=== PATIENT | female | born 1940 | race Caucasian/White ===

== ENCOUNTER → 2017-10-23 07:28 | Outpatient (CLI) | payer MEDICARE, MEDICAID, SELFPAY | PROVIDERS: PCP Nurse Practitioner Family; Visit Provider Surgery | DX: L97.921 Non-pressure chronic ulcer of unspecified part of left lower leg limited to breakdown of skin (principal) | CPT/HCPCS: 29580; 99213 ==

== ENCOUNTER → 2017-10-28 07:29 | Outpatient (CLI) | payer MEDICARE, MEDICAID, SELFPAY | PROVIDERS: PCP Nurse Practitioner Family; Visit Provider Surgery | DX: Z48.00 Encounter for change or removal of nonsurgical wound dressing (principal); L97.921 Non-pressure chronic ulcer of unspecified part of left lower leg limited to breakdown of skin | CPT/HCPCS: 29580 ==

== ENCOUNTER → 2017-11-04 08:55 | Outpatient (CLI) | payer MEDICARE, MEDICAID, SELFPAY | PROVIDERS: PCP Nurse Practitioner Family; Visit Provider Surgery | DX: L97.921 Non-pressure chronic ulcer of unspecified part of left lower leg limited to breakdown of skin (principal); Z48.00 Encounter for change or removal of nonsurgical wound dressing | CPT/HCPCS: 29580 ==

== ENCOUNTER → 2017-11-11 15:33 | Outpatient (CLI) | payer MEDICARE, MEDICAID, SELFPAY | PROVIDERS: PCP Nurse Practitioner Family; Visit Provider Surgery | DX: L97.921 Non-pressure chronic ulcer of unspecified part of left lower leg limited to breakdown of skin (principal); Z48.00 Encounter for change or removal of nonsurgical wound dressing | CPT/HCPCS: 99212 ==

== ENCOUNTER → 2017-11-12 11:57 | Outpatient (CLI) | payer MEDICARE, MEDICAID, SELFPAY ==
[2017-11-12 13:50] LABS: Ferritin 132 ng/mL (8-388)
== END ==
PROVIDERS: PCP Nurse Practitioner Family; Visit Provider Nurse Practitioner
DX: M25.50 Pain in unspecified joint (principal)
CPT/HCPCS: 36415; 82728

== ENCOUNTER → 2017-11-20 11:04 | Outpatient (BNVA) | payer MEDICARE, MEDICAID, SELFPAY | PROVIDERS: PCP Nurse Practitioner Family; Visit Provider Surgery | DX: L97.309 Non-pressure chronic ulcer of unspecified ankle with unspecified severity (principal) | CPT/HCPCS: 99211 ==

== ENCOUNTER → 2017-12-02 11:22 | Outpatient (BNVA) | payer MEDICARE, MEDICAID, SELFPAY | PROVIDERS: PCP Nurse Practitioner Family; Visit Provider Surgery | DX: L97.321 Non-pressure chronic ulcer of left ankle limited to breakdown of skin (principal); Z48.00 Encounter for change or removal of nonsurgical wound dressing | CPT/HCPCS: 99211 ==

== ENCOUNTER → 2017-12-06 09:12 | Outpatient (BNVA) | payer MEDICARE, MEDICAID, SELFPAY | PROVIDERS: PCP Nurse Practitioner Family; Referring Provider Nurse Practitioner Family; Visit Provider Surgery | DX: R69 Illness, unspecified (principal) ==

== ENCOUNTER → 2017-12-09 10:27 | Outpatient (BNVA) | payer MEDICARE, MEDICAID, SELFPAY | PROVIDERS: PCP Nurse Practitioner Family; Referring Provider Nurse Practitioner Family; Visit Provider Surgery | DX: L97.309 Non-pressure chronic ulcer of unspecified ankle with unspecified severity (principal); Z48.00 Encounter for change or removal of nonsurgical wound dressing | CPT/HCPCS: 99211; 99212 ==

== ENCOUNTER → 2017-12-11 09:55 | Outpatient (BNVA) | payer MEDICARE, MEDICAID, SELFPAY | PROVIDERS: PCP Nurse Practitioner Family; Referring Provider Nurse Practitioner Family; Visit Provider Surgery | DX: L97.321 Non-pressure chronic ulcer of left ankle limited to breakdown of skin (principal); Z48.00 Encounter for change or removal of nonsurgical wound dressing | CPT/HCPCS: 99211 ==

== ENCOUNTER → 2017-12-13 10:00 | Outpatient (BNVA) | payer MEDICARE, MEDICAID, SELFPAY | PROVIDERS: PCP Nurse Practitioner Family; Referring Provider Nurse Practitioner Family; Visit Provider Surgery | DX: R69 Illness, unspecified (principal) ==

== ENCOUNTER → 2017-12-16 10:22 | Outpatient (BNVA) | payer MEDICARE, MEDICAID, SELFPAY | PROVIDERS: PCP Nurse Practitioner Family; Referring Provider Nurse Practitioner Family; Visit Provider Surgery | DX: L97.329 Non-pressure chronic ulcer of left ankle with unspecified severity (principal); Z48.00 Encounter for change or removal of nonsurgical wound dressing; I10 Essential (primary) hypertension | CPT/HCPCS: 99211; 99212 ==

== ENCOUNTER → 2017-12-23 12:53 | Outpatient (BNVA) | payer MEDICARE, MEDICAID, SELFPAY | PROVIDERS: PCP Nurse Practitioner Family; Referring Provider Nurse Practitioner Family; Visit Provider Surgery | DX: L97.321 Non-pressure chronic ulcer of left ankle limited to breakdown of skin (principal); Z48.00 Encounter for change or removal of nonsurgical wound dressing | CPT/HCPCS: 99212 ==

== ENCOUNTER → 2017-12-30 10:33 | Outpatient (BNVA) | payer MEDICARE, MEDICAID, SELFPAY | PROVIDERS: PCP Nurse Practitioner Family; Referring Provider Nurse Practitioner Family; Visit Provider Surgery | DX: L97.321 Non-pressure chronic ulcer of left ankle limited to breakdown of skin (principal); I10 Essential (primary) hypertension | CPT/HCPCS: 99212; 99213 ==

== ENCOUNTER 2018-07-22 00:34 | Outpatient (CLI) | payer MEDICARE, MEDICAID, SELFPAY ==
--- NOTE | 2018-07-22 14:00 | DI.MAMMO_ITS ---
SYMPTOM/DIAGNOSIS: SCREENING, Z12.31, PERSONAL H/O BREAST CA, Z85.3, IN 2009 S/P RADIATION AND LUMPECTOMY MAMMOGRAMS: Mammograms were interpreted according to the usual protocol including computer analysis with CAD system, tomosynthesis and C view imaging. Comparison is with the prior examinations. There are postsurgical changes of a right breast lumpectomy. No suspicious masses or microcalcifications are seen. There has been no significant change compared to the prior examinations. IMPRESSION: No evidence for malignancy. Yearly mammography is recommended. Category 2, breast density C. MQSA ASSESSMENT OF FINDINGS: Negative with benign findings. Category 2. Patient will receive a letter notifying them of these results. Bi-RADS category C. The breasts are heterogeneously dense, which may obscure small masses.
[2018-07-22 14:42] LABS: Hemoglobin A1C 5.9 % (4.5-6.2)
[2018-07-22 15:23] LABS: Anion Gap 8.9 mmol/L (3-11); BUN 21 mg/dL (7-18); CO2 28.1 mmol/L (21.0-32.0); CREATININE 0.92 mg/dL (0.55-1.02); Calcium 9.1 mg/dL (8.5-10.1); Chloride 102 mmol/L (98-107); Cholesterol 191 mg/dL (50-200); Estimated GFR 59.51 (mL/min/1.73m2); Glucose 103 mg/dL (70-100); HDL Cholesterol 81 mg/dL (40-60); LDL CHOLESTEROL 100 mg/dL (<100); Potassium 4.2 mmol/L (3.5-5.1); Sodium 139 mmol/L (136-145); Triglyceride 49 mg/dL (30-150)
== END 2018-07-22 00:54 ==
PROVIDERS: PCP Nurse Practitioner Family; Visit Provider Nurse Practitioner Family
DX: Z12.31 Encounter for screening mammogram for malignant neoplasm of breast (principal); Z85.3 Personal history of malignant neoplasm of breast; E78.5 Hyperlipidemia, unspecified; R73.09 Other abnormal glucose; Z92.3 Personal history of irradiation
CPT/HCPCS: 77063; 77067; 80048; 80061; 83721; 83036

== ENCOUNTER 2019-07-18 13:05 | Emergency (ER) | payer MEDICARE, MEDICAID, SELFPAY ==
[2019-07-18 13:11] VITALS: BP 173/88; PULSE 87; RESP 20; TEMP 36.4; O2SAT 98
--- NOTE | 2019-07-18 13:30 | DI.CT_ITS ---
EXAM: CT CHEST WO CLINICAL HISTORY: s/p fall L side, bruising L neck/clavicle/chest TECHNIQUE: Imaging Protocol: Axial computed tomography images with coronal and sagittal reformatted images were created and reviewed CONTRAST MATERIAL: Intravenous: Omnipaque 350 Contrast volume:None COMPARISON: No exams were available for comparison FINDINGS: Tracheobronchial tree: Patent where visualized. Mediastinum and Patricia: No dominant adenopathy or fluid collection. Pulmonary parenchyma: No consolidation or dominant measurable mass. No architectural distortion. Pleura: No effusion or pneumothorax. Heart: The heart is not dilated. No coronary artery calcifications are seen. Aorta: Thoracic aorta non-dilated. Upper abdomen: There is a large hiatal hernia. Lymph nodes: Within normal limits. Bones: There is a fracture of the mid left clavicle with overriding of fracture fragments. The AC vivian int is not widened. There is no evidence of shoulder dislocation. The spine and sternum appear inta ct. IMPRESSION: Left clavicle fracture. Large hiatal hernia. RADIATION DOSE DELIVERED: Total DLP DATA REPOSITORY: All CT scans at this facility are submitted to the National Radiology Data Registry (NRDR) Dose Index Registry (DIR) with the [employer] ([employer]). RADIATION OPTIMIZATION: All CT scans at this facility use at least one of these dose optimization te chniques: automated exposure control; mA and/or kV adjustment per patient size (includes targeted exa ms where dose is matched to clinical indication); or iterative reconstruction.
--- NOTE | 2019-07-18 13:30 | DI.CT_ITS ---
EXAM: CT CERVICAL SPINE WO CLINICAL HISTORY: s/p fall onto L side, r/o acute inj L neck. TECHNIQUE: Imaging Protocol: Axial computed tomography images with coronal and sagittal reformatted images were created and reviewed CONTRAST MATERIAL: None COMPARISON: HEAD AND CSPINE W/O CONTRAST from 10/03/2017 FINDINGS: Bones: No fracture or dislocations are seen. There are degenerative disc changes greatest at C5-6. Facet degenerative changes are greatest in the upper cervical region causing mild spondylolisthesis. Soft Tissues: The soft tissues of the neck are unremarkable. IMPRESSION: Degenerative changes. No acute abnormality. RADIATION DOSE DELIVERED: Total DLP DATA REPOSITORY: All CT scans at this facility are submitted to the National Radiology Data Registry (NRDR) Dose Index Registry (DIR) with the [employer] (ACR). RADIATION OPTIMIZATION: All CT scans at this facility use at least one of these dose optimization te chniques: automated exposure control; mA and/or kV adjustment per patient size (includes targeted exa ms where dose is matched to clinical indication); or iterative reconstruction.
--- NOTE | 2019-07-18 13:38 | W.ED.GENAD ---
Discharge Plan Disposition Patient Disposition: HOME Condition: Stable Discharge Details Chief Complaint: Chest/Rib Clinical Impression: Closed fracture of left clavicle, Contusion of rib on left side Primary Care Provider: Liz Friend ED Provider: Tamie Valadez Home Meds and New Rx's Prescriptions: Continued lisinopril [Zestril] 20 mg tablet 20 mg PO DAILY Qty: 90 RF: 4 ropinirole 0.5 mg tablet 0.5 mg PO QHS Qty: 90 RF: 4 calcium carb,lactat-vitamin D3 200 mg calcium -250 unit tablet 1 tab PO BID RF: 0 multivitamin [Daily Vitamin] 1 EACH tablet 1 ea PO DAILY RF: 0 citalopram [Celexa] 10 mg tablet 10 mg PO DAILY Qty: 90 RF: 4 omeprazole 20 mg capsule,delayed release(DR/EC) 20 mg PO DAILY Qty: 90 RF: 4 Discharge Instructions Instructions: Clavicle Fracture (ED), Rib Contusion (ED) Additional Instructions: Apply ice to the affected area several times daily for 20 minutes at a time. Alternate tylenol and motrin as needed and directed for pain. You can apply Lidoderm patch to the affected area as needed and directed. Call orthopedics on Saturday to to discuss plan for follow-up. Return to the emergency department with any worsening or new concerning symptoms. Referrals: Tamie Valadez DO [Emergency Provider] - Riley Aguilar MD [ [facility] STAFF PHYSICIAN] - Mazin La MD [ [facility] STAFF PHYSICIAN] - Discharge Data Discharge Date/Time-TO BE ENTERED AT DEPARTURE: 07/18/19 15:14 Discharge Physician: Tamie Valadez Medical Decision Making 1315 -- 78-year-old female presents with left upper neck, clavicle, shoulder, rib status post fall 10 days ago at home. She has healing ecchymosis noted to left lateral neck, clavicle, inferior ribs. There is no crepitus. She has some pain with range of motion in her left shoulder. She is neurovascularly intact. No midline C-spine tenderness. No focal deficits. We will obtain a CT cervical spine and chest to rule out fracture. Will give a dose of ibuprofen and Lidoderm patch. 1445 --imaging reviewed. CT cervical spine negative. CT chest notes left clavicle fracture with suggestion of mild left AC separation. No rib fractures or pneumothorax. Sling placed. Patient placed on orthopedic follow-up list. Patient was offered stronger pain medication for here at home but declines. She was advised to alternate Tylenol and Motrin. She was advised to call orthopedics on Saturday morning for follow-up. Medical Records Medical records reviewed: Yes I reviewed the patient's medical records. Imaging Data Radiologic Study: Radiologist's impression: CT Chest Without Contrast Exam date and time: 07/18/2019 2:02 PM Age: 78 years old Clinical indication: Other: S/P fall L side, bruising L neck/clavicle/chest; Additional info: Shoulder included per doctor TECHNIQUE: Imaging protocol: Computed tomography of the chest without contrast. COMPARISON: No relevant prior studies available. FINDINGS: Lungs: Lung humphrey without features of consolidation. No infiltrates. No edema. Pleural space: No pleural effusions or pneumothorax. Heart: No pericardial effusion. Coronary artery atherosclerotic calcium. Mediastinum: Large hiatal hernia. Aorta: Unremarkable. No aortic aneurysm. Lymph nodes: Unremarkable. No enlarged lymph nodes. Bones/joints: No rib fractures are evident. A displaced left clavicle fracture is present. This shows complete displacement in the region of the mid shaft. There is no scapular fracture evident. The left humeral head and neck are unremarkable. There is slight widening of the left AC joint relative to the right side. This may represent a mild AC separation. Soft tissues: Unremarkable. IMPRESSION: 1. Displaced left clavicle fracture. There is suggestion of a mild left AC joint separation. 2. No rib fractures, scapular fracture or humeral fracture/dislocation. 3. No lung infiltrates or contusion. 4. No pleural effusions or pneumothorax. 5. Large hiatal hernia. CT Cervical Spine Without Contrast Exam date and time: 07/18/2019 1:37 PM Age: 78 years old Clinical indication: Other: S/P fall L side, bruising L neck/clavicle/chest; Additional info: Shoulder included per doctor TECHNIQUE: Imaging protocol: Computed tomography images of the cervical spine without contrast. Radiation optimization: All CT scans at this facility use at least one of these dose optimization techniques: automated exposure control; mA and/or kV adjustment per patient size (includes targeted exams where dose is matched to clinical indication); or iterative reconstruction. COMPARISON: CT HEAD NECK FACIAL WO 09/01/2017 11:15 AM FINDINGS: Vertebrae: Diffuse osteopenia. Degenerative anterolisthesis C3 on 4 measuring approximately 3 mm. There is also degenerative anterolisthesis of C4 on 5 measuring approximately 3 mm. No cervical spine fracture. No traumatic dislocation. Multilevel severe facet and uncovertebral joint degeneration. Discs/Spinal canal/Neural foramina: Degenerative disc disease with severe narrowing at C5-C6. Moderate degenerative disc space narrowing at C4-C5. No significant posterior disc bulge or herniation. Mild bilateral degenerative foraminal stenosis at C5-C6. Soft tissues: Moderate atherosclerotic carotid artery calcifications bilaterally.. Lungs: Bilateral mild scarring. IMPRESSION: 1. Degenerative cervical spine changes bilaterally. 2. No fracture or dislocation. HPI General Mode of arrival: ambulatory. Date/Time Provider Initiated Documentation: 07/18/19 13:09. Limitations to Documentation: no limitations. Information obtained by: patient. HPI Narrative: Patient is a 78-year-old female who presents with left lateral neck, left clavicle, left shoulder and left upper rib pain status post fall 10 days ago. Patient states she fell asleep in a chair in her kitchen when she fell and hit her left upper side on the hard tile floor. She denies any head injury or LOC. She states she called her PCP office that day and was advised to rest and take pain medication as needed. Patient states the pain has been persistent since then. She denies any difficulty breathing abdominal pain, change in appetite or vomiting. She has been taking Tylenol and applying topical Biofreeze to area without relief. Related Data Home Medications Medication Instructions Recorded Confirmed multivitamin [Daily Vitamin] 1 ea PO DAILY 10/01/12 07/18/19 citalopram 10 mg tablet 10 mg PO DAILY #90 tab-cap 10/17/18 07/18/19 omeprazole 20 mg capsule,delayed 20 mg PO DAILY #90 cap 11/28/18 07/18/19 release calcium carbonat and lactate 200 1 tab PO BID tab 07/03/19 07/18/19 mg calcium-vitamin D3 250 unit tablet lisinopril 20 mg tablet 20 mg PO DAILY #90 tab-cap 07/03/19 07/18/19 ropinirole 0.5 mg tablet 0.5 mg PO QHS #90 tab 07/09/19 07/18/19 Previous Rx's Medication Instructions Recorded citalopram 10 mg tablet 10 mg PO DAILY #90 tab-cap 10/17/18 omeprazole 20 mg capsule,delayed 20 mg PO DAILY #90 cap 11/28/18 release lisinopril 20 mg tablet 20 mg PO DAILY #90 tab-cap 07/03/19 ropinirole 0.5 mg tablet 0.5 mg PO QHS #90 tab 07/09/19 Allergies Allergy/AdvReac Type Severity Reaction Status Date / Time codeine AdvReac Mild GI Upset Verified 07/18/19 13:17 polymycin Allergy Mild Uncoded 07/18/19 13:17 polysorbates Allergy Mild eyes swell Uncoded 07/18/19 13:17 General Stated Complaint: Chest/Rib EMELIA: 3 Review of Systems All systems reviewed & are unremarkable except as noted in HPI and below Constitutional Constitutional: Reports as per HPI, Denies chills and Denies fever(s) Eyes Eyes: Denies blurry vision ENT Ears, Nose, Mouth, and Throat: Denies dizziness, Denies sore throat and Denies throat swelling Cardiovascular Cardiovascular: Reports chest pain and Denies dyspnea Respiratory Respiratory: Denies cough and Denies dyspnea Gastrointestinal Gastrointestinal: Denies abdominal pain, Denies diarrhea and Denies vomiting Genitourinary Genitourinary: Denies hematuria and Denies dysuria Musculoskeletal Musculoskeletal: Denies back pain, Denies numbness and Reports other (L clavicle/shoulder/rib pain) Integumentary/Breasts Skin/Breast: Denies lesions and Denies rash Neurologic Neurologic: Denies dizziness, Denies localized weakness and Denies numbness Allergic/Immunologic Allergic/Immunologic: Denies throat swelling [facility] Social History Smoking/Tobacco Use Status: Never Second Hand Exposure: Yes Alcohol Intake: former Drug use: Never Substance use type: does not use Caregiver/Support person: No Household members: none Housing: apartment Communication Needs: Corrective Lenses Do you need help understanding health information?: Rarely 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 Pets and animals: Yes Pets and animals: cat(s) Sexually active: Yes Do you think of yourself as: straight/heterosexual Current gender identity: female What is your relationship status?: How often do you talk on the phone with friends or family?: once per week How often do you get together with friends or relatives?: three or more times per week How often do you attend lutheran or catholic services?: 4 or more times per year Do you belong to any clubs or organized social groups?: yes Panel score (0-1 are the most socially isolated patients): 3 What type of physical activity do you participate in: walking and other Details: Wii bowling, tennis, etc. Duration: 30-45 minutes/day Frequency: 3-4 times per week Sylvia/Muslim: Anglican Special sylvia needs: No Agree to transfusion: Yes Seatbelt use: always Helmet use: No Drive intox or ride w/intox haul driver: No Do you feel safe at home: Yes Do you feel safe in your relationship?: Yes History History 5 Para 4 Hx # Term Pregnancies Multiple births Hx # Pregnancies Ectopic pregnancies AB induced 1 Hx Number of Living Children 3 AB spontaneous Exam Const General: cooperative, healthy appearing and no acute distress HENMT Head: normal to inspection Face and sinus: normal facial exam Eyes General: appearance normal, both eyes and all related structures EOM: EOM intact bilaterally Neck Neck: normal visual inspection and No submandibular swelling Lymphatic: no lymphadenopathy noted Chest Chest: normal inspection of the chest and no tenderness Resp Effort & Inspection: normal respiratory effort and able to speak in complete sentences Auscultation: clear to auscultation bilaterally Cardio Rate: regular rate Rhythm: regular rhythm GI Inspection: normal to inspection Palpation: soft, not firm, not rigid and nontender Auscultation: normal bowel sounds Skin General skin exam: no rashes or lesions noted Neuro General: patient alert, patient awake and patient oriented x3 Cognition: normal cognition Speech: speech normal Motor: muscle tone normal throughout Sensory Exam: no sensory deficits noted Extrem General: normal to inspection, full ROM, capillary refill normal, no calf tenderness bilaterally and no edema Psych Appearance: grossly normal Mental Status: mental status grossly normal Speech and Movement: speech and movement normal Affect: normal affect Course Vital Signs Vital signs: Vital Signs Temperature 97.5 F L 07/18/19 13:11 Pulse 87 07/18/19 13:11 Respiratory Rate 20 07/18/19 13:11 Blood Pressure 173/88 H 07/18/19 13:11 Pulse Oximetry 98 07/18/19 13:11 Temperature 97.5 F L 07/18/19 13:11 Temperature Source Temporal Artery Scan 07/18/19 13:11 Pulse 87 07/18/19 13:11 Respiratory Rate 20 07/18/19 13:11 Respiratory Effort Non-Labored 07/18/19 13:15 Blood Pressure 173/88 H 07/18/19 13:11 Blood Pressure Position Sitting 07/18/19 13:11 Pulse Oximetry 98 07/18/19 13:11 Oxygen Delivery Method Room Air 07/18/19 13:11 Oxygen Flow Rate 0 07/18/19 13:11 Pain Level 7 07/18/19 13:11
[2019-07-18] MEDS: Lidocaine 5% Patch 1 PATCH TP (13:46)
[2019-07-18] MEDS: Ibuprofen 600 MG TAB PO (13:47)
--- NOTE | 2019-07-18 14:24 | DI.VRAD_ITS ---
PROCEDURE INFORMATION: Exam: CT Cervical Spine Without Contrast Exam date and time: 07/18/2019 1:37 PM Age: 78 years old Clinical indication: Other: S/P fall L side, bruising L neck/clavicle/chest; Additional info: Shoulder included per doctor TECHNIQUE: Imaging protocol: Computed tomography images of the cervical spine without contrast. Radiation optimization: All CT scans at this facility use at least one of these dose optimization techniques: automated exposure control; mA and/or kV adjustment per patient size (includes targeted exams where dose is matched to clinical indication); or iterative reconstruction. COMPARISON: CT HEAD NECK FACIAL WO 09/01/2017 11:15 AM FINDINGS: Vertebrae: Diffuse osteopenia. Degenerative anterolisthesis C3 on 4 measuring approximately 3 mm. There is also degenerative anterolisthesis of C4 on 5 measuring approximately 3 mm. No cervical spine fracture. No traumatic dislocation. Multilevel severe facet and uncovertebral joint degeneration. Discs/Spinal canal/Neural foramina: Degenerative disc disease with severe narrowing at C5-C6. Moderate degenerative disc space narrowing at C4-C5. No significant posterior disc bulge or herniation. Mild bilateral degenerative foraminal stenosis at C5-C6. Soft tissues: Moderate atherosclerotic carotid artery calcifications bilaterally.. Lungs: Bilateral mild scarring. IMPRESSION: 1. Degenerative cervical spine changes bilaterally. 2. No fracture or dislocation. Dictated and Authenticated by: Flaco Hinkle MD. Ordering:MARITA Willett MD
--- NOTE | 2019-07-18 14:35 | DI.VRAD_ITS ---
PROCEDURE INFORMATION: Exam: CT Chest Without Contrast Exam date and time: 07/18/2019 2:02 PM Age: 78 years old Clinical indication: Other: S/P fall L side, bruising L neck/clavicle/chest; Additional info: Shoulder included per doctor TECHNIQUE: Imaging protocol: Computed tomography of the chest without contrast. COMPARISON: No relevant prior studies available. FINDINGS: Lungs: Lung humphrey without features of consolidation. No infiltrates. No edema. Pleural space: No pleural effusions or pneumothorax. Heart: No pericardial effusion. Coronary artery atherosclerotic calcium. Mediastinum: Large hiatal hernia. Aorta: Unremarkable. No aortic aneurysm. Lymph nodes: Unremarkable. No enlarged lymph nodes. Bones/joints: No rib fractures are evident. A displaced left clavicle fracture is present. This shows complete displacement in the region of the mid shaft. There is no scapular fracture evident. The left humeral head and neck are unremarkable. There is slight widening of the left AC joint relative to the right side. This may represent a mild AC separation. Soft tissues: Unremarkable. IMPRESSION: 1. Displaced left clavicle fracture. There is suggestion of a mild left AC joint separation. 2. No rib fractures, scapular fracture or humeral fracture/dislocation. 3. No lung infiltrates or contusion. 4. No pleural effusions or pneumothorax. 5. Large hiatal hernia. Dictated and Authenticated by: Flaco Hinkle MD. Ordering:MARITA Willett MD
[2019-07-18 15:08] VITALS: BP 173/72; PULSE 72; RESP 20; TEMP 36.8; O2SAT 99
== END 2019-07-18 15:14 | disposition home or self-care (01) ==
LOC: ER 15:05
PROVIDERS: Emergency Provider Physician Assistant; PCP Nurse Practitioner Family
DX: S42.022A Displaced fracture of shaft of left clavicle, initial encounter for closed fracture (principal); S20.212A Contusion of left front wall of thorax, initial encounter; S10.83XA Contusion of other specified part of neck, initial encounter; W07.XXXA Fall from chair, initial encounter; I10 Essential (primary) hypertension
CPT/HCPCS: 71250; 99284; 72125; 99285; L3650

== ENCOUNTER 2019-07-23 10:53 | Outpatient (REF) | payer MEDICARE, MEDICAID, SELFPAY ==
[2019-07-24 13:09] LABS: Anion Gap 5.5 mmol/L (3-11); BUN 27 mg/dL (7-18); CO2 28.5 mmol/L (21.0-32.0); Calcium 8.9 mg/dL (8.5-10.1); Calculated LDL 104 mg/dL (<100); Chloride 101 mmol/L (98-107); Cholesterol 183 mg/dL (<200); Estimated GFR 53.91 (mL/min/1.73m2); Glucose 102 mg/dL (74-106); HDL Cholesterol 63 mg/dL (40-60); Potassium 4.7 mmol/L (3.5-5.1); Sodium 135 mmol/L (136-145); Triglyceride 81 mg/dL (<150)
== END 2019-07-23 11:13 ==
LOC: LBN 10:53
PROVIDERS: PCP Nurse Practitioner Family; Visit Provider Nurse Practitioner Family
DX: R73.03 Prediabetes (principal)
CPT/HCPCS: 80048; 80061

== ENCOUNTER 2019-08-05 14:17 | Outpatient (CLI) | payer MEDICARE, MEDICAID, SELFPAY ==
--- NOTE | 2019-08-05 14:00 | DI.RAD_ITS ---
EXAM: XR CLAVICLE LT CLINICAL HISTORY: f/u fracture TECHNIQUE: 2D digital imaging was performed. COMPARISON: CR LEFT SHOULDER COMPLETE from 10/03/[address] CHEST WO from 07/18/2019 FINDINGS: BONES: There is a fracture of the midshaft of the left clavicle. There is overriding of the fracture . No bony destructive lesion is seen. JOINTS: The acromioclavicular joint appears well maintained. SOFT TISSUE: Normal. IMPRESSION: Fracture of the midshaft of the left clavicle. DATA REPOSITORY: RADIATION DOSE DELIVERED:
== END 2019-08-05 14:37 ==
PROVIDERS: PCP Nurse Practitioner Family; Referring Provider Nurse Practitioner Family; Visit Provider Student in an Organized Health Care Education/Training Program
DX: S42.022A Displaced fracture of shaft of left clavicle, initial encounter for closed fracture (principal); W19.XXXA Unspecified fall, initial encounter
CPT/HCPCS: 99204; 99215; 73000

== ENCOUNTER 2019-09-16 08:26 | Outpatient (CLI) | payer MEDICARE, MEDICAID, SELFPAY ==
--- NOTE | 2019-09-16 13:15 | DI.RAD_ITS ---
EXAM: XR CLAVICLE LT CLINICAL HISTORY: L clavicle fx TECHNIQUE: 2D digital imaging was performed. COMPARISON: CR XR CLAVICLE LT from 08/05/2019 FINDINGS: There is again seen a fracture of the midshaft of the left clavicle. There is overriding of the frac ture fragments. The acromioclavicular joint appears stable. The bones are osteopenic. No new fract ure or dislocation is seen. The soft tissues are unremarkable. IMPRESSION: Left clavicular fracture. DATA REPOSITORY: RADIATION DOSE DELIVERED:
== END 2019-09-16 08:46 ==
PROVIDERS: PCP Nurse Practitioner Family; Visit Provider Physician Assistant
DX: S42.022D Displaced fracture of shaft of left clavicle, subsequent encounter for fracture with routine healing (principal); X58.XXXD Exposure to other specified factors, subsequent encounter
CPT/HCPCS: 99213; 73000

== ENCOUNTER 2019-11-04 15:49 | Outpatient (CLI) | payer MEDICARE, MEDICAID, SELFPAY ==
--- NOTE | 2019-11-04 13:45 | DI.RAD_ITS ---
EXAM: XR CLAVICLE LT INDICATION: fu fracture left clavicle. COMPARISON: CR XR CLAVICLE LT from 09/16/2019 TECHNIQUE: 2D digital imaging was performed. FINDINGS: There has been continued healing of the distal clavicular fracture. No new abnormalities are seen. DATA REPOSITORY: RADIATION DOSE DELIVERED:
== END 2019-11-04 16:09 ==
PROVIDERS: PCP Nurse Practitioner Family; Referring Provider Nurse Practitioner Family; Visit Provider Student in an Organized Health Care Education/Training Program
DX: S42.032D Displaced fracture of lateral end of left clavicle, subsequent encounter for fracture with routine healing (principal); X58.XXXD Exposure to other specified factors, subsequent encounter; I10 Essential (primary) hypertension
CPT/HCPCS: 99213; 73000

== ENCOUNTER 2019-11-16 03:28 | Emergency (ER) | payer MEDICARE, MEDICAID, SELFPAY ==
[2019-11-16] VITALS (109 sets, daily range): BP systolic 120–199; BP diastolic 47–156; PULSE 73–119; RESP 7–26; TEMP 36.4–37; O2SAT 89–100
--- NOTE | 2019-11-16 03:15 | RT.EKG_ITS ---
APPROVED REPORT Exam: Resting ECG Patient Location: E HR:95 bpm ECG Measurements Heart Rate 95 AXIS MT 189 P 70 QRSd 92 QRS 62 QT 351 T 91 QTc 442 Conclusion Sinus rhythm...normal P axis, V-rate 60- 99 Nonspecific T abnormalities, lateral leads...T <-0.10mV, I aVL V5 V6
--- NOTE | 2019-11-16 03:40 | ED.GENADUL_ITS ---
Discharge Plan Disposition Patient Disposition: [facility] Condition: Stable Discharge Details Chief Complaint: Palpitatns Clinical Impression: Palpitations, Acute UTI, NSTEMI (non-ST elevated myocardial infarction) Primary Care Provider: Liz Friend ED Provider: Tamie Valadez Home Meds and New Rx's Prescriptions: New levofloxacin 750 mg tablet 750 mg PO DAILY Qty: 5 RF: 0 No Action lisinopril [Zestril] 20 mg tablet 20 mg PO DAILY Qty: 90 RF: 4 ropinirole 0.5 mg tablet 0.5 mg PO QHS Qty: 90 RF: 4 calcium carb,lactat-vitamin D3 200 mg calcium -250 unit tablet 1 tab PO BID RF: 0 multivitamin [Daily Vitamin] 1 EACH tablet 1 ea PO DAILY RF: 0 omeprazole 20 mg capsule,delayed release(DR/EC) 20 mg PO DAILY Qty: 90 RF: 4 citalopram [Celexa] 10 mg tablet 10 mg PO DAILY Qty: 90 RF: 4 Discharge Instructions Additional Instructions: if you feel more ill, have difficulty breathing or chest pain/pressure return to the emergency department Medical Decision Making <Gregorio Gamboa MD - Last Filed: 11/16/19 07:06> 79 yo female with hx of htn and gerd comes in after she fell asleep in her recliner then woke up with feeling her heart racing and nausea. Denies fevers, dyspnea, chest pressure, diaphoresis. She arrives HD stable and denies any symptoms currently on exam with clear lungs no jvd,speaking in full sentences and no leg swelling or calf pain. Could have been in svt or afib, in sinus rhythm now. No symptoms such as feeling like she was going to pass out or loc so doubt vtach. No chest pain /pressure so doubt acs but given age could present atypically, will obtain troponin. No evidence of dvt and no hypoxia or tachyc ardia, wells score is low will obtain d dimer to evaluate for PE. No tearing back pain and normal vascular exam so doubt dissection pt's blood work shows no clinically significant abnormalities and d dimer below age adjusted threshold. UA consistent with uti and she states she now has had dysuria on reassesment. Was asleep and awoken to voice without complaints on repeat exam. Will continue to monitor and obtain delta troponin and ecg second troponin mildly elevated at 0.08 and she remains pain free, still states her symptoms were feeling heart racing and did now remember becoming sweaty when this happened. No symptoms now. Will start heparin and asa and discuss with cardiology at [facility] [place] pt signed out to oncoming provider pending cardiology consult Differential Diagnosis Differential Diagnosis: svt, afib, acs Medical Records Medical records reviewed: Yes I reviewed the patient's medical records. Lab Data Lab results reviewed: Yes I reviewed the patient's lab results. ECG Data Attestation: I personally reviewed and interpreted this ECG (s) as follows: Prior ECG tracings: not available for review Interpretation: sinus rhythm, rate of 95, pr 189, no acute st twave ischemic findings 2nd ekg sinus rhythm, HR of 81, pr 181, no acute st t wave ischemic changes <Tamie Valadez DO - Last Filed: 11/16/19 15:15> 0800 --please see Dr. Gamboa's note for initial presentation, exam and plan. Case endorsed to follow-up with [facility] regarding disposition. A portable chest x-ray was obtained which was negative for acute disease. Patient is currently asymptomatic. 0845 --discussed with [facility] cardiology who reviewed EKGs. Accepts patient for transfer for NSTEMI. Accepting physician Dr. Fields. Would like Plavix 300 mg p.o. x1. Agree with plan for heparin drip. Patient remains hemodynamically stable. Patient is agreeable with plan for transfer. Requested posterior EKG and repeat troponin. Posterior EKG noted less than [address] depression in V4R ad V7, no worsening ST elevation. Repeat troponin 0.09. Spoke with both of patient's daughters who were notified of plan and agreeable. Patient states she is a full code at this time with plan for transfer and possible cardiac cath. 1440 -- Trop uptrending to 0.28. EKG appears slightly improved in inferior leads. Pt remains asymptomatic. D/w [facility] transfer center and bed placement and will likely be a couple more hours until bed availability. Medical Records Medical records reviewed: Yes I reviewed the patient's medical records. Imaging Data Radiologic Study: Radiologist's impression: XR PORTABLE CHEST AP CLINICAL HISTORY: palpitations, r/o acute disease TECHNIQUE: 2D digital imaging was performed. COMPARISON: CR CHEST 2 VIEWS PA,LAT from 08/28/2016 CR LEFT SHOULDER COMPLETE from 10/03/2017 FINDINGS: MEDIASTINUM: Large hiatal hernia. HEART: Normal. PULMONARY VASCULATURE: Normal. Atherosclerosis of the thoracic aorta. LUNGS: Clear. Hyperinflation of the lungs suggesting underlying COPD. PLEURAL SPACE: No pleural effusion or pneumothorax. BONE:Healing left clavicular fracture is again seen. OTHER FINDINGS:Normal. IMPRESSION: No acute pulmonary findings. Lab Data Lab results reviewed: Yes I reviewed the patient's lab results. Labs: 11/16/19 03:55 Urine - Reflex from Ua Urine Culture - Pending Laboratory Tests Range/Units 11/16/19 11/16/19 11/16/19 03:40 03:40 03:40 WBC (4.4-10.8) 10^3/uL 3.95 L RBC (3.93-5.22) 10^6/uL 3.99 Hgb (11.2-15.7) g/dL 12.1 Hct (36.0-46.0) % 37.4 MCV (80-95) fL 93.7 MCH (27.0-33.0) pg 30.3 MCHC (32.0-36.0) % 32.4 RDW (11.7-14.6) % 12.3 Plt Count (130-400) 10^3/uL 179 MPV (8.0-11.0) fL 11.6 H Immature Gran % 0.3 Neutrophils % 69.0 Lymphocytes % 17.0 Monocytes % 11.1 Eosinophils % 1.8 Basophils % 0.8 Nucleated RBC % % 0 Absolute Neutrophils (1.2-6.7) 10^3/uL 2.73 Absolute Lymphocytes (1.2-3.4) 10^3/uL 0.67 L Absolute Monocytes (0.1-0.8) 10^3/uL 0.44 Absolute Eosinophils (0.0-0.7) 10^3/uL 0.07 Absolute Basophils (0.0-0.2) 10^3/uL 0.03 PT (9.3-11.0) sec INR (0.9-1.1) APTT (21.0-31.4) sec D-Dimer (<500) ng/mlFEU Sodium (136-145) mmol/L 133 L Potassium (3.5-5.1) mmol/L 4.0 Chloride (98-107) mmol/L 99 Carbon Dioxide (21.0-32.0) mmol/L 25.0 Anion Gap (3-11) mmol/L 9.0 BUN (7-18) mg/dL 24 H Creatinine (0.55-1.02) mg/dL 1.26 H Estimated GFR/1.73 m2 (mL/min/1.73m2) 41.18 Glucose (74-106) mg/dL 127 H Calcium (8.5-10.1) mg/dL 8.5 Magnesium (1.8-2.4) mg/dL 1.7 L Total Bilirubin (0.2-1.0) mg/dL 0.2 AST (15-37) U/L 22 ALT (14-59) U/L 21 Alkaline Phosphatase (46-116) U/L 54 Troponin I (<0.06) ng/mL < 0.05 NT-Pro-B Natriuret Pep (<300) pg/mL 141 Total Protein (6.4-8.2) g/dL 6.7 Albumin (3.4-5.0) g/dL 3.5 Urine Color (Yellow) Urine Clarity (Clear) Urine pH (5-8) Ur Specific [place] (1.005-1.025) Urine Protein (Negative) mg/dL Urine Ketones (Negative) mg/dL Urine Blood (Negative) Urine Nitrite (Negative) Urine Bilirubin (Negative) Urine Urobilinogen (Up TO 0.2) EU/dL Ur Leukocyte Esterase (Negative) Urine RBC (0-2) HPF Urine WBC (0-5) HPF Ur Epithelial Cells (Negative) HPF Urine Crystals (Negative) HPF Urine Bacteria (Negative) HPF Urine Casts (Negative) LPF Urine Mucus (Negative) Ur Culture Indicated? Urine Glucose (Negative) mg/dL Range/Units 11/16/19 11/16/19 11/16/19 03:40 03:40 03:55 WBC (4.4-10.8) 10^3/uL RBC (3.93-5.22) 10^6/uL Hgb (11.2-15.7) g/dL Hct (36.0-46.0) % MCV (80-95) fL MCH (27.0-33.0) pg MCHC (32.0-36.0) % RDW (11.7-14.6) % Plt Count (130-400) 10^3/uL MPV (8.0-11.0) fL Immature Gran % Neutrophils % Lymphocytes % Monocytes % Eosinophils % Basophils % Nucleated RBC % % Absolute Neutrophils (1.2-6.7) 10^3/uL Absolute Lymphocytes (1.2-3.4) 10^3/uL Absolute Monocytes (0.1-0.8) 10^3/uL Absolute Eosinophils (0.0-0.7) 10^3/uL Absolute Basophils (0.0-0.2) 10^3/uL PT (9.3-11.0) sec 9.6 INR (0.9-1.1) 1.0 APTT (21.0-31.4) sec 24.3 D-Dimer (<500) ng/mlFEU 718 H Sodium (136-145) mmol/L Potassium (3.5-5.1) mmol/L Chloride (98-107) mmol/L Carbon Dioxide (21.0-32.0) mmol/L Anion Gap (3-11) mmol/L BUN (7-18) mg/dL Creatinine (0.55-1.02) mg/dL Estimated GFR/1.73 m2 (mL/min/1.73m2) Glucose (74-106) mg/dL Calcium (8.5-10.1) mg/dL Magnesium (1.8-2.4) mg/dL Total Bilirubin (0.2-1.0) mg/dL AST (15-37) U/L ALT (14-59) U/L Alkaline Phosphatase (46-116) U/L Troponin I (<0.06) ng/mL NT-Pro-B Natriuret Pep (<300) pg/mL Total Protein (6.4-8.2) g/dL Albumin (3.4-5.0) g/dL Urine Color (Yellow) Yellow Urine Clarity (Clear) Clear Urine pH (5-8) 6.0 Ur Specific [place] (1.005-1.025) >= 1.030 H Urine Protein (Negative) mg/dL 30 H Urine Ketones (Negative) mg/dL Negative Urine Blood (Negative) Negative Urine Nitrite (Negative) Negative Urine Bilirubin (Negative) Negative Urine Urobilinogen (Up TO 0.2) EU/dL 0.2 Ur Leukocyte Esterase (Negative) Small H Urine RBC (0-2) HPF Negative Urine WBC (0-5) HPF 20-50 H Ur Epithelial Cells (Negative) HPF Few Urine Crystals (Negative) HPF Negative Urine Bacteria (Negative) HPF Few Urine Casts (Negative) LPF Negative Urine Mucus (Negative) Negative Ur Culture Indicated? Yes Urine Glucose (Negative) mg/dL Negative Range/Units 11/16/19 11/16/19 06:10 09:23 WBC (4.4-10.8) 10^3/uL RBC (3.93-5.22) 10^6/uL Hgb (11.2-15.7) g/dL Hct (36.0-46.0) % MCV (80-95) fL MCH (27.0-33.0) pg MCHC (32.0-36.0) % RDW (11.7-14.6) % Plt Count (130-400) 10^3/uL MPV (8.0-11.0) fL Immature Gran % Neutrophils % Lymphocytes % Monocytes % Eosinophils % Basophils % Nucleated RBC % % Absolute Neutrophils (1.2-6.7) 10^3/uL Absolute Lymphocytes (1.2-3.4) 10^3/uL Absolute Monocytes (0.1-0.8) 10^3/uL Absolute Eosinophils (0.0-0.7) 10^3/uL Absolute Basophils (0.0-0.2) 10^3/uL PT (9.3-11.0) sec INR (0.9-1.1) APTT (21.0-31.4) sec D-Dimer (<500) ng/mlFEU Sodium (136-145) mmol/L Potassium (3.5-5.1) mmol/L Chloride (98-107) mmol/L Carbon Dioxide (21.0-32.0) mmol/L Anion Gap (3-11) mmol/L BUN (7-18) mg/dL Creatinine (0.55-1.02) mg/dL Estimated GFR/1.73 m2 (mL/min/1.73m2) Glucose (74-106) mg/dL Calcium (8.5-10.1) mg/dL Magnesium (1.8-2.4) mg/dL Total Bilirubin (0.2-1.0) mg/dL AST (15-37) U/L ALT (14-59) U/L Alkaline Phosphatase (46-116) U/L Troponin I (<0.06) ng/mL 0.08 H* 0.09 H* NT-Pro-B Natriuret Pep (<300) pg/mL Total Protein (6.4-8.2) g/dL Albumin (3.4-5.0) g/dL Urine Color (Yellow) Urine Clarity (Clear) Urine pH (5-8) Ur Specific [place] (1.005-1.025) Urine Protein (Negative) mg/dL Urine Ketones (Negative) mg/dL Urine Blood (Negative) Urine Nitrite (Negative) Urine Bilirubin (Negative) Urine Urobilinogen (Up TO 0.2) EU/dL Ur Leukocyte Esterase (Negative) Urine RBC (0-2) HPF Urine WBC (0-5) HPF Ur Epithelial Cells (Negative) HPF Urine Crystals (Negative) HPF Urine Bacteria (Negative) HPF Urine Casts (Negative) LPF Urine Mucus (Negative) Ur Culture Indicated? Urine Glucose (Negative) mg/dL ECG Data Attestation: I personally reviewed and interpreted this ECG (s) as follows: Interpretation: #1 -- rate of 95, sinus, less than [address] elevation in 2, 3, aVF with less than [address] depression in 1, aVL, V4 and V5 which appears new compared to previous 2017. T wave inversion in aVL. MS 189. QRS 92. QTc 442. #2 -- rate of 81, sinus, [address] elevation in 2, 3, aVF which appears more pronounced compared to previous. T wave inversion in aVL. No acute ST depression noted. MS 181. QRS 86. QTc 462. #3 -- rate of 81, sinus, 1mm ST elevation in 2, 3, aVF. T wave inversion in aVL. No acute ST depression noted. MS 179. QRS 84. QTc 458. #4 -- rate of 90, sinus, less than 1mm ST elevation in 2, 3, aVF. T wave inve rsion in aVL. No acute ST depression noted. MS 173. QRS 84. QTc 458. HPI <Gregorio Gamboa MD - Last Filed: 11/16/19 07:06> General Mode of arrival: EMS . Date/Time Provider Initiated Documentation: 11/16/19 03:36 . Limitations to Documentation: no limitations . Information obtained by: patient . History of Present Illness 79 year old F presents to the emergency department with the chief complaint of felt heart racing, described as moderate, Patient started experiencing this hour(s) (1) and it has been now resolved. No relieving factors improve symptom(s), No exacerbating factors reported . Patient did receive the following treatments prior to arrival, none Related Data Home Medications Medication Instructions Recorded Confirmed multivitamin [Daily Vitamin] 1 ea PO DAILY 10/01/12 11/16/19 omeprazole 20 mg capsule,delayed 20 mg PO DAILY #90 cap 11/28/18 11/16/19 release calcium carbonat and lactate 200 1 tab PO BID tab 07/03/19 11/16/19 mg calcium-vitamin D3 250 unit tablet lisinopril 20 mg tablet 20 mg PO DAILY #90 tab-cap 07/03/19 11/16/19 ropinirole 0.5 mg tablet 0.5 mg PO QHS #90 tab 07/09/19 11/16/19 citalopram 10 mg tablet 10 mg PO DAILY #90 tab-cap 10/21/19 11/16/19 levofloxacin 750 mg PO DAILY #5 tab 11/16/19 Previous Rx's Medication Instructions Recorded omeprazole 20 mg capsule,delayed 20 mg PO DAILY #90 cap 11/28/18 release lisinopril 20 mg tablet 20 mg PO DAILY #90 tab-cap 07/03/19 ropinirole 0.5 mg tablet 0.5 mg PO QHS #90 tab 07/09/19 citalopram 10 mg tablet 10 mg PO DAILY #90 tab-cap 10/21/19 levofloxacin 750 mg PO DAILY #5 tab 11/16/19 Allergies Allergy/AdvReac Type Severity Reaction Status Date / Time codeine AdvReac Mild GI Upset Verified 11/16/19 03:36 polymycin Allergy Mild Uncoded 11/16/19 03:36 polysorbates Allergy Mild eyes swell Uncoded 11/16/19 03:36 General Stated Complaint: Palpitatns EMELIA: 3 Review of Systems <Gregorio Gamboa MD - Last Filed: 11/16/19 07:06> All systems reviewed & are unremarkable except as noted in HPI and below Constitutional Constitutional: Denies chills, Denies fever(s) and Denies weakness Cardiovascular Cardiovascular: Denies chest pain and Denies dyspnea Respiratory Respiratory: Denies cough and Denies dyspnea Gastrointestinal Gastrointestinal: Denies abdominal pain, Denies nausea and Denies vomiting Musculoskeletal Musculoskeletal: Denies joint swelling Neurologic Neurologic: Denies weakness Psychiatric Psychiatric: Denies depression [facility] <Gregorio Gamboa MD - Last Filed: 11/16/19 07:06> Medical History (Updated 11/16/19 @ 08:42 by Tamie Valadez DO) Depressive disorder (Chronic) DNR (do not resuscitate) (Chronic) Essential hypertension (Chronic) GERD (gastroesophageal reflux disease) (Chronic) Iron deficiency anemia (Resolved) 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, ER+, MS+, s/p partial mastectomy and radiation Osteoporosis (Chronic) Periodic limb movement disorder (Chronic) Prediabetes (Chronic) Sensorineural hearing loss, bilateral (Chronic) Sigmoid diverticulosis (Inactive) Ulcer of ankle (Resolved) Surgical History History of bilateral tubal ligation (Acute ~07/1980) S/P cataract surgery (Acute ~2012) 03/2012 right eye; 05/2012 left eye Status post partial mastectomy of right breast (Inactive 05/30/09) Family History Mother , 84 Epilepsy Heart disease Type 2 diabetes mellitus Father , 71 Heart disease Sister , 74 Essential hypertension Osteoporosis Alzheimer disease Depression Stroke Schizophrenia Type 2 diabetes mellitus Brother , 65 Epilepsy Type 2 diabetes mellitus Daughter Stomach ulcer Daughter , at 31 of suicide Depression Daughter Essential hypertension Asthma Daughter Depression Paternal Grandfather , at 44 of [place] Paternal Grandmother , 72 +/- Stroke Maternal Grandfather , 100 Pneumonia No problems noted. 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 Pets and animals: Yes Pets and animals: cat(s) Sexually active: Yes Do you think of yourself as: straight/heterosexual Current gender identity: female What is your relationship status?: How often do you talk on the phone with friends or family?: once per week How often do you get together with friends or relatives?: three or more times per week How often do you attend sikh or worship services?: 4 or more times per year Do you belong to any clubs or organized social groups?: yes Panel score (0-1 are the most socially isolated patients): 3 What type of physical activity do you participate in: walking and other Details: Wii bowling, tennis, etc. Duration: 30-45 minutes/day Frequency: 3-4 times per week Sylvia/Shinto: Holiness Special sylvia needs: No Agree to transfusion: Yes Seatbelt use: always Helmet use: No Drive intox or ride w/intox trencher driver: No Do you feel safe at home: Yes Do you feel safe in your relationship?: Yes History History 5 Para 4 Hx # Term Pregnancies Multiple births Hx # Pregnancies Ectopic pregnancies AB induced 1 Hx Number of Living Children 3 AB spontaneous Exam <Gregorio Gamboa MD - Last Filed: 11/16/19 07:06> Const General: no acute distress Orientation: alert HENMT Head: normal to inspection Ears: external ears normal General nose exam: external nose normal Mouth: moist mucous membranes Eyes General: appearance normal, both eyes and all related structures Neck Neck: normal visual inspection Resp Effort & Inspection: normal respiratory effort and able to speak in complete sentences Cardio Rate: regular rate Skin General skin exam: no rashes or lesions noted Neuro General: patient alert and patient oriented x3 Extrem General: normal to inspection Psych Mental Status: mental status grossly normal Course <Gregorio Gamboa MD - Last Filed: 11/16/19 07:06> Vital Signs Vital signs: Vital Signs Temperature 36.5 C 11/16/19 03:32 Pulse 99 H 11/16/19 03:32 Respiratory Rate 16 11/16/19 03:32 Blood Pressure 141/60 H 11/16/19 03:32 Pulse Oximetry 98 11/16/19 03:32 Temperature 36.5 C 11/16/19 03:32 Temperature Source Skin 11/16/19 03:32 Pulse 99 H 11/16/19 03:32 Respiratory Rate 16 11/16/19 03:32 Respiratory Effort Non-Labored 11/16/19 03:37 Blood Pressure 141/60 H 11/16/19 03:32 Pulse Oximetry 98 11/16/19 03:32 Pain Level 0 11/16/19 03:32 Critical Care Time <Gregorio Gamboa MD - Last Filed: 11/16/19 07:06> Critical Care Time Critical Care Time: Yes Total Critical Care Time: 45 Attestation: time spent reviewing labs, frequent reassessments and hemodynamic monitoring in a patient with nstemi and potential to deteriorate at any time Sign Out <Gregorio Gamboa MD - Last Filed: 11/16/19 07:06> Sign Out Data: Sign Out Comment: repeat troponin 0.08, awaiting cardiology consult at [facility] [place] Last updated by Gregorio Gamboa MD at 11/16/19 07:13
[2019-11-16 03:49] LABS: Abs Immature Grans 0.01 10^3/uL (0.0-0.06); Absolute Basophil Count 0.03 10^3/uL (0.0-0.2); Absolute Eosinophil Count 0.07 10^3/uL (0.0-0.7); Absolute Lymphocyte Count 0.67 10^3/uL (1.2-3.4); Absolute Monocyte Count 0.44 10^3/uL (0.1-0.8); Absolute Neutrophil Count 2.73 10^3/uL (1.2-6.7); Basophils % 0.8; Eosinophils % 1.8; HCT 37.4 % (36.0-46.0); HGB 12.1 g/dL (11.2-15.7); Immature Grans % 0.3; MCH 30.3 pg (27.0-33.0); MCHC 32.4 % (32.0-36.0); MCV 93.7 fL (80-95); MPV 11.6 fL (8.0-11.0); Monocytes % 11.1; Nucleated RBC 0 %; Platelet Count 179 10^3/uL (130-400); RBC 3.99 10^6/uL (3.93-5.22); RDW 12.3 % (11.7-14.6); RDW-SD 42.9 fL; WBC 3.95 10^3/uL (4.4-10.8)
[2019-11-16 04:01] LABS: Bilirubin Negative (Negative); Blood Negative (Negative); Clarity Clear (Clear); Glucose Negative (Negative); Ketones Negative (Negative); Leukocyte Esterase Small (Negative); Nitrite Negative (Negative); Specific Gravity >= 1.030 (1.005-1.025); Urobilinogen 0.2 EU/dL (Up TO 0.2)
[2019-11-16 04:04] LABS: PTT Activated 24.3 sec (21.0-31.4); Prothrombin Time 9.6 sec (9.3-11.0)
[2019-11-16 04:05] LABS: WBC 20-50 HPF (0-5)
[2019-11-16 04:06] LABS: Bacteria Few HPF (Negative); C & S Indicated? Yes; Casts Negative LPF (Negative); Crystals Negative HPF (Negative); Epithelial Cells Few HPF (Negative); Mucus Negative (Negative); RBC Negative HPF (0-2)
[2019-11-16 04:06] LABS: ALT 21 U/L (14-59); AST 22 U/L (15-37); Albumin 3.5 g/dL (3.4-5.0); Alkaline Phosphatase 54 U/L (46-116); BUN 24 mg/dL (7-18); Bilirubin, Total 0.2 mg/dL (0.2-1.0); CREATININE 1.26 mg/dL (0.55-1.02); Calcium 8.5 mg/dL (8.5-10.1); Chloride 99 mmol/L (98-107); Estimated GFR 41.18 (mL/min/1.73m2); Glucose 127 mg/dL (74-106); Magnesium 1.7 mg/dL (1.8-2.4); Sodium 133 mmol/L (136-145); Total Protein 6.7 g/dL (6.4-8.2)
[2019-11-16 04:08] LABS: Troponin I < 0.05 ng/mL (<0.06)
[2019-11-16 04:12] LABS: NT-proBNP 141 pg/mL (<300)
[2019-11-16] MEDS: Normal Saline 1,000 ML 1000 ML IV (04:30)
[2019-11-16 04:36] LABS: D-Dimer 718 ng/mlFEU (<500)
--- NOTE | 2019-11-16 04:45 | RT.EKG_ITS ---
APPROVED REPORT Exam: Resting ECG Patient Location: E HR:81 bpm ECG Measurements Heart Rate 81 AXIS IL 181 P 72 QRSd 86 QRS 58 QT 396 T 78 QTc 462 Conclusion Sinus rhythm...normal P axis, V-rate 60- 99
[2019-11-16] MEDS: levoFLOXacin 500 MG, levoFLOXacin 250 MG 750 MG PO (05:45)
[2019-11-16 06:40] LABS: Troponin I 0.08 ng/mL (<0.06)
[2019-11-16] MEDS: Aspirin 81 MG CHEW 324 MG CH (06:52)
--- NOTE | 2019-11-16 07:45 | DI.RAD_ITS ---
EXAM: XR PORTABLE CHEST AP CLINICAL HISTORY: palpitations, r/o acute disease TECHNIQUE: 2D digital imaging was performed. COMPARISON: CR CHEST 2 VIEWS PA,LAT from 08/28/2016 CR LEFT SHOULDER COMPLETE from 10/03/2017 FINDINGS: MEDIASTINUM: Large hiatal hernia. HEART: Normal. PULMONARY VASCULATURE: Normal. Atherosclerosis of the thoracic aorta. LUNGS: Clear. Hyperinflation of the lungs suggesting underlying COPD. PLEURAL SPACE: No pleural effusion or pneumothorax. BONE:Healing left clavicular fracture is again seen. OTHER FINDINGS:Normal. IMPRESSION: No acute pulmonary findings. DATA REPOSITORY: RADIATION DOSE DELIVERED:
--- NOTE | 2019-11-16 09:00 | RT.EKG_ITS ---
APPROVED REPORT Exam: Resting ECG Patient Location: E HR:81 bpm ECG Measurements Heart Rate 81 AXIS DC 179 P 55 QRSd 84 QRS 56 QT 395 T 76 QTc 458 Conclusion Sinus rhythm...normal P axis, V-rate 60- 99. 1mm ST elevation in II, III, aVF, seen in previous. T wave inversion in aVL. No ST depression noted.
[2019-11-16] MEDS: Clopidogrel 300 MG TAB PO (09:05)
[2019-11-16 09:51] LABS: Troponin I 0.09 ng/mL (<0.06)
[2019-11-16] MEDS: Lisinopril 20 MG TAB PO (10:37)
[2019-11-16] MEDS: Patient's Own Medication 1 EACH MISC PO ×2 (10:45)
--- NOTE | 2019-11-16 13:45 | RT.EKG_ITS ---
APPROVED REPORT Exam: Resting ECG Patient Location: E HR:90 bpm ECG Measurements Heart Rate 90 AXIS FL 173 P 55 QRSd 84 QRS 61 QT 374 T 80 QTc 458 Conclusion Sinus rhythm...normal P axis, V-rate 60- 99 Normal Electrocardiogram
[2019-11-16 14:24] LABS: PTT Activated 67.6 sec (21.0-31.4); Prothrombin Time 10.5 sec (9.3-11.0)
[2019-11-16 14:28] LABS: Troponin I 0.28 ng/mL (<0.06)
--- NOTE | 2019-11-16 16:11 | NUR.NOTE ---
Nursing Note: Notified Theora, daughter that her mother has just left to go to [facility] [place] with JOSE. Melony Louis
== END 2019-11-16 16:10 | disposition short-term general hospital (02) ==
PROVIDERS: Emergency Medicine; Emergency Provider Physician Assistant; PCP Nurse Practitioner Family
DX: I21.4 Non-ST elevation (NSTEMI) myocardial infarction (principal); R00.2 Palpitations; N39.0 Urinary tract infection, site not specified; R11.0 Nausea; I10 Essential (primary) hypertension
CPT/HCPCS: 36415; 80053; 93005; 96365; 96366; 96376; 99291; 71045; 81003; 81015; 83735; 83880; 84484; 85025; 85379; 85610; 85730; 87086; 93010

== ENCOUNTER 2019-11-27 22:30 | Outpatient (REF) | payer MEDICARE, MEDICAID, SELFPAY ==
[2019-11-27 21:07] LABS: Anion Gap 6.2 mmol/L (3-11); BUN 18 mg/dL (7-18); CO2 26.8 mmol/L (21.0-32.0); CREATININE 1.02 mg/dL (0.55-1.02); Calcium 9.3 mg/dL (8.5-10.1); Chloride 95 mmol/L (98-107); Estimated GFR 52.55 (mL/min/1.73m2); Glucose 85 mg/dL (74-106); Potassium 4.6 mmol/L (3.5-5.1); Sodium 128 mmol/L (136-145)
== END 2019-11-27 22:50 ==
LOC: LBN 22:30
PROVIDERS: PCP Nurse Practitioner Family; Visit Provider Nurse Practitioner Family
DX: I10 Essential (primary) hypertension (principal)
CPT/HCPCS: 80048

== ENCOUNTER 2019-12-14 01:20 | Outpatient (CLI) | payer MEDICARE, MEDICAID, SELFPAY ==
--- NOTE | 2019-12-14 07:43 | DI.MAMMO_ITS ---
EXAM: MG MAMMO SCREENING 60 MIN DUR CLINICAL HISTORY: breast cancer screening, PERSONAL H/O BREAST CA,Z85.3 TECHNIQUE: Mammograms were interpreted according to the usual protocol including computer analysis w [employer] CAD system, tomosynthesis and C-view imaging. COMPARISON: 2011 through 2018 FINDINGS: The breasts are composed of heterogeneously dense fibroglandular densities, Breast Density category C . Postlumpectomy changes are again noted in the upper inner quadrant right breast. No suspicious taylor s or suspicious microcalcifications are seen. No skin thickening or abnormal axillary lymph nodes are seen. There has been no significant change from prior exams. IMPRESSION: BI-RADS Category 2 - Benign Findings Yearly screening mammography is recommended. Breast Density - Category C, heterogeneously dense tissue which decreases the sensitivity of the mamm ogram. The mammogram demonstrates the patient's breast tissue is dense. Dense breast tissue is very common a nd is not abnormal but dense breast tissue can make it harder to find cancer on a mammogram. Also, de nse breast tissue may increase breast cancer risk. This information about the result of the mammogram report was provided to the patient to raise their awareness. Use this report when you speak with the patient about their risks for breast cancer, which includes their family history. At that time, you may recommend additional screening tests (Ultrasound or MRI) as they might be useful based on their r isk. A negative radiographic report should not delay biopsy if a dominant or clinically suspicious mass is present. Up to ten percent of cancers are not identified on mammography. A negative report may reinforce clinical impression. Adenosis and dense breasts may obscure an underlying neoplasm. False positive reports average 6 to 10%.
== END 2019-12-14 01:40 ==
PROVIDERS: PCP Nurse Practitioner Family; Visit Provider Nurse Practitioner Family
DX: Z85.3 Personal history of malignant neoplasm of breast (principal); R92.2 Inconclusive mammogram
CPT/HCPCS: 77063; 77067

== ENCOUNTER 2019-12-14 03:16 | Outpatient (CLI) | payer MEDICARE, MEDICAID, SELFPAY ==
[2019-12-14 12:34] LABS: Anion Gap 4.5 mmol/L (3-11); BUN 20 mg/dL (7-18); CO2 30.5 mmol/L (21.0-32.0); CREATININE 0.77 mg/dL (0.55-1.02); Calcium 9.2 mg/dL (8.5-10.1); Chloride 99 mmol/L (98-107); Glucose 81 mg/dL (74-106); Potassium 5.1 mmol/L (3.5-5.1); Sodium 134 mmol/L (136-145)
== END 2019-12-14 03:36 ==
PROVIDERS: PCP Nurse Practitioner Family; Visit Provider Nurse Practitioner Family
DX: E87.1 Hypo-osmolality and hyponatremia (principal)
CPT/HCPCS: 36415; 80048

== ENCOUNTER 2019-12-23 14:49 | Outpatient (CLI) | payer MEDICARE, MEDICAID, SELFPAY ==
--- NOTE | 2019-12-23 13:30 | DI.RAD_ITS ---
EXAM: XR CLAVICLE LT CLINICAL HISTORY: fu fracture TECHNIQUE: COMPARISON: CR XR CLAVICLE LT from 11/04/2019 FINDINGS: Two views were obtained and show previously described moderately displaced mid clavicular fracture, n o gross interval change in alignment of the fracture fragments in comparison with previous films of A ust . IMPRESSION: RADIATION DOSE DELIVERED: Total DLP
== END 2019-12-23 15:09 ==
PROVIDERS: PCP Nurse Practitioner Family; Referring Provider Nurse Practitioner Family; Visit Provider Student in an Organized Health Care Education/Training Program
DX: S42.022D Displaced fracture of shaft of left clavicle, subsequent encounter for fracture with routine healing; X58.XXXD Exposure to other specified factors, subsequent encounter; I10 Essential (primary) hypertension
CPT/HCPCS: 99213; 73000

== ENCOUNTER 2020-02-22 14:03 | Outpatient (CLI) | payer MEDICARE, MEDICAID, SELFPAY ==
--- NOTE | 2020-02-22 12:45 | DI.US_ITS ---
EXAM: US LOWER EXTREMITY VENOUS LT CLINICAL HISTORY: LLE swelling, r/o DVT M79.89 SOFT TISSUE DISORDER TECHNIQUE: Left lower extremity venous ultrasound performed using grayscale, color-flow, and spectra l Doppler analysis. COMPARISON: No exams were available for comparison FINDINGS: The left common femoral, femoral and popliteal veins demonstrate normal compressibility, augmentation , and color Doppler. The posterior tibial veins are patent. Incidentally noted is a fluid collection in the popliteal fossa, probably a Luciano cyst. IMPRESSION: No DVT. Mild deep edema noted in the calf. Luciano cyst noted. DATA REPOSITORY:
== END 2020-02-22 14:23 ==
PROVIDERS: PCP Nurse Practitioner Family; Visit Provider Nurse Practitioner Family
DX: M79.89 Other specified soft tissue disorders (principal); R60.0 Localized edema
CPT/HCPCS: 93971

== ENCOUNTER 2020-07-19 01:22 | Outpatient (CLI) | payer MEDICARE, MEDICAID, SELFPAY ==
--- NOTE | 2020-07-19 15:24 | DI.DEXA_ITS ---
Exam(s) XR DEXA BONE DENSITY W/WO TOI EXAM: XR DEXA BONE DENSITY W/WO TOI CLINICAL HISTORY: hx of osteoporosis, reassess,M81.0 TECHNIQUE: COMPARISON: There are priors for comparison. The most recent is 07/03/2016. FINDINGS: Lateral Spine Image: Unremarkable. No compression deformities identified. Left hip: Total T-Score: -2.0. This compares with -2.0 on the prior examination. Total Z-Score: 0.0 T- and Z-scores: Findings are consistent with osteopenia. Lumbar Spine: Total T-Score: -1.7. This compares to -1.6 on the prior examination. Total Z-Score: 0.9 T- and Z-scores: Findings are consistent with osteopenia. IMPRESSION: Osteopenia in the left hip and lumbar spine.
== END 2020-07-19 01:42 ==
PROVIDERS: PCP Nurse Practitioner Family; Visit Provider Nurse Practitioner Family
DX: M85.88 Other specified disorders of bone density and structure, other site (principal)
CPT/HCPCS: 77080

== ENCOUNTER 2020-12-16 00:54 | Outpatient (CLI) | payer MEDICARE, MEDICAID, SELFPAY ==
[2020-12-16 12:21] LABS: HCT 41.7 % (36.0-46.0); HGB 13.4 g/dL (11.2-15.7); MCH 30.4 pg (27.0-33.0); MCHC 32.1 % (32.0-36.0); MCV 94.6 fL (80-95); MPV 12.7 fL (8.0-11.0); Platelet Count 212 10^3/uL (130-400); RBC 4.41 10^6/uL (3.93-5.22); RDW 13.2 % (11.7-14.6); WBC 5.63 10^3/uL (4.4-10.8)
[2020-12-16 13:00] LABS: Anion Gap 6.8 mmol/L (3-11); BUN 23 mg/dL (7-18); CO2 31.2 mmol/L (21.0-32.0); CREATININE 0.9 mg/dL (0.55-1.02); Calcium 9.1 mg/dL (8.5-10.1); Calculated LDL 59 mg/dL (<100); Chloride 97 mmol/L (98-107); Cholesterol 146 mg/dL (<200); Glucose 86 mg/dL (74-106); HDL Cholesterol 82 mg/dL (40-60); Sodium 135 mmol/L (136-145); Triglyceride 28 mg/dL (<150)
== END 2020-12-16 00:55 | disposition home or self-care (01) ==
LOC: LOS 00:54
PROVIDERS: Nurse Practitioner Family; PCP Nurse Practitioner Family; Visit Provider Nurse Practitioner Family
DX: I10 Essential (primary) hypertension (principal); I25.10 Atherosclerotic heart disease of native coronary artery without angina pectoris
CPT/HCPCS: 36415; 80048; 80061; 85027

== ENCOUNTER 2021-01-02 01:51 | Outpatient (CLI) | payer MEDICARE, MEDICAID, SELFPAY ==
--- NOTE | 2021-01-02 06:30 | DI.MAMMO_ITS ---
Exam(s) MG MAMMO SCREENING 60 MIN DUR EXAM: MG MAMMO SCREENING 60 MIN DUR CLINICAL HISTORY: breast cancer screening,PERSONAL H/O BREAST CA,Z85.3,Z12.39. TECHNIQUE: Bilateral full field digital CC and MLO mammographic images were obtained with 3D tomosyn thesis and utilizing computer aided detection (CAD). COMPARISON: Prior mammograms dating back to 2011, the most recent being November 2019 . FINDINGS: The fibroglandular tissue pattern is again noted to be moderately dense. Stable appearance of the right breast lumpectomy site including scarring and dystrophic calcification in this region. There are no new spiculated masses nor new malignant appearing microcalcification groups. No new architectural distortion IMPRESSION: No radiographic evidence of malignancy. Stable benign findings. BI-RADS Category 2 - Benign Findings Breast Density - Category C - Heterogeneously dense Breast density Category C or D implies that the patient has dense breast tissue. Dense breast tissue can make it harder to find cancer on a mammogram. Dense breast tissue is also associated with an incr eased risk of breast cancer. This information about the result of the mammogram report was provided to the patient to raise their awareness. Use this report when you speak with the patient about their risks for breast cancer, which includes their family history. At that time, you may recommend additional screening tests (Ultrasoun d or MRI) as these tests may add significant information. A negative radiographic report should not delay biopsy if a dominant or clinically suspicious mass is present. Up to ten percent of cancers are not identified on mammography. A negative report may reinforce clinical impression. Adenosis and dense breasts may obscure an underlying neoplasm. False positive reports average 6 to 10%. Patient will receive a letter notifying them of these results.
== END 2021-01-02 02:11 ==
PROVIDERS: PCP Nurse Practitioner Family; Visit Provider Nurse Practitioner Family
DX: Z12.31 Encounter for screening mammogram for malignant neoplasm of breast (principal); Z85.3 Personal history of malignant neoplasm of breast; R92.8 Other abnormal and inconclusive findings on diagnostic imaging of breast
CPT/HCPCS: 77063; 77067

== ENCOUNTER 2021-03-23 02:25 | Outpatient (CLI) | payer MEDICARE, MEDICAID, SELFPAY ==
--- NOTE | 2021-03-23 07:00 | DI.US_ITS ---
Exam(s) US LOWER EXTREMITY VENOUS LT EXAM: US LOWER EXTREMITY VENOUS LT CLINICAL HISTORY: Unilateral LLE swelling x 1wk, r/o DVT,M79.89 TECHNIQUE: Left lower extremity venous ultrasound performed using grayscale, color-flow, and spectra l Doppler analysis. COMPARISON: US US LOWER EXTREMITY VENOUS LT from 02/22/2020 FINDINGS: The left common femoral, femoral and popliteal veins demonstrate normal compressibility, augmentation , and color Doppler. The posterior tibial veins are patent. The saphenofemoral junction is unremarka ble. There is no evidence of a Luciano cyst. The soft tissues are unremarkable. IMPRESSION: No DVT. DATA REPOSITORY:
== END 2021-03-23 02:45 ==
PROVIDERS: PCP Nurse Practitioner Family; Visit Provider Nurse Practitioner Family
DX: M79.89 Other specified soft tissue disorders (principal)
CPT/HCPCS: 93971

== ENCOUNTER 2021-08-10 03:19 | Outpatient (CLI) | payer MEDICARE, MEDICAID, SELFPAY ==
[2021-08-10 13:46] LABS: Anion Gap 4.4 mmol/L (3-11); BUN 28 mg/dL (7-18); CO2 30.6 mmol/L (21.0-32.0); CREATININE 1.1 mg/dL (0.55-1.02); Calcium 9.1 mg/dL (8.5-10.1); Chloride 103 mmol/L (98-107); Estimated GFR 48.04 (mL/min/1.73m2); Glucose 83 mg/dL (74-106); Sodium 138 mmol/L (136-145); TSH (W/Ref FT4) 1.69 uIU/mL (0.36-3.74)
== END 2021-08-10 03:20 | disposition home or self-care (01) ==
LOC: LOS 03:19
PROVIDERS: PCP Nurse Practitioner Family; Visit Provider Family Medicine
DX: E03.9 Hypothyroidism, unspecified (principal); F32.9 Major depressive disorder, single episode, unspecified; I10 Essential (primary) hypertension
CPT/HCPCS: 36415; 80048; 84443

== ENCOUNTER → 2022-01-03 01:35 | Outpatient (CLI) | payer MEDICARE, MEDICAID, SELFPAY ==
--- NOTE | 2022-01-03 07:15 | DI.MAMMO_ITS ---
Exam(s) MG MAMMO SCREENING 60 MIN DUR EXAM: MG MAMMO SCREENING 60 MIN DUR CLINICAL HISTORY: breast cancer screening, personal h/o breast ca,z85.3. TECHNIQUE: Bilateral full field digital CC and MLO mammographic images were obtained with 3D tomosyn thesis and utilizing computer aided detection (CAD). COMPARISON: Prior mammograms were reviewed, the most recent being . FINDINGS: There has been no significant change in the appearance and distribution of the fibroglandular tissue. Right breast lumpectomy site remains stable in appearance. There are no new spiculated masses nor new malignant appearing microcalcification groups. No new skin thickening. IMPRESSION: No radiographic evidence of malignancy. Continued stable appearance of the right breast lumpectomy s ite. BI-RADS Category 2 - Benign Findings Breast Density - Category C - Heterogeneously dense Breast density Category C or D implies that the patient has dense breast tissue. Dense breast tissue can make it harder to find cancer on a mammogram. Dense breast tissue is also associated with an incr eased risk of breast cancer. This information about the result of the mammogram report was provided to the patient to raise their awareness. Use this report when you speak with the patient about their risks for breast cancer, which includes their family history. At that time, you may recommend additional screening tests (Ultrasoun d or MRI) as these tests may add significant information. A negative radiographic report should not delay biopsy if a dominant or clinically suspicious mass is present. Up to ten percent of cancers are not identified on mammography. A negative report may reinforce clinical impression. Adenosis and dense breasts may obscure an underlying neoplasm. False positive reports average 6 to 10%. Patient will receive a letter notifying them of these results.
== END ==
PROVIDERS: PCP Nurse Practitioner Family; Visit Provider Family Medicine
DX: Z85.3 Personal history of malignant neoplasm of breast (principal); Z12.31 Encounter for screening mammogram for malignant neoplasm of breast; R92.8 Other abnormal and inconclusive findings on diagnostic imaging of breast
CPT/HCPCS: 77063; 77067

== ENCOUNTER 2022-08-03 01:29 | Outpatient (CLI) | payer MEDICARE, MEDICAID, SELFPAY ==
--- NOTE | 2022-08-03 08:15 | DI.RAD_ITS ---
Exam(s) XR KNEE RT 3V AP,LAT,ANUJ EXAM: XR KNEE RT 3V AP,LAT,ANUJ CLINICAL HISTORY: Right knee pain and swelling for 3 w; no trauma,m25.561. TECHNIQUE: 2D digital imaging was performed of the right knee. Four views obtained. AP, lateral and PA tunnel views were obtained. COMPARISON: There are no priors for comparison. FINDINGS: BONES: No acute fracture is present. No bony destructive lesion is seen. There is an enthesophyte at the superior patella. JOINTS: The knee is normally aligned. No joint effusion is seen. There is moderate narrowing of the m edial femoral tibial joint. SOFT TISSUE: There is swelling of the soft tissues anterior to the patella. Atherosclerosis is prese nt. IMPRESSION: 1. Soft tissue swelling anterior to the patella. This may represent appear patellar bursitis. Soft tissue mass or hematoma cannot be excluded. Please correlate clinically. 2. Mild narrowing of the medial femoral tibial joint. 3. No joint effusion. DATA REPOSITORY: RADIATION DOSE DELIVERED:
== END 2022-08-03 01:49 ==
LOC: DI 01:29
PROVIDERS: PCP Nurse Practitioner Family; Visit Provider Nurse Practitioner Family
DX: M25.561 Pain in right knee (principal); R93.6 Abnormal findings on diagnostic imaging of limbs
CPT/HCPCS: 73562

== ENCOUNTER 2022-09-28 01:39 | Outpatient (CLI) | payer MEDICARE, MEDICAID, SELFPAY ==
[2022-09-28 12:44] LABS: Anion Gap 8.1 mmol/L (3-11); BUN 26 mg/dL (7-18); CO2 28.9 mmol/L (21.0-32.0); Calcium 9.1 mg/dL (8.5-10.1); Chloride 103 mmol/L (98-107); Estimated GFR 57.31 (mL/min/1.73m2); Glucose 85 mg/dL (74-106); Potassium 4.5 mmol/L (3.5-5.1); Sodium 140 mmol/L (136-145)
== END 2022-09-28 01:40 | disposition home or self-care (01) ==
LOC: LOS 01:39
PROVIDERS: PCP Nurse Practitioner Family; Visit Provider Nurse Practitioner Family
DX: I10 Essential (primary) hypertension (principal)
CPT/HCPCS: 36415; 80048

== ENCOUNTER → 2023-01-10 02:29 | Outpatient (CLI) | payer MEDICARE, MEDICAID, SELFPAY ==
--- NOTE | 2023-01-10 11:30 | DI.MAMMO_ITS ---
Exam(s) MG MAMMO SCREENING 60 MIN DUR EXAM: MG MAMMO SCREENING 60 MIN DUR CLINICAL HISTORY: breast cancer screening,H/O RT BREAST CA,Z85.3,Z12.39 TECHNIQUE: Mammograms were interpreted according to the usual protocol including computer analysis w [employer] CAD system, tomosynthesis and C-view imaging. COMPARISON: 2013 through 2021 FINDINGS: The breasts are composed of heterogeneously dense fibroglandular densities, Breast Density category C . No suspicious masses or suspicious microcalcifications are seen. Postlumpectomy changes are again no rhett the right breast. Stable benign calcifications in the right breast. No skin thickening or abnormal axillary lymph nodes are seen. There has been no significant change from prior exams. IMPRESSION: BI-RADS Category 2-Benign Findings Yearly screening mammography is recommended. Breast Density Category C, heterogeneously Dense. The mammogram demonstrates the patient's breast tissue is dense. Dense breast tissue is very common a nd is not abnormal but dense breast tissue can make it harder to find cancer on a mammogram. Also, de nse breast tissue may increase breast cancer risk. This information about the result of the mammogram report was provided to the patient to raise their awareness. Use this report when you speak with the patient about their risks for breast cancer, which includes their family history. At that time, you may recommend additional screening tests (Ultrasound or MRI) as they might be useful based on their r isk. A negative radiographic report should not delay biopsy if a dominant or clinically suspicious mass is present. Up to ten percent of cancers are not identified on mammography. A negative report may reinforce clinical impression. Adenosis and dense breasts may obscure an underlying neoplasm. False positive reports average 6 to 10%.
== END ==
PROVIDERS: PCP Nurse Practitioner Family; Visit Provider Nurse Practitioner Family
DX: Z12.31 Encounter for screening mammogram for malignant neoplasm of breast (principal); Z85.3 Personal history of malignant neoplasm of breast
CPT/HCPCS: 77063; 77067

== ENCOUNTER 2023-06-28 10:16 | Outpatient (CLI) | payer MEDICARE, MEDICAID, SELFPAY ==
[2023-06-28 12:13] LABS: Abs Immature Grans 0.02 10^3/uL (0.0-0.06); Absolute Basophil Count 0.04 10^3/uL (0.0-0.2); Absolute Eosinophil Count 0.13 10^3/uL (0.0-0.7); Absolute Monocyte Count 0.58 10^3/uL (0.1-0.8); Absolute Neutrophil Count 3.47 10^3/uL (1.2-6.7); Basophils % 0.7; Eosinophils % 2.4; HCT 42.3 % (36.0-46.0); HGB 13.9 g/dL (11.2-15.7); Immature Grans % 0.4; Lymphocytes % 20.6; MCHC 32.9 % (32.0-36.0); MCV 94 fL (80-95); MPV 12.7 fL (8.0-11.0); Monocytes % 10.9; Platelet Count 192 10^3/uL (130-400); RBC 4.48 10^6/uL (3.93-5.22); RDW-SD 45.1 fL; WBC 5.34 10^3/uL (4.4-10.8)
[2023-06-28 12:37] LABS: ALT 31 U/L (14-59); AST 29 U/L (15-37); Albumin 3.9 g/dL (3.4-5.0); Alkaline Phosphatase 69 U/L (46-116); Anion Gap 7.7 mmol/L (3-11); BUN 23 mg/dL (7-18); Bilirubin, Total 0.8 mg/dL (0.2-1.0); CO2 28.3 mmol/L (21.0-32.0); Calcium 9.5 mg/dL (8.5-10.1); Calculated LDL 61 mg/dL (<100); Chloride 104 mmol/L (98-107); Cholesterol 150 mg/dL (<200); Estimated GFR 56.95 (mL/min/1.73m2); Glucose 92 mg/dL (74-106); HDL Cholesterol 84 mg/dL (40-60); Potassium 5.1 mmol/L (3.5-5.1); Sodium 140 mmol/L (136-145); Total Protein 7.5 g/dL (6.4-8.2); Triglyceride 29 mg/dL (<150)
[2023-06-28 13:07] LABS: Hemoglobin A1C 6.1 % (<5.7)
[2023-06-28 19:49] LABS: Hepatitis C Ab w Rflx HCV PCR Negative (Negative)
== END 2023-06-28 10:17 | disposition home or self-care (01) ==
LOC: LOS 10:16
PROVIDERS: PCP Nurse Practitioner Family; Referring Provider Nurse Practitioner Family; Visit Provider Nurse Practitioner Family
DX: Z00.00 Encounter for general adult medical examination without abnormal findings (principal); I25.10 Atherosclerotic heart disease of native coronary artery without angina pectoris; R73.01 Impaired fasting glucose
CPT/HCPCS: 36415; 80053; 80061; 86803; 83036; 85025

== ENCOUNTER → 2023-07-25 00:29 | Outpatient (CLI) | payer MEDICARE, MEDICAID, SELFPAY ==
--- NOTE | 2023-07-25 12:49 | DI.DEXA_ITS ---
Exam(s) XR DEXA BONE DENSITY W/WO TOI EXAM: XR DEXA BONE DENSITY W/WO TOI CLINICAL HISTORY: osteopenia 2020,screening for osteoporosis in postmenopausal woman,z78.0 TECHNIQUE: COMPARISON: CR XR DEXA BONE DENSITY W/WO TOI from 07/19/2020 FINDINGS: Lateral Spine Image: Unremarkable. No compression deformities identified. Left hip: Total T-Score: -2.3. This compares to -2.0 on the prior examination. Total Z-Score: -0.2 T- and Z-scores: Findings are consistent with osteopenia. There is osteoporosis in the femoral neck with a T-score of -3.4. Lumbar Spine: Total T-Score: -2.0. This compares to -1.8 on the prior examination. Total Z-Score: 0.8 T- and Z-scores: Findings are consistent with osteopenia. There are findings of osteoporosis in the L1 and L2 vertebral bodies with T-scores of -2.5 and -2.6 respectively. Left forearm: Osteoporosis is seen with a total T-score of -2.7 and a Z-score of 0.4. IMPRESSION: There is evidence of osteoporosis in the femoral neck and the L1 and L2 vertebral bodies.
== END ==
PROVIDERS: PCP Nurse Practitioner Family; Visit Provider Nurse Practitioner Family
DX: Z13.820 Encounter for screening for osteoporosis (principal); Z78.0 Asymptomatic menopausal state; M81.0 Age-related osteoporosis without current pathological fracture
CPT/HCPCS: 77080

== ENCOUNTER 2023-07-25 10:37 | Outpatient (CLI) | payer MEDICARE, MEDICAID, SELFPAY ==
--- NOTE | 2023-07-25 10:30 | RT.EKG_ITS ---
APPROVED REPORT Exam: Resting ECG Reason for Exam: CAD Patient Location: O HR:64 bpm ECG Measurements Heart Rate 64 AXIS DE 198 P 53 QRSd 91 QRS 58 QT 411 T 59 QTc 424 Conclusion Sinus rhythm...normal P axis, V-rate 50- 99 Normal Electrocardiogram
== END 2023-07-25 10:38 | disposition home or self-care (01) ==
LOC: DI.CARD 10:37
PROVIDERS: PCP Nurse Practitioner Family; Visit Provider Internal Medicine Cardiovascular Disease
DX: I25.10 Atherosclerotic heart disease of native coronary artery without angina pectoris (principal)
CPT/HCPCS: 93010

== ENCOUNTER 2024-01-24 00:15 | Outpatient (CLI) | payer MEDICARE, MEDICAID, SELFPAY ==
--- OUTSIDE RECORDS SUMMARY | 2024-01-24 00:20 | XMS_ITS | Encounter Summary ---
Author Organization Count Includes [facility] [place] [address] Care Team Providers Care Direct Sales Consultant Name Role Phone Nelia Bone Jodie DENNEY Primary Care Provider [phone]- [phone] Encounter Details Date Type Department Care Team (Late st Contact Info) Description 10/25/2022 10:30 AM EDT Tech Visit [place] [address] Britt Girard Peripheral vascular disease, unspecified Social History Tobacco Use Types Packs/Day Years Used Date Smoking Tobacco: Never Alcohol Use Standard Drinks/Week Comments Not Currently 0 (1 standard drink = 0.6 oz pur e alcohol) Sex and Gender Information Value Date Recorded Sex Assigned at Not on file Gender Identity Not on file Sexual Orientation Not on file documented as of this encounter Plan of Treatment Not on file documented as of this encounter Procedures Procedure Name Priority Date/Time Associated Diagnosis Comments RAYMUNDO, LEGS, MULTIPLE LEVELS STAT 10/25/2022 10:35 AM EDT Peripheral vascular disease, unspecified documented in this encounter Results * RAYMUNDO, legs, multiple levels (10/25/2022 10:35 AM EDT) VB Text Report Department: Vascular Surgery Lab Patient: [id number] (BINA WHITE) CPT: 35135 Referring Physician: LIZ THOMAS ?? Phone: Indications: Suspect PVD ??? Perfusion Diabetes mellitus: No Findings: Right ?Pressure (mm Hg) ?? RAYMUNDO ??Waveform ?? Brachial Artery ?128 ? Common Femoral Artery ?Triphasic ?? Popliteal Artery ? Triphasic ?? Dorsalis Pedis (Ankle) Artery ?134 ? 1.05 ??Triphasic ?? Posterior Tibial (Ankle) Artery ??141 ? 1.10 ??Triphasic ?? Left ? Pressure (mm Hg) ?? RAYMUNDO ??Waveform ?? Brachial Artery ?127 ? Common Femoral Artery ?Triphasic ?? Popliteal Artery ? Triphasic ?? Dorsalis Pedis (Ankle) Artery ?131 ? 1.02 ??Triphasic ?? Posterior Tibial (Ankle) Artery ??129 ? 1.01 ??Triphasic ?? Interpretation: RIGHT: No significant lower extremity arterial occlusive disease identifiable at rest. Normal ankle/brachial pressure ratios and ankle Doppler waveforms. LEFT: No significant lower extremity arterial occlusive disease identifiable at rest. Normal ankle/brachial pressure ratios and ankle Doppler waveforms. Comparison: ??No previous study in our vascular lab database for comparison. Electronically Signed by: CAMRON MCDONALD on 2022-10-25 12:21:53 PM [facility] VB Text Report End of Report [facility] 10/25/2022 10:3 5 AM EDT Liz Adjfabu TONGUE PRESSER VASCULAR ORDERABLES [facility] documented in this encounter Visit Diagnoses Diagnosis Peripheral vascular disease, unspecified documented in this encounter Care Teams Direct Sales Consultant Relationship Specialty Start Date End Date Nelia Bone APRN [address] [place] [address] PCP - General Urology 10/25/22 documented as of this encounter
--- OUTSIDE RECORDS SUMMARY | 2024-01-24 00:20 | XMS_ITS | Encounter Summary ---
Author Organization [facility] Address [address] [place] [address] Care Team Providers Care Custodial Aide Name Role Phone Unavailable Primary Care Provider Unavailabl e Encounter Details Date Type Department Care Team (Late st Contact Info) Description 02/03/2009 Orders Only [facility] Laboratory Services - [facility] [address], [place] [address] Laura Castillo MD [address] [place] [address] Social History Tobacco Use Types Packs/Day Years Used Date Smoking Tobacco: Never Assessed Sex and Gender Information Value Date Recorded Sex Assigned at Not on file Gender Identity Not on file Sexual Orientation Not on file documented as of this encounter Plan of Treatment Not on file documented as of this encounter Procedures Procedure Name Priority Date/Time Associated Diagnosis Comments HPV DETECTION, HIGH RISK TYPES Routine 02/03/2009 13:59 EST CYTOPATHOLOGY Routine 02/03/2009 0:00 EST documented in this encounter Results * HUMAN PAPILLOMA VIRUS DNA TEST (02/03/2009 13:59 EST) Specimen Description Cervix, ThinPrep vial [facility] Result Negative for HPV types 16, 18, 31, 33, 35, 39, 45, 51, 52, 56, 58, 59, and 68. [facility] Report Status Final 02/16/2009 [facility] 02/03/2009 13:5 9 EST 02/11/2009 13:59 EST Laura Castillo MD MICROBIOLOGY - GENER AL ORDERABLES [facility] [address] [address] * CYTOPATHOLOGY (02/03/2009 0:00 EST) Pathology Report: CYTOPATHOLOGY REPORT ? Reports generated via electronic interface contain original data; ? however they are lacking the format of the original report. ? Caution should be taken when reading/interpreti ng unformatted reports. ? Name: ? KATLYN WHITE ? Accession #: ? [id number] ? : ? 1940 (Age: 68) ??F ?Collect Date: ? 02/03/2009 ? Location: ? [facility] ? Receive Date: ? 02/04/2009 ? Provider: ?LAURA S LABARTHE MD ? Copy to: ? Specimen/Source: ?Pap Test, Cervix/Endocervix, ThinPrep Imaging System ? with manual evaluation ? 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 Other: ? HPVDX - HPV testing requested regardless of diagnosis on current ThinPrep Pap ?? test. ? SPECIMEN ADEQUACY ? Satisfactory for Evaluation ? - assessment of transformation zone component not applicable ( e.g. atrophy, ? vaginal sample, hysterectomy) ? GENERAL CATEGORIZATION ? Negative for Intraepithelial Lesion or Malignancy ? Document reviewed and electronically signed by: ? Liv Nobles. Colasacco, SCT(ASCP) ? Report Date: ??02/11/2009 09:39 ? End of Report ? [facility] 02/03/2009 02/04/2009 Laura Castillo MD PATHOLOGY ORDERABLES [facility] [address] [place] [address] documented in this encounter Visit Diagnoses Not on filedocumented in this encounter
--- OUTSIDE RECORDS SUMMARY | 2024-01-24 00:20 | XMS_ITS | Encounter Summary ---
Author Organization [facility] Address [address] [place] [address] Care Team Providers Care [employer] Membership Advisors Name Role Phone Unknown, Provider Primary Care Provider Unava ilable Encounter Details Date Type Department Care Team (Late st Contact Info) Description 09/25/2004 Results Only [facility] [address] [place] [address] Brian Gross MD [address] [place] [id number] Social History Tobacco Use Types Packs/Day Years Used Date Smoking Tobacco: Never Assessed Sex and Gender Information Value Date Recorded Sex Assigned at Not on file Gender Identity Not on file Sexual Orientation Not on file documented as of this encounter Plan of Treatment Not on file documented as of this encounter Procedures Procedure Name Priority Date/Time Associated Diagnosis Comments SURGICAL PATHOLOGY Routine 09/25/2004 0:00 EDT documented in this encounter Results * SURGICAL PATHOLOGY (09/25/2004 0:00 EDT) Pathology Report: SURGICAL PATHOLOGY REPORT Reports generated via electronic interface contain original data; however they are lacking the format of the original report. Caution should be taken when reading/interpreti ng unformatted reports. Name: ? KATLYN WHITE ? Accession #: ? [id number] ? : ? 1940 (Age: 63) ??F ? Collect Date: ? 09/25/2004 ? Location: ? [facility] ? Receive Date: ? 09/25/2004 ? Provider: BRIAN GROSS MD Copy to: IZABELA MCNEIL MD ? Final Pathologic Diagnosis: A. ?Skin of eyebrow region, left, inferior margin, excision: 1. ?Melanocytic nevus, intradermal type. ? - Nevus extends to margin of excision specimen. B. ?Skin of eyebrow region, left, medial margin biopsy: 1. ?Melanocytic nevus, intradermal type. ? - Nevus extends to edges of biopsy specimen. Microscopic Description: ? Both specimens show similar features. Sections are of a papule with mild epidermal hyperplasia and hyperkeratosis. ??There is a proliferation of melanocytes within the dermis. ??The proliferation consists of nests, cords, and strands that diminish in size with descent into the dermis. ??The melanocytes are slightly enlarged but generally have round-oval nuclei and a moderate amount of cytoplasm. ??The melanocytes show exchange teller maturation. ??(Dr. Lima)/[facility] Document reviewed and electronically signed by: STACI LIMA MD Report ??Date: 09/27/2004 15:29 By the signature above, the attending physician certifies that he/she has personally conducted a gross and/or microscopic examination of the described specimens and rendered or confirmed the above diagnosis. Specimen(s) Received: A. ?Inferior margin L brow B. ?Medial margin L brow Clinical History: ? Skin lesions left brow, present many yrs Gross Description: ? Received in formalin labelled White and left brow skin lesion inferior margin is an unoriented ellipse of skin which measures 1.5 x 1.1 cm and is excised to a depth of 0.5 cm. ??There is a centrally located, white-barillas, hairbearing papule which measures 1.0 x 1.0 x 0.3 cm. ??The specimen is inked, serially sectioned, and is entirely submitted as follows: BLOCK DREW A1,A2 ?Central sections A3 ?Distal tips reverse en face Received in formalin labelled White and skin lesion left brow medial margin is a 0.7 x 0.5 x 0.5 cm shave biopsy of a white-barillas, hairbearing papule. ??The specimen is bisected and submitted as (B). ??(Lauren Patton)/[facility] End of Report [facility] 09/25/2004 09/25/2004 9:0 2 EDT Brian Gross MD PATHOLOGY ORDERABLE S [facility] [address] [place] [address] documented in this encounter Visit Diagnoses Not on filedocumented in this encounter Care Teams [employer] Membership Advisors Relationship Specialty Start Date End Date Unknown, Provider, PCP - General 05/20/09 documented as of this encounter
--- OUTSIDE RECORDS SUMMARY | 2024-01-24 00:20 | XMS_ITS | Clinical Summary ---
Author Organization [facility], [facility] [place] [address] Care Team Providers Care Manager Urology Name Role Phone Nelia Bone JUMANA Primary Care Provider +1- [phone] Allergies Active Allergy Reactions Criticality Noted Date Comments Codeine Phosphate Polymyxin B Sulfate Medications Medication Sig Dispensed Refills Start Date End Date Status CIS Free Text Med - Multiple Vitamin 04/28/2010 Active Calcium 500 mg Tab Take 600 mg by mouth 2 times daily. Active citalopram (CELEXA) 10 mg tablet Take 10 mg by mouth daily. Active omeprazole (PRILOSEC) 20 mg Capsule, Delayed Release(E.C.) Take 20 mg by mouth daily. Active rOPINIRole (REQUIP) 0.5 mg Tablet Take 0.5 mg by mouth nightly. Active atorvastatin (Lipitor) 40 mg Tablet Take 1 tablet by mouth every evening. 90 tablet 3 11/18/2019 Active lisinopriL (Prinivil;Zestril) 5 mg Tablet Take 1 tablet by mouth daily. 30 tablet 3 11/18/2019 Active metoprolol tartrate (Lopressor) 25 mg Tablet Take 1 tablet by mouth 2 times daily. 180 tablet 3 11/18/2019 Active aspirin EC 81 mg Tablet, Delayed Release (E.C.) Take 1 tablet by mouth daily. 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 hematoma surgical site Radiation therapy: 6100 cGy in 33 FRACTIONS completed 09/05/2009 Immunizations Name Administration Dates Next Due Influenza Vaccine, Whole 01/10/2006,01/23/2005 Family History Medical History Relation Comments Heart Disease Father Diabetes Mother Heart Disease Mother Hyperlipidemia Sister Relation Status Comments Father Mother Sister Social History Tobacco Use Types Packs/Day Years Used Date Smoking Tobacco: Never Alcohol Use Standard Drinks/Week Comments Not Currently 0 (1 standard drink = 0.6 oz pur e alcohol) Sex and Gender Information Value Date Recorded Sex Assigned at Not on file Gender Identity Not on file Sexual Orientation Not on file Last Filed Vital Signs Vital Sign Reading Time Taken Comments Blood Pressure 112/61 11/18/2019 6:28 PM EDT Pulse 70 11/18/2019 6:28 PM EDT Temperature 36.4 ??C (97.5 ??F) 11/18/2019 3:37 PM ED T Respiratory Rate 13 11/18/2019 3:37 PM EDT Oxygen Saturation 100% 11/18/2019 12: 45 PM EDT Inhaled Oxygen Concentration - - Weight 50.7 kg (111 lb 12.4 oz) 11/18/2019 5:00 AM EDT Height 147.3 cm (4' 10) 11/16/2019 5:37 PM EDT Body Mass Index 23.36 11/16/2019 5:37 PM EDT Plan of Treatment Health Maintenance Due Date Last Done Comments Tetanus/Diphtheria/Pertussis Vaccines (1 - Tdap) 1961 Zoster vaccine (1 of 2) 1992 Advance Directive 1997 Bone Density Scan 11/02/2007 Pneumoccocal Vaccine: 65+ (1 of 1 - PCV) 11/02/2007 Covid-19 Vaccine (1 - season) 2023 Influenza (Flu) vaccine (1 o f 1 - Influenza standard series) 11/17/2023 01/10/2006, 01/23/2005 Advance Directives * Attempt Cardiopulmonary Resuscitation - Inpatient (Latest Code Status on File) Date Activated Date Inactivated Comments 11/16/2019 7:07 PM 11/18/2019 9:07 PM Question Answer Comments Code Status decision made by: Patient Care Teams Manager Urology Relationship Specialty Start Date End Date Nelia Bone APRN [address] [place] [address] PCP - General Urology 10/25/22
--- OUTSIDE RECORDS SUMMARY | 2024-01-24 00:20 | XMS_ITS | Encounter Summary ---
Author Organization [place] [address] Care Team Providers Care Produce Department Manager Name Role Phone RussellmaryNelia APRN Primary Care Provider +1- [phone] Reason for Referral * Diagnostic Test (STAT) - Closed Specialty Diagnoses / Procedures Referred By Sima t Referred To Contact Diagnoses Peripheral vascular disease, unspecified Procedures RAYMUNDO, legs, multiple levels Maria R Thomas APRN [address] [place] [address] [facility] [address] [address] Referral ID Status Reason Start Date Expiration Date V isits Requested Visits Authorized [id number] Closed Specialty Service Requested 10/22/2022 10/22/2023 1 1 Encounter Details Date Type Department Care Team (Late st Contact Info) Description 10/22/2022 Transcribe Orders eDH Incoming Referrals [phone] Maria R Thomas APRN [address] [place], [place] [id number] Peripheral vascular disease, unspecified Social History Tobacco [...] on file documented as of this encounter Results * RAYMUNDO, legs, multiple levels (10/25/2022 10:35 AM EDT) VB Text Report Department: Vascular Surgery Lab Patient: [id number] (BINA WHITE) CPT: 43425 Referring Physician: MARI AR THOMAS ?? Phone: Indications: Suspect PVD ??? [...] Report [facility] 10/25/2022 10:3 5 AM EDT Maria R Adjovu TOOL MAKER VASCULAR ORDERABLES Performing Organization Address City/State/[facility] Co de Phone Number [facility] documented in this encounter Visit Diagnoses Diagnosis Peripheral vascular disease, unspecified documented in this encounter Care Teams Produce Department Manager Relationship Specialty Start Date End Date Nelia Bone APRN PCP - General 08/05/14 10/24/22 documented as of this encounter
--- OUTSIDE RECORDS SUMMARY | 2024-01-24 00:20 | XMS_ITS | Encounter Summary ---
Author Organization [facility] Address [address] [place] [address] Care Team Providers Care Gauger Delivery Name Role Phone Unknown, Provider Primary Care Provider Unava ilable Encounter Details Date Type Department Care Team (Late st Contact Info) Description 06/28/2023 Lab Requisition [facility] Pathology & Laboratory Medicine - [facility] [address], [place] [address] Outr Resulting Lab, Provider Social History Tobacco Use Types Packs/Day Years Used Date Smoking Tobacco: Never Assessed Sex and Gender Information Value Date Recorded Sex Assigned at Not on file Gender Identity Not on file Sexual Orientation Not on file documented as of this encounter Plan of Treatment Not on file documented as of this encounter Procedures Procedure Name Priority Date/Time Associated Diagnosis Comments HEPATITIS C AB W REFLEX TO HCV RNA BY PCR Routine 06/28/2023 10:23 EDT documented in this encounter Results * HEPATITIS C AB W REFLEX TO HCV RNA BY PCR (06/28/2023 10:23 EDT) Hep C Antibody Negative Negative 06/28/2023 19:45 EDT [facility] Blood VENOUS BLOOD / Unknown 06/28/2023 10:23 EDT 06/28/2023 17:11 EDT Provider Outr Resulting Lab CHEMISTRY & BLOOD GAS ORDERABLES [facility] [address] [place], [place] [address] documented in this encounter Visit Diagnoses Not on filedocumented in this encounter Care Teams Gauger Delivery Relationship Specialty Start Date End Date Unknown, Provider, PCP - General 05/20/09 documented as of this encounter
--- OUTSIDE RECORDS SUMMARY | 2024-01-24 00:20 | XMS_ITS | Clinical Summary ---
Author Organization [facility] Address [address] [place] [address] Care Team Providers Care Top Lift Compressor Name Role Phone Unknown, Provider Primary Care Provider Unava ilable Social History Tobacco Use Types Packs/Day Years Used Date Smoking Tobacco: Never Assessed Sex and Gender Information Value Date Recorded Sex Assigned at Not on file Gender Identity Not on file Sexual Orientation Not on file Plan of Treatment Health Maintenance Due Date Last Done Comments RSV Immunization ( o r 60+ Years) (1 - 1-dose 60+ series) 2002 Fall Risk Screening 11/02/2007 COVID-19 Vaccine (2022- season) 2022 Care Teams Top Lift Compressor Relationship Specialty Start Date End Date Unknown, Provider, PCP - General 05/20/09
--- OUTSIDE RECORDS SUMMARY | 2024-01-24 00:20 | XMS_ITS | Encounter Summary ---
Author Organization [facility] [place] [address] [place] [address] Care Team Providers Care Domestic Travel Consultant Name Role Phone Nelia Bone APPLICATION SUPPORT INTERN Primary Care Provider [phone]- [phone] Encounter Details Date Type Department Care Team (Latest Contact Info) Description 10/25/2022 Travel Social History Tobacco Use Types Packs/Day Years [...] on file documented as of this encounter Visit Diagnoses Not on filedocumented in this encounter Care Teams Domestic Travel Consultant Relationship Specialty Start Date End Date Nelia Bone APRN [address] [place] [address] PCP - General Urology 10/25/22 documented as of this encounter
--- OUTSIDE RECORDS SUMMARY | 2024-01-24 00:20 | XMS_ITS | Encounter Summary ---
Author Organization [facility] Address [address] [place] [address] Care Team Providers Care Corrective And Manual Arts Therapist Name Role Phone Unknown, Provider Primary Care Provider Unava ilable Encounter Details Date Type Department Care Team (Late st Contact Info) Description 05/30/2009 Results Only [facility] Laboratory Services - [facility] ([facility] [address] [place] [address] [id number] Brian Gross MD [address] [place] [address] Social History Tobacco Use Types Packs/Day Years Used Date Smoking Tobacco: Never Assessed Sex and Gender Information Value Date Recorded Sex Assigned at Not on file Gender Identity Not on file Sexual Orientation Not on file documented as of this encounter Plan of Treatment Not on file documented as of this encounter Procedures Procedure Name Priority Date/Time Associated Diagnosis Comments SURGICAL PATHOLOGY Routine 05/30/2009 0:00 EDT documented in this encounter Results * SURGICAL PATHOLOGY (05/30/2009 0:00 EDT) Pathology Report: SURGICAL PATHOLOGY REPORT ? Reports generated via electronic interface contain original data; ? however they are lacking the format of the original report. ? Caution should be taken when reading/interpreting unformatted reports. ? Name: ? WHITE, KATLYN L ? Accession #: ? [id number] ? : ? 1940 (Age: 68) ??F ? Collect Date: ? 05/30/2009 ? Location: ? [facility] ? Receive Date: ? 05/30/2009 ? Provider: BRIAN GROSS MD ? Copy to: DIOR HAN MD ? Final Pathologic Diagnosis: ? Breast, right, upper inner quadrant, re-excisional biopsy: ? 1. ?Ductal carcinoma in situ (DCIS), cribriform and solid patterns, ? 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 ??See comment. ? - Tumor location: ??Upper inner quadrant. ? - Tumor position: ??Unspecified. ? - Area of involvement by DCIS is approximately 0.1 cm. ? - DCIS involves one level out of ten levels submitted for microscopic evaluation (A12). ? - Surgical resection margins negative; DCIS present: ?- 5.5 mm from medial margin (A12). ?- Greater than 1.0 cm from remaining margins. ? 2. ?? Fibrocystic changes, including: ?- Usual ductal hyperplasia. ?- Adenosis. ?- Interlobular fibrosis. ? 3. ?? Microcalcifications associated with DCIS. ? 4. ?? Prior biopsy site identified. ? 5. ?? Skin: ??Negative for malignancy. ? Comment: ? Immunohistochemical studies for estrogen and progesterone receptors were ?? previously performed on an excisional biopsy ([id number]), which showed positivity for estrogen and progesterone receptors in greater than 90%. ??DCIS is present in a single focus measuring 0.1 cm. ??(Dr. Suarez)/greyson ? Document reviewed and electronically signed by: ? RANDEE VERDE MD ? Report ??Date: 06/02/2009 17:19 ? By the signature above, the attending physician certifies that he/she has ? personally conducted a gross and/or microscopic examination of the described ? specimens and rendered or confirmed the above diagnosis. ? Specimen(s) Received: ? Rt breast, upper inner quadrant ??long suture lateral, short suture ? superior, double suture anterior ? Clinical History: ? DCIS Rt breast ? Gross Description: ? Received fresh labelled Katlyn White and right breast mass, upper ? inner quadrant is a 57 gram fragment of fibroadipose tissue oriented as ? follows: ??long suture lateral, short suture superior, double suture anterior. ?? The specimen measures 6.4 cm superior to inferior, 4.2 cm medial to lateral, and 5.2 cm anterior to posterior. ??On the anterior surface there is a vertically ? oriented skin ellipse measuring 2.7 cm in length and 0.4 cm in diameter. ??On the inferolateral aspect of the specimen there is a 3.0 x 1.8 cm defect exposing a ?? previous biopsy cavity measuring 4.2 cm in depth. ??The specimen is inked as ? follows: ??anterior yellow, posterior black, superior blue, inferior green, ? medial red, and lateral orange. ??The specimen is serially sectioned from ? superior to inferior (levels 1-10), revealing patchy hemorrhage throughout the ?? lobulated adipose tissue. ??Previous biopsy cavity involves levels 4-10. ??There ?? is a vague barillas-brown density located 1.1 cm from the posterior margin in level 7 and there is a region of pink-barillas fibrosis adjacent to the biopsy cavity in ? level 8 measuring 0.9 cm from the posterior margin. ??No other distinct lesions ?? are identified. ??Hand Tacker sections are submitted as follows: ? BLOCK DREW ? A1 ?Level 1, superior, perpendicular section ? A2 ?Level 2, anterior medial margin, thinned ? A3 ?Level 3, anterolateral aspect ? A4 ?Level 4, superior aspect biopsy cavity ? A5 ?Level 5, medial aspect biopsy cavity, thinned ? A6 ?Level 5, posterior and lateral aspect of biopsy cavity ? A7 ?Level 6, posterior aspect resection margin ? A8 ?Level 6, lateral biopsy cavity ? A9 ?Level 6, anteromedial biopsy cavity ? A10, A11 ? Level 7, posterior aspect of resection margin ? A12 ?Level 7, posterior medial and escrow representative skin ? A13 ?Level 8, posterior, thinned ? A14, A15 ? Level 8, lateral biopsy cavity, thinned ? A16, A17 ? Level 9, posterior, thinned ? A18 ?Level 9, medial ? A19-A21 ? Level 10, inferior, escrow representative perpendicular sections from ? medial to lateral ? (Dr. Suarez)/kmm ? End of Report ? [facility] 05/30/2009 05/30/2009 17: 04 EDT Brian Gross MD PATHOLOGY ORDERABLE S [facility] [address] [place] [address] documented in this encounter Visit Diagnoses Not on filedocumented in this encounter Care Teams Corrective And Manual Arts Therapist Relationship Specialty Start Date End Date Unknown, Provider, PCP - General 05/20/09 documented as of this encounter
--- OUTSIDE RECORDS SUMMARY | 2024-01-24 00:20 | XMS_ITS | Referral Summary ---
Author Organization [facility] Address [address] [place] [address] Care Team Providers Care Quarry Equipment Operator Name Role Phone Unknown, Provider Primary Care Provider Unava ilable Social History Tobacco Use Types Packs/Day Years Used Date Smoking Tobacco: Never Assessed Sex and Gender Information Value Date Recorded Sex Assigned at Not on file Gender Identity Not on file Sexual Orientation Not on file Plan of Treatment Not on file Care Teams Quarry Equipment Operator Relationship Specialty Start Date End Date Unknown, Provider, PCP - General 05/20/09
--- OUTSIDE RECORDS SUMMARY | 2024-01-24 00:20 | XMS_ITS | Encounter Summary ---
Author Organization [facility] Address [address] [place] [address] Care Team Providers Care Chemotherapist Name Role Phone Unavailable Primary Care Provider Unavailabl e Encounter Details Date Type Department Care Team (Late st Contact Info) Description 05/18/2009 Results Only [facility] Laboratory Services - [facility] ([facility] [address] [place] [address] [id number] Brian Gross MD [address] [place] [phone] Social History Tobacco Use Types Packs/Day Years Used Date Smoking Tobacco: Never Assessed Sex and Gender Information Value Date Recorded Sex Assigned at Not on file Gender Identity Not on file Sexual Orientation Not on file documented as of this encounter Plan of Treatment Not on file documented as of this encounter Procedures Procedure Name Priority Date/Time Associated Diagnosis Comments SURGICAL PATHOLOGY Routine 05/18/2009 0:00 EST documented in this encounter Results * SURGICAL PATHOLOGY (05/18/2009 0:00 EST) Pathology Report: SURGICAL PATHOLOGY REPORT ? Reports generated via electronic interface contain original data; ? however they are lacking the format of the original report. ? Caution should be taken when reading/interpreting unformatted reports. ? Name: ? CINDY, KATLYN L ? Accession #: ? [id number] ? : ? 1940 (Age: 68) ??F ?Collect Date: ? 05/18/2009 ? Location: ? [facility] ? Receive Date: ? 05/19/2009 ? Provider: BRIAN GROSS MD ? Copy to: DIOR GRESSER MD ? Final Pathologic Diagnosis: ? Breast, right, upper inner quadrant, wire localization excisional biopsy: ?? 1. ?Breast tissue designated with wire localization needle: ? - Ductal carcinoma in situ, cribriform and solid patterns, with focal ? necrosis, intermediate (II) ?nuclear grade. ? - Tumor location: ??Upper inner quadrant. ?- Area of involvement by DCIS: ??Approximately 2.1 cm. ?- DCIS involves seven out of a total of eleven levels submitted for ? microscopic evaluation. ?- Surgical resection margins negative; DCIS present: ?- 0.2 mm from surgical resection margin. ??See comment. ? - Microcalcifications identified, associated with ductal carcinoma in situ. ? 2. ??Breast tissue designated as inferior to #1: ?- Fibrocystic changes, including: ?- Interlobular fibrosis. ?- Microcyst formation. ?- Moderate epithelial hyperplasia. ? Comment: ? The breast biopsies are submitted without orientation. ??DCIS is identified in the tissue with the localization needle and is located 0.2 mm from the inked surgical margin. ??The DCIS involves a 2.1 cm in maximum dimension area, but ? involves relatively few ducts in each of the involved sections, the largest ? confluent focus of which is 8.0 mm. ??Immunohistochemical studies for estrogen ?? and progesterone receptors have been ordered on block (A3), the results of which will be issued in a separate report. ?(Dr. Ham)/greyson ? Document reviewed and electronically signed by: ? Carlos Ham MD ? Report ??Date: 05/23/2009 16:57 ? By the signature above, the attending physician certifies that he/she has ? personally conducted a gross and/or microscopic examination of the described ? specimens and rendered or confirmed the above diagnosis. ? Specimen(s) Received: ? UIQ R breast with wire, contains Ca++, and inferior to #1 (both specimens in ? same container) ? Clinical History: ? Stipple calcs Rt breast ? Gross Description: ? Received in formalin labelled Katlyn Shirley and #1 UIQ with wire right breast mass are two separate pieces of fibrofatty tissue. ??The slightly larger piece is received with a needle localizing wire dangling within it. ??This piece weighs 12.8 grams and measures 6.0 x 3.3 x 1.5 cm. ??The second piece of ? fibrofatty tissue weighs 11.3 grams and measures 4.0 x 3.0 x 1.5 cm. ??According to the requisition slip, the piece with the needle localizing wire contains ? microcalcifications, while the second piece is inferior to the piece which ? contains the needle localizing wire; however, there is no additional orientation to the pieces of tissue. ??The external surface of the piece which contains the ?? needle localizing wire is black inked. ??The second piece of tissue which does ?? not contain the needle localizing wire is hemorrhagic on one side over an area ?? measuring 2.0 x 1.0 cm. ??This side is blue inked, while the opposite external ?? surface side is black inked. ??The piece of tissue which is received with the ? needle localizing wire is sectioned from one end to the opposite end into eleven levels revealing scant white fibrous tissue admixed with variably sized fat ? lobules. ??There are no discrete nodules. ??The second piece, representing the ? piece inferior to the tissue containing the needle localizing wire, is sectioned from one end to the opposite end into nine levels revealing scant white fibrous tissue, which is focally mildly hemorrhagic and is admixed with variably sized ?? fat lobules. ??There are no discrete nodules. ??Dr. Greg Odonnell examined the ?? specimen. ??The specimens are submitted entirely as follows: ? BLOCK DREW ? A1 ?Level 1 of needle localizing wire piece, two perpendicular sections A2 ?Level 2 of needle localizing wire piece ? A3, A4 ?Level 3 of needle localizing wire piece, bisected ? A5, A6 ?Level 4 of needle localizing wire piece, bisected ? A7, A8 ?Level 5 of needle localizing wire piece, bisected ? A9, A10 ?Level 6 of needle localizing wire piece, bisected ? A11, A12 ? Level 7 of needle localizing wire piece, bisected ? A13, A14 ? Level 8 of needle localizing wire piece, bisected ? A15 ?Level 9 of needle localizing wire piece ? A16 ?Level 10 of needle localizing wire piece ? A17 ?Level 11 of needle localizing wire [id number] ?Level 1, ? inferior piece, bisected ? A19 ?Level 2, inferior piece ? A20 ?Level 3, inferior piece ? A21, A22 ? Level 4, inferior piece, bisected ? A23 ?One-half of level 5, inferior piece, thinned ? A24 ?Remaining half of level 5, inferior piece ? A25 ?One-half of level 6, inferior piece, thinned ? A26 ?Remaining half of level 6, inferior piece ? A27 ?Level 7, inferior piece, thinned ? A28 ?Level 8, inferior piece ? A29 ?Level 9, inferior piece ? (J. Tessitore)/ljn ? ESTROGEN AND PROGESTERONE RECEPTOR IMMUNOPEROXIDASE STAINS ? Date Ordered: ? 05/24/2009 ? Status: ?? Signed Out ?Date Complete: ? 05/24/2009 ? By: ??Esthela Lopez ? Date Reported: ? 05/24/2009 ? Interpretation ? Breast, right, excisional biopsy: ? - Ductal carcinoma in situ. ? 1. ?Positive for estrogen receptors (in greater than 90% of tumor ? cells). ? 2. ?Positive for progesterone receptors (in greater than 90% of tumor ?? cells). ? Description ? Tissue submitted: Paraffin embedded tissue block labelled [id number] (A3) ? from [facility] ? An immunohistochemical assay for estrogen receptors (ER1D5, Dako) and ? progesterone receptors ([id number], Dako) has been performed on this specimen. ? Standard heat activated antigen retrieval protocol (EDTA buffer at pH 8.0 and 98 C x 30 minutes) was employed followed by automated immunostaining. Intranuclear receptor complexes were visualized on tissue sections using an HRP polymer ? immunohistochemical technique. ? Results are reported as negative (no nuclear staining) or positive with the proportion of positive cells noted. ??Estrogen receptor expression in <5% of ? tumor cells may not have a strong interaction with estrogen receptor modulators such as Tamoxifen. ??(Dr. Sky)/greyson ? NOTE: ??One or more of the reagents used in immunohistochemical testing in this case may not have been cleared or approved by the U.S. Food and Drug ? Administration (FDA). ??The FDA has determined that such clearance or approval is not necessary. ??These tests are used for clinical purposes. ??They should not be regarded as investigational or for research. ??These reagents' ??performance ? characteristics have been determined by [facility]. ??This ? laboratory is certified under the Clinical Laboratory Improvement Amendments of 1988 (CLIA-88) as qualified to perform high complexity clinical laboratory ? testing. ? Document reviewed and electronically signed by: ? Henrik Sky, MD ? Report date: 05/24/2009 ? By the signature above, the attending physician certifies that he/she has ? personally conducted a gross and/or microscopic examination of the described ? specimens and rendered or confirmed the above diagnosis. ? End of Report ? [facility] 05/18/2009 05/19/2009 15: 47 EST Brian Gross MD PATHOLOGY ORDERABLE S [facility] [address] [place] [address] documented in this encounter Visit Diagnoses Not on filedocumented in this encounter
--- OUTSIDE RECORDS SUMMARY | 2024-01-24 00:20 | XMS_ITS | Encounter Summary ---
Author Organization [facility] Address [address] [place] [address] Care Team Providers Care Alkylation Operator Name Role Phone Unknown, Provider Primary Care Provider Unava ilable Encounter Details Date Type Department Care Team (Late st Contact Info) Description 01/13/2007 Results Only [facility] [address] [place] [address] Flavio Gonzáles PA [address] [place] [phone] Social History Tobacco Use Types Packs/Day Years Used Date Smoking Tobacco: Never Assessed Sex and Gender Information Value Date Recorded Sex Assigned at Not on file Gender Identity Not on file Sexual Orientation Not on file documented as of this encounter Plan of Treatment Not on file documented as of this encounter Procedures Procedure Name Priority Date/Time Associated Diagnosis Comments CYTOPATHOLOGY Routine 01/13/2007 0:00 EDT documented in this encounter Results * CYTOPATHOLOGY (01/13/2007 0:00 EDT) Pathology Report: CYTOPATHOLOGY REPORT Reports generated via electronic interface contain original data; however they are lacking the format of the original report. Caution should be taken when reading/interpreti ng unformatted reports. Name: ? KATLYN WHITE ? Accession #: ? [id number] : ? 1940 (Age: 66) ??F ?Collect Date: ? 01/13/2007 Location: ? [facility] ? Receive Date: ? 01/14/2007 Provider: ?FLAVIO TREADWELL Copy to: ? Specimen/Source: ?ThinPrep Pap Test, [employer], processed on [employer] ThinPrep Imaging System, with manual evaluation Last Menstrual Period: ? Menopause Other: ? HPVA - HPV testing requested if ASC-US on the current ThinPrep Pap test. ? SPECIMEN ADEQUACY ? Satisfactory for Evaluation - transformation zone component present GENERAL CATEGORIZATION ? Negative for Intraepithelial Lesion or Malignancy ? Document reviewed and electronically signed by: ? MEAGAN Crews(ASCP) ? Report Date: ??01/17/2007 16:23 End of Report [facility] 01/13/2007 01/14/2007 Flavio TREADWELL PATHOLOGY ORDERABLES [facility] [address] [place] [address] documented in this encounter Visit Diagnoses Not on filedocumented in this encounter Care Teams Alkylation Operator Relationship Specialty Start Date End Date Unknown, Provider, PCP - General 05/20/09 documented as of this encounter
--- OUTSIDE RECORDS SUMMARY | 2024-01-24 00:21 | XMS_ITS | Encounter Summary ---
Author Organization [facility] Address [facility] [place] [address] Care Team Providers Care Toll Repairer Central Office Name Role Phone Nelia Bone POSTULANT Primary Care Provider [phone] Encounter Details Date Type Department Care Team (Latest Contact Info) Description 03/01/2016 Unscheduled Encounter Hematology/Oncology at [address] [id number] Aries Freedman, JAZZ [facility] [place] [address] Dietary counseling Social History Tobacco Use Types Packs/Day Years Used Date Smoking Tobacco: Never Sex and Gender Information Value Date Recorded Sex Assigned at Not on file Gender Identity Not on file Sexual Orientation Not on file documented as of this encounter Progress Notes * Aries Freedman, JAZZ - 03/01/2016 12:14 PM EST [facility] Initial Dietitian Assessment Seen By: Lashawn Freedman, MS, RD, SOIL EXPERT, LD Referred by: Caron Rosario RN and Melony Ordonez APRN Reason for visit: 14 lbs unintentional weightloss. Patient and diagnosis: Katlyn is here for follow-up. She is now 5+ years out from her Stage 0 breast cancer. She is feeling well and looking forward to being with her daughter and grandchildren overthe holidays. Assessment: HPI: Patient Active Problem List Diagnosis Code ??? Breast cancer, right breast C50.911 ??? Hypertension I10 ??? Osteoporosis M81.0 Meds: reviewed Ht: NNL Wt: Wt Readings from Last 3 Encounters: 03/01/16 52.6 kg (116 lb) 02/24/15 58.5 kg (129 lb) 08/05/14 56 kg (123 lb 8 oz) Wt Hx: UBW: % UBW: IBW: +/- 10% % IBW: BMI: 22.3 ___ Edema ___ Ascites ___Muscle wasting Calorie needs: 1000 - 1200 Protein needs: 63 Fluid needs: 1.2 L Food Intake: Am: Fruit and cereal bar w/ saltienes. Prunes at am and dinner, typically. OJ Noon: Kam dinner at meal site: ham w/ raisin sauce, scalloped pots, 1/2 roll, green mi casserole, tomato juice, water, pB paty pie. Will eat at meal site once or twice a week. Pm: small baked pot, canned Spinach, chx drumstick, 1/2 roll. Cider. Snacks: may snack in evening: kosovan muffin, fried egg and toast, milk at HS Fluids: doesn't drink coffee/tea. Reports I should drink more water than I do. Supplements/Frequency: has never tried them. ___ Ensure/Plus ___ Boost/Plus ___ CIB ___ Other: Teas, vitamins, or other nutritional supplements: FeSO4, MVI, Ca Food allergies or avoidances: knfa, doesn't care for oysters or liver Appetite: n/a Nausea: n/a Vomiting: n/a Chewing: denies Dentition: n/a Swallowing: denies Taste Changes: Denies Bowels: Baseline: varies, does eat prunes at breakfast and dinner to help with regularity. Other: reports ulcer on heel in middle of year, Food availability/purchasing, meal planning and preparation: She lives alone. Depression: Social Support: Oldest Dtr lives couple of miles from her. Sees her weekly, if not more. Economic Issues: [place] SNAP: $194/mos Physical Activity: Sr. Exercise, BIW. Wii bowls at [employer] [facility] twice a month, now active with removing snow off her car and scraping windows. Lives in [place] and walks to a lot of destinations (buddhist, post office, shops). 2nd floor apt. Level of Motivation/Readiness to Change: Nutrition Diagnosis: Was asked by Ana Rosario RN and Melony Ordonez APRN to meet with Mrs. Shirley. She has lost 14 lbs over the year, unintentionally. Reports her PCP doesn't like her to go lower than 130 lbs. Katlyn had a couple of questions regarding Ca and MVIs. She currently takes one, 600 mg tab of Ca.Sometimes she gets an on sale brand and it will dose 2. Recommended she take this brand one at am and other in evening. Also asked if there was much difference from Women's + 50 MVIs versus +50 MVIs.Discussed some micronutrients would be different; however, I couldn't say one is better than the other without looking at labels. I suspect greatest amount of weight loss was from her lack of activity when she experienced her ulcer on her foot from August- Nov of this year. She had been seeing her PCP, she was then sent to another provider who helped her with healing. She has since returned to her typical physical activity which is senior exercise, BIW and monthly wii bowling. Recommended an additional cup of milk/d or one CIB/d. Provided her a sample and coupon of CIB. Discussed how to prepare it. 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 If taking all 8 oz at one sitting impacts intake for meals, recommended dividing it in half and drinking it in between meals. Nutrition Intervention: ? Increase caloric needs: discussed ? Modify diet consistency: ? Increase frequency of meals and snacks: discussed ? Need for supplements Nutrition Goals: Educational Handouts provided: -- CIB sample and coupon Other Recommendations: ? Monitoring and Evaluation: Will follow up with Mrs. Hernandez she returns to clinic to re-evaluate. I have provided her with my card and contact information should she have any questions in the mean time. Thank you for this consult. documented in this encounter Plan of Treatment Not on file documented as of this encounter Visit Diagnoses Diagnosis Dietary counseling Dietary surveillance and counseling documented in this encounter Care Teams Toll Repairer Central Office Relationship Specialty Start Date End Date Nelia Bone APRN PCP - General 08/05/14 10/24/22 documented as of this encounter
--- OUTSIDE RECORDS SUMMARY | 2024-01-24 00:21 | XMS_ITS | Encounter Summary ---
Author Organization [facility] [place] [address] Care Team Providers Care Bilingual Student Tutor Name Role Phone Nelia Bone JUMANA Primary Care Provider [phone] Reason for Visit * Auth/Cert Specialty Diagnoses / Procedures Referred By Sima t Referred To Contact Diagnoses NSTEMI (non-ST elevated myocardial infarction) NSTEMI Referral ID Status Reason Start Date Expiration Date Visits Re quested Visits Authorized [id number] 1 1 Encounter Details Date Type Department Care Team (Late st Contact Info) Description 11/17/2019 11:20 AM EDT - 11/17/2019 12:20 PM EDT [place] [address] Izabela Emery MD [facility] [place] [address] CARDIAC CATHETERIZATION Social History Tobacco Use Types Packs/Day Years Used Date Smoking Tobacco: Never Alcohol Use Standard Drinks/Week Comments Not Currently 0 (1 standard drink = 0.6 oz pur e alcohol) Sex and Gender Information Value Date Recorded Sex Assigned at Not on file Gender Identity Not on file Sexual Orientation Not on file documented as of this encounter Last Filed Vital Signs Vital Sign Reading Time Taken Comments Blood Pressure 120/58 11/17/2019 12:20 PM EDT Pulse 64 11/17/2019 12:20 PM EDT Temperature 36.6 ??C (97.9 ??F) 11/17/2019 7:42 AM ED T Respiratory Rate 16 11/17/2019 12:20 PM EDT Oxygen Saturation 99% 11/17/2019 12:20 PM EDT Inhaled Oxygen Concentration - - Weight 51.2 kg (112 lb 14 oz) 11/17/2019 11:15 A M EDT Height 147.3 cm (4' 10) 11/16/2019 5:37 PM EDT Body Mass Index 23.36 11/16/2019 5:37 PM EDT documented in this encounter Discharge Summaries * Abelino Brooke MD - 11/18/2019 4:02 PM EDT Images from the original note were not included. Discharge Summary Patient Name: Katlyn Shirley Patient Age: 79 y.o. Language: Palestinian Race: White Ethnicity: Not nor Admit date: 11/16/2019 Discharge date and time: 11/18/2019 4:05 PM Attending Physician: Abelino Brooke MD Discharge Physician: Abelino Brooke MD Follow-up Recommendations for Providers: 1. Admitted for NSTEMI type 2 secondary to hypertensive emergency. Monitor BP and HR. Initiated on metoprolol tartrate 25mg BID and continued on lisinopril at reduced dose 5mg. Please titrate doses as needed. 2. Status post cardiac catheterization revealing nonobstructive CAD. Discharge medications include:aspirin, metoprolol, atorvastatin and lisinopril. 3. A1c 5.6%- diet controlled, follow up with PCP Inpatient Provider Contact Information: MD Eliane Perera PA-C Cardiovascular Medicine [phone] Discharge Diagnoses (Hospital Problems) and Secondary Diagnoses (Chronic Problems): Active Hospital Problems Diagnosis ??? Non-ST elevation myocardial infarction (NSTEMI) ??? NSTEMI (non-ST elevated myocardial infarction) ??? Hypertension Resolved Hospital Problems No resolved problems to display. Active Non-Hospital Problems Diagnosis ??? Osteoporosis ??? Breast cancer, right breast Operations/Major Procedures: Operations: Procedure(s): CARDIAC CATHETERIZATION Other Major Procedures: Cath 11/17/19 Hemodynamics: Left Heart Pressures Resting: Syst Diast EDP a v m Ao 130 56 86 LV 130 17 Coronary Angiography: Dominance: Right Left Main There was a 20% single discrete stenosis of the ostial segment of the left main artery. Left Anterior Descending There was mild diffuse (<=25% stenosis) disease of the proximal segment of the left anterior descending artery (LAD). The mid segment of the LAD had mild diffuse (<=25% stenosis) disease and it was also calcified. There was mild diffuse (<=25% stenosis) disease of the mid segment of the second diagonal branch (Diagonal 2) of the LAD. Left Circumflex There was mild diffuse (<=25% stenosis) disease of the proximal segment of the left circumflex artery (LCX) and it was calcified. The mid segment of the LCX had mild diffuse (<=25% stenosis) disease. Right Coronary Artery There was mild diffuse (<=25% stenosis) disease of the entire vessel segment of the right coronary artery (RCA). Vascular Access: Vascular Access Management: Mechanical Compression of the right radial artery access site was performed. Conclusions: * Nonobstructive coronary artery disease Complications/Events: The patient had no complications during these procedures. Other Studies: Echocardiogram 11/17/19 SUMMARY: 1. The left ventricular chamber size is normal. There is mild septal hypertrophy of the left ventricle without LVOT obstruction. There is normal global left ventricular systolic function with an estimated ejection fraction of 69% by biplane Vega's method. There are no left ventricular segmental wall motion abnormalities. 2. The right ventricle is normal in size and global systolic function. The estimated pulmonary artery systolic pressure is 28 mmHg (assuming RA pressure of 3 mmHg). 3. Bi-atrial size is normal. 4. There is no hemodynamically significant valve disease. The aortic valve is sclerotic. 5. See remainder of report for additional findings. There is no prior study available for comparison. History of Presentation: Katlyn Shirley is a 79 y.o. female w/ hx of breast cancer s/p partial mastectomy and RT in 2009,HTN, OP, and GERD who was transferred form [facility] for NSTEMI. ?? The HPI was provided by the patient and her daughter who was present at bedside. The patient statesthat she woke up at 2 AM with palpitations, SOB, and nausea. She states that she felt like her heart was pounding and she denies any chest pain. She denies any recent illness, fever, TOMAS, syncope. Shedenies any prior similar episodes but she states that she has been having episodes of heartburn andpalpitations with hot flashes which resolve after a few hours with PPI. ?? At OSH, the patient was noted to be hypertensive up to the 180s/100s with HR in the 100s and she was given lisinopril 20 mg p.o. EKG showed STD in V3-5 and TWI in aVL. Initial troponin was negative and second troponin was 0.08. The patient was loaded with aspirin 324 mg and Plavix 300 mg and started on a heparin drip. ?? On our encounter, the patient was noted to be comfortable and NAD. Her BP was elevated 180s-190s/100s with HR in the 100s. The patient was also feeling hot flashes. Hospital Course: #NSTEMI, likely type II 2/2 hypertensive emergency #Hypertensive emergency on essential hypertension Katlyn Shirley is a 79 y.o. female with a history of breast cancer s/p partial mastectomy and RT in 2009, HTN, OP, and GERD who was transferred from [facility] for NSTEMI. ECG at [facility] revealed STD V3-5 andTWI in AVL, repeat here without acute ischemic changes. Troponin trended positive. Also noted to be quite hypertensive. She was Plavix and aspirin loaded. Initiated on heparin and NTG infusion and transferred for cardiac evaluation. Echocardiogram was performed which revealed EF 69% without significant valvular disease or WMAs. Cardiac catheterization revealed nonobstructive coronary artery disease. Heparin and Plavix were discontinued after cath did not revealed obstructive disease. Initiallyplaced on nitroglycerin drip however discontinued once blood pressure at goal. She was initially given a dose of amlodipine but became hypotensive so additional doses were held. She remained controlled on oral agents. Discharge medications: lisinopril 5mg daily, metoprolol tartrate 25mg BID, atorvastatin 40mg, aspirin 81mg daily. ?? #Hyperlipidemia Lipid profile revealed: TC 209, HDL 91, TG 48, LDL 108. She was Initiated on a high intensity statin, atorvastatin 40mg daily. ?? #Impaired glucose tolerance Routine screening revealed A1c 5.6%. Recommend follow up with PCP. Currently diet controlled. ?? #?Acute UTI She was given 1 dose of Levaquin at OSH for abnormal UA. Patient remained symptomatic and antibiotics were not continued. ?? Functional and Cognitive Status: Alert and oriented x 3, ambulatory-independent Important Studies and Lab Data: Labs: Lab Results Component Value Date WBC 6.7 11/18/2019 HGB 13.3 11/18/2019 HCT 39.4 11/18/2019 PLATELET 187 11/18/2019 No results for input(s): INR in the last 168 hours. Lab Results Component Value Date NA 129 (L) 11/18/2019 K 4.3 11/18/2019 CL 99 11/18/2019 CO2 22 11/18/2019 BUN 19 (H) 11/18/2019 CREATININE 0.93 11/18/2019 Recent Labs 11/16/191928 TSH 3.01 Recent Labs 11/16/191928 HA1C 5.6 Recent Labs 11/17/19 0756 11/17/19 0132 11/16/191928 TROPONINT 0.07* 0.12* 0.09* Lab Results Component Value Date CHLPL 209 11/16/2019 HDL 91 11/16/2019 CHOLHDL 2.3 11/16/2019 TRIG 48 11/16/2019 LDLCHOL 108 11/16/2019 Pending Studies and Lab Data: None Discharge Conditions/Prognosis: Alert and oriented x 3, ambulatory-independent Discharge to: Home Updated Allergies/ADRs: Allergies Allergen Reactions ??? Codeine Phosphate ??? Polymyxin B Sulfate Immunizations Given this Hospitalization: Immunization History Administered Date(s) Administered ??? Influenza Vaccine, Whole 01/23/2005, 01/10/2006 Discharge Medications: Your Medications Some of the medications listed here do not show instructions, such as how often to take the medication. Ask your doctor or nurse how to use these medications. Specifically ask about this and similar medications: CIS Free Text Med - Multiple Vitamin New Medications Dose Details aspirin EC 81 mg Tbec Take 1 tablet by mouth daily. Start taking on: November 19, 2019 81 mg Quantity: 30 tablet Refills: 3 atorvastatin 40 mg Tab Commonly known as: Lipitor Take 1 tablet by mouth every evening. 40 mg Quantity: 90 tablet Refills: 3 metoprolol tartrate 25 mg Tab Commonly known as: Lopressor Take 1 tablet by mouth 2 times daily. 25 mg Quantity: 180 tablet Refills: 3 Continued medications with new dosing Dose Details lisinopriL 5 mg Tab Commonly known as: Prinivil;Zestril Take 1 tablet by mouth daily. What changed: ?? medication strength ?? how much to take 5 mg Quantity: 30 tablet Refills: 3 Continued medications, unchanged Dose Details Calcium 500 mg Tab Take 600 mg by mouth 2 times daily. 600 mg Refills: 0 CIS FREE TEXT MED Refills: 0 citalopram 10 mg Tab Commonly known as: CeleXA Take 10 mg by mouth daily. 10 mg Refills: 0 omeprazole 20 mg Cpdr Commonly known as: PriLOSEC Take 20 mg by mouth daily. 20 mg Refills: 0 rOPINIRole 0.5 mg Tab Commonly known as: REQUIP Take 0.5 mg by mouth nightly. 0.5 mg Refills: 0 STOPPED Medications ferrous sulfate 324 mg (65 mg iron) Tbec Smoking Status at Discharge: Social History Tobacco Use Smoking Status Never Smoker Instructions Given to Patient at Discharge: There are no outpatient Patient Instructions on file for this admission. General Instructions Call your doctor if: Chest pain, dyspnea, pain or swelling in legs occurs If you have non-emergent questions, prior to your follow-up visit call: Saturday-Saturday between the hours of 8A-5PM please call the Cardiology Clinic [phone] to speak with a nurse. All other hours please call the Hospital [facility] [phone] and ask to speak to the dip lube operator on-call. Return to work: One week Driving: No driving for 48 hours after cath Follow up Appointments: Doctor Where Phone # Date Time PCP Liz Friend APRN [address] [place] [address] Wednesday, November 27, 2019 11:40AM Home oxygen therapy: N/A Arrangements for VNA/home care: N/A Discharge References/Attachments None Eliaen Castano PA-C 11/18/2019 documented in this encounter Discharge Instructions * Discharge Instructions* Eliane Castano PA - 11/18/2019 12:00 PM EDT Call your doctor if: Chest pain, dyspnea, pain or swelling in legs occurs If you have non-emergent questions, prior to your follow-up visit call: Saturday-Saturday between the hours of 8A-5PM please call the Cardiology Clinic [phone] to speak with a nurse. All other hours please call the Hospital [facility] [phone] and ask to speak to the dip lube operator on-call. Return to work: One week Driving: No driving for 48 hours after cath Follow up Appointments: Doctor Where Phone # Date Time PCP Liz Friend APRN [address] [place] [address] Wednesday, November 27, 2019 11:40AM Home oxygen therapy: N/A Arrangements for VNA/home care: N/A documented in this encounter Medications at Time of Discharge Medication Sig Dispensed Refills Start Date End Date atorvastatin (Lipitor) 40 mg Tablet Take 1 tablet by mouth every evening. 90 tablet 3 11/18/2019 lisinopriL (Prinivil;Zestril) 5 mg Tablet Take 1 tablet by mouth daily. 30 tablet 3 11/18/2019 metoprolol tartrate (Lopressor) 25 mg Tablet Take 1 tablet by mouth 2 times daily. 180 tablet 3 11/18/2019 aspirin EC 81 mg Tablet, Delayed Release (E.C.) Take 1 tablet by mouth daily. 30 tablet 3 11/19/2019 rOPINIRole (REQUIP) 0.5 mg Tablet Take 0.5 mg by mouth nightly. omeprazole (PRILOSEC) 20 mg Capsule, Delayed Release(E.C.) Take 20 mg by mouth daily. Calcium 500 mg Tab Take 600 mg by mouth 2 times daily. citalopram (CELEXA) 10 mg tablet Take 10 mg by mouth daily. CIS Free Text Med - Multiple Vitamin 04/28/2010 documented as of this encounter Progress Notes * Linette Means RN - 11/18/2019 1:06 PM EDT Chart reviewed, care reviewed with primary team and at interdisciplinary rounds. Ms Shirley is medically ready for discharge to home without any services today. Met with patient who is feeling ready for discharge. Will be transported via private car-daughter will be picking her up after work. Medicare Discharge Rights letter was reviewed and signed yesterday during admission process. This plan was formulated with input from patient, family and team. All are in agreement with plan. * Eliane Castano PA - 11/18/2019 7:47 AM EDT Images from the original note were not included. Inpatient Cardiology Progress Note Patient Name: Katlyn Shirley Service: RAIL EQUIPMENT OPERATOR / PA Responsible Attending: Abelino Brooke MD Reason for continued hospitalization: NSTEMI type 2 s/p cardiac cath revealing nonobstructive disease HTN- medication adjustment Active Problems: Active Hospital Problems Diagnosis ??? Non-ST elevation myocardial infarction (NSTEMI) ??? NSTEMI (non-ST elevated myocardial infarction) ??? Hypertension Resolved Hospital Problems No resolved problems to display. Interval History: Patient was sitting up eating breakfast. Denies any acute complaints of events over night. Her blood pressure has been better controlled on oral regimen. Denies chest pain. In agreement for dischargetoday. Review of Systems: Review of Systems Constitutional: Negative for chills and fever. Respiratory: Negative for cough and shortness of breath. Cardiovascular: Positive for palpitations (resolved). Negative for chest pain and leg swelling. Gastrointestinal: Positive for nausea (resolved) and vomiting (resolved). Negative for abdominal pain. Genitourinary: Negative for difficulty urinating, dysuria and urgency. Neurological: Negative for syncope and light-headedness. Telemetry: HR: SR/SB 40-60s Meds: Scheduled Meds: ??? calcium citrate 950 mg Oral Daily ??? citalopram 10 mg Oral Daily ??? lisinopriL 10 mg Oral Daily ??? pantoprazole EC 40 mg Oral Daily ??? rOPINIRole 0.5 mg Oral Nightly ??? sodium chloride 0.9 % (flush) 5 mL Intravenous BID ??? sodium chloride 0.9 % (flush) 5 mL Intravenous BID ??? aspirin EC 81 mg Oral Daily ??? metoprolol tartrate 25 mg Oral Q12H ANIKA ??? atorvastatin 40 mg Oral QPM Continuous Infusions: PRN Meds:nitroGLYcerin, melatonin, sodium chloride 0.9 % (flush), lidocaine, sodium chloride 0.9 % (flush), acetaminophen Physical Exam: Vital Signs: Last value Range last 12 hrs Temperature Temp: 36.6 ??C (97.9 ??F) Temp: -- Heart Rate Heart Rate: 64 Heart Rate: [64] Blood Pressure BP: 110/58 BP: (95-110)/(51-58) Respiratory Rate Resp: 20 Resp: [20] SpO2 SpO2: 97 % SpO2: [97 %] Physical Exam Constitutional: She is oriented to person, place, and time. She appears well- developed and well-nourished. No distress. HENT: Head: Normocephalic and atraumatic. Mouth/Throat: Oropharynx is clear and moist. Eyes: Conjunctivae and EOM are normal. Neck: Normal range of motion. Neck supple. Cardiovascular: Normal rate, regular rhythm, normal heart sounds and intact distal pulses. No murmur heard. Pulmonary/Chest: Effort normal and breath sounds normal. No respiratory distress. She has no wheezes. She has no rales. Abdominal: Soft. Bowel sounds are normal. She exhibits no distension. Musculoskeletal: Normal range of motion. General: No edema. Neurological: She is alert and oriented to person, place, and time. Skin: Skin is warm and dry. She is not diaphoretic. Right radial access site clean, dry, intact. No hematoma. Psychiatric: She has a normal mood and affect. Nursing note and vitals reviewed. Lab Comments: Recent Labs 11/18/1931111/17/1913111/16/191928 WBC 6.7 9.8* 9.6* HGB 13.3 13.5 14.8 HCT 39.4 40.6 43.7 PLATELET 187 206 204 No results for input(s): INR in the last 168 hours. Recent Labs 11/18/1931111/16/191928 NA 129* 132* K 4.3 4.0 CL 99 96* CO2 22 20* BUN 19* 15 CREATININE 0.93 0.89 Recent Labs 11/16/191928 AST 29 ALT 16 ALKPHOS 60 BILITOT 0.6 BILIDIR 0.1 Recent Labs 11/18/1931111/16/191928 CALCIUM 8.9 9.3 MAGNESIUM -- 0.74 PHOS -- 2.1* Recent Labs 11/17/19 0756 11/17/19 0132 11/16/191928 TROPONINT 0.07* 0.12* 0.09* Pertinent Radiographic/Diagnostic Results: CXR [facility] 11/16/19 No acute cardiopulmonary process ECG 11/17/[address] changes Echocardiogram 11/17/19 SUMMARY: 1. The left ventricular chamber size is normal. There is mild septal hypertrophy of the left ventricle without LVOT obstruction. There is normal global left ventricular systolic function with an estimated ejection fraction of 69% by biplane Vega's method. There are no left ventricular segmental wall motion abnormalities. 2. The right ventricle is normal in size and global systolic function. The estimated pulmonary artery systolic pressure is 28 mmHg (assuming RA pressure of 3 mmHg). 3. Bi-atrial size is normal. 4. There is no hemodynamically significant valve disease. The aortic valve is sclerotic. 5. See remainder of report for additional findings. There is no prior study available for comparison [facility] 11/17/19 Conclusions: * Nonobstructive coronary artery disease Assessment: Katlyn Shirley is a 79 y.o. female with a history of breast cancer s/p partial mastectomy and RT in 2009, HTN, OP, and GERD who was transferred form [facility] for NSTEMI. ECG at [facility] revealed STD V3-5 andTWI in AVL, repeat here no acute ischemic changes. Troponin trended positive. Also noted to be quite hypertensive. She was Plavix and aspirin loaded. Initiated on heparin and NTG infusion and transferred for cardiac evaluation. Echocardiogram revealed EF 69%, no significant valvular disease or WMAs. Cardiac catheterization with nonobstructive disease. Plan for BP management and discharge home. Plan: #NSTEMI, type II 2/2 hypertensive emergency #Hypertensive emergency on essential hypertension Telemetry monitoring Troponin trend 0.08-0.09-0.12-0.07 ProBNP 2,621 no evidence of volume overload on exam Admission EKG without acute ischemic changes, compared to [facility] ECG STD V3-5 andTWI in AVL Loaded with aspirin 324mg (11/15 at 0652) and Plavix 300mg (11/15 at 0905) at OSH, continue aspirin 81mg Heparin and Plavix d/c after cath Initially on nitro drip for BP control on admission, has been discontinued since 11/16 once BP stabilized Given lisinopril 20 mg p.o. at OSH, will continue home dose lisinopril 10mg Start metoprolol 25 mg every 12 hours. Initiated on high intensity statin, atorvastatin 40mg daily Echocardiogram with EF 69%, no sig valvular disease or WMAs. [facility] 11/16 revealed nonobstructive disease #Hyperlipidemia Lipid profile TC 209, HDL 91, TG 48, LDL 108 Initiated on high intensity statin atorvastatin 40mg #Impaired glucose tolerance A1c 5.6% Diet controlled #?Acute UTI Given 1 dose of Levaquin at OSH for abnormal UA Patient asymptomatic, will not continue to treat #GERD Continue PPI ?? #Hx of breast cancer s/p partial mastectomy and RT in 2009 #OP Continue home meds ?? Full code DVT prophylaxis: heparin d/c after cath. Ambulate, discharge today. Discussed with MD Eliane Perera PA-C 11/18/2019 Associated attestation - Abelino Brooke MD - 11/18/2019 1:16 PM EDT Cardiology Attending Note I interviewed and examined the patient during comprehensive bedside rounds. I concur with the summary of interval events, active hospital-focused problem list and plan of care as described in the note below. I personally reviewed the medications, laboratory results, treatment decisions and updated the patient. The patient understands the plan and all questions were answered. Abelino Brooke MD, FACC Section of Cardiovascular Medicine [facility] Package Wrappermotorcycle subassembler [facility] [employer] [facility] * Eliane Castano PA - 11/17/2019 9:56 AM EDT Images from the original note were not included. Inpatient Cardiology Progress Note Patient Name: Katlyn Shirley Service: RAIL EQUIPMENT OPERATOR / PA Responsible Attending: Abelino Brooke MD Reason for continued hospitalization: Awaiting cardiac catherization Active Problems: Active Hospital Problems Diagnosis ??? Non-ST elevation myocardial infarction (NSTEMI) ??? NSTEMI (non-ST elevated myocardial infarction) ??? Hypertension Resolved Hospital Problems No resolved problems to display. Interval History: Patient presented yesterday evening for atypical presentation of NSTEMI with hypertensive emergency. Chief complaint at outside facility included N/V and palpitations. She denies recurrence of symptoms. Nursing note indicates some N/V on admission. Denies chest pain or SOB. She is in agreement for cardiac cath today. All questions and concerns were addressed. Review of Systems: Review of Systems Constitutional: Negative for chills and fever. Respiratory: Negative for cough and shortness of breath. Cardiovascular: Positive for palpitations (resolved). Negative for chest pain and leg swelling. Gastrointestinal: Positive for nausea and vomiting (resolved). Negative for abdominal pain. Genitourinary: Negative for difficulty urinating, dysuria and urgency. Neurological: Negative for syncope and light-headedness. Telemetry: HR: SR 60-70s Meds: Scheduled Meds: ??? calcium citrate 950 mg Oral Daily ??? citalopram 10 mg Oral Daily ??? lisinopriL 10 mg Oral Daily ??? pantoprazole EC 40 mg Oral Daily ??? rOPINIRole 0.5 mg Oral Nightly ??? sodium chloride 0.9 % (flush) 5 mL Intravenous BID ??? sodium chloride 0.9 % (flush) 5 mL Intravenous BID ??? aspirin EC 81 mg Oral Daily ??? metoprolol tartrate 25 mg Oral Q12H ANIKA ??? atorvastatin 40 mg Oral QPM ??? amLODIPine 5 mg Oral Nightly Continuous Infusions: ??? heparin (porcine) infusion 650 Units/hr (11/17/19917) ??? nitroGLYcerin Stopped (11/17/1944) PRN Meds:sodium chloride 0.9 % (flush), lidocaine, nitroGLYcerin, heparin (porcine) AND heparin(porcine) infusion, sodium chloride 0.9 % (flush), acetaminophen Physical Exam: Vital Signs: Last value Range last 12 hrs Temperature Temp: 36.6 ??C (97.9 ??F) Temp: [36.6 ??C (97.9 ??F)] Heart Rate Heart Rate: 68 Heart Rate: [60-71] Blood Pressure BP: 128/65 BP: (98-149)/(48-75) Respiratory Rate Resp: 12 Resp: [12-16] SpO2 SpO2: 99 % SpO2: [97 %-99 %] Physical Exam Constitutional: She is oriented to person, place, and time. She appears well- developed and well-nourished. No distress. HENT: Head: Normocephalic and atraumatic. Mouth/Throat: Oropharynx is clear and moist. Eyes: Conjunctivae and EOM are normal. Neck: Normal range of motion. Neck supple. Cardiovascular: Normal rate, regular rhythm, normal heart sounds and intact distal pulses. No murmur heard. Pulmonary/Chest: Effort normal and breath sounds normal. No respiratory distress. She has no wheezes. She has no rales. Abdominal: Soft. Bowel sounds are normal. She exhibits no distension. Musculoskeletal: Normal range of motion. General: No edema. Neurological: She is alert and oriented to person, place, and time. Skin: Skin is warm and dry. She is not diaphoretic. Psychiatric: She has a normal mood and affect. Nursing note and vitals reviewed. Lab Comments: Recent Labs 11/17/1913111/16/191928 WBC 9.8* 9.6* HGB 13.5 14.8 HCT 40.6 43.7 PLATELET 206 204 No results for input(s): INR in the last 168 hours. Recent Labs 11/16/191928 NA 132* K 4.0 CL 96* CO2 20* BUN 15 CREATININE 0.89 Recent Labs 11/16/191928 AST 29 ALT 16 ALKPHOS 60 BILITOT 0.6 BILIDIR 0.1 Recent Labs 11/16/191928 CALCIUM 9.3 MAGNESIUM 0.74 PHOS 2.1* Recent Labs 11/17/19 0756 11/17/1913111/16/191928 TROPONINT 0.07* 0.12* 0.09* Pertinent Radiographic/Diagnostic Results: CXR [facility] 11/16/19 No acute cardiopulmonary process ECG 11/17/[address] changes Echocardiogram 11/17/[address] [facility] 11/17/19 Pending Assessment: Katlyn Shirley is a 79 y.o. female with a history of breast cancer s/p partial mastectomy and RT in 2009, HTN, OP, and GERD who was transferred form [facility] for NSTEMI. ECG at [facility] revealed STD V3-5 andTWI in AVL, repeat here no acute ischemic changes. Troponin trended positive. Also noted to be quite hypertensive. She was Plavix and aspirin loaded. Initiated on heparin and NTG infusion and transferred for cardiac evaluation. Plan for cardiac catheterization and echocardiogram today for ischemic evaluation. Plan: #NSTEMI, likely type II 2/2 HTN, will have to rule out type I #Hypertensive emergency on essential hypertension Telemetry monitoring Troponin trend 0.08-0.09-0.12-0.07 ProBNP 2,621 no evidence of volume overload on exam Admission EKG without acute ischemic changes, compared to [facility] ECG STD V3-5 andTWI in AVL Loaded with aspirin 324mg (11/15 at 0652) and Plavix 300mg (11/15 at 0905) at OSH, continue aspirin 81mg and Plavix 75mg daily On heparin drip, will continue for now On nitro drip for BP control on admission, has been discontinued once BP stabilized Given lisinopril 20 mg p.o. at OSH, will continue daily lisinopril 10mg Start metoprolol 25 mg every 12 hours Initiated on high intensity statin, atorvastatin 40mg daily Echocardiogram today [facility] with possible PCI today #Hyperlipidemia Lipid profile TC 209, HDL 91, TG 48, LDL 108 Initiated on high intensity statin atorvastatin 40mg #Impaired glucose tolerance A1c 5.6% Diet controlled #?Acute UTI Given 1 dose of Levaquin at OSH for abnormal UA Patient asymptomatic, will not continue to treat Will follow UC results #GERD Continue PPI ?? #Hx of breast cancer s/p partial mastectomy and RT in 2009 #OP Continue home meds ?? Full code DVT prophylaxis: heparin infusion Discussed with MD Eliane Perera PA-C 11/17/2019 Associated attestation - Abelino Brooke MD - 11/17/2019 12:44 PM EDT Cardiology Attending Note I interviewed and examined the patient during comprehensive bedside rounds. I concur with the summary of interval events, active hospital-focused problem list and plan of care as described in the note below. I personally reviewed the medications, laboratory results, treatment decisions and updated the patient. The patient understands the plan and all questions were answered. Cath to be done today. Suspect more likely demand ischemia as story is not typical CP. Will adjust plan accordingly. Aeblino Brooke MD, [facility] Section of Cardiovascular Medicine [facility] Package Wrappermotorcycle subassembler [facility] documented in this encounter H&P Notes * Ruben Swenson MD - 11/16/2019 7:13 PM EDT Images from the original note were not included. Cardiology History and Physical Patient Name: Katlyn Shirley Date of : 1940 Age: 79 y.o. Hospital Admit Date: 11/16/2019 PCP: Nelia Bone APRN Presenting Diagnosis/Chief Complaint: NSTEMI/ Hypertensive emergency/ Palpitations/ Nausea Active Problem List: Active Hospital Problems Diagnosis ??? Non-ST elevation myocardial infarction (NSTEMI) ??? NSTEMI (non-ST elevated myocardial infarction) ??? Hypertension Resolved Hospital Problems No resolved problems to display. History of Present Illness: HPI Katlyn Shirley is a 79 y.o. female w/ hx of breast cancer s/p partial mastectomy and RT in 2009, HTN, OP, and GERD who was transferred form [facility] for NSTEMI. The HPI was provided by the patient and her daughter who was present at bedside. The patient statesthat she woke up at 2 AM with palpitations, SOB, and nausea. She states that she felt like her heart was pounding and she denies any chest pain. She denies any recent illness, fever, TOMAS, syncope. Shedenies any prior similar episodes but she states that she has been having episodes of heartburn andpalpitations with hot flashes which resolve after a few hours with PPI. At OSH, the patient was noted to be hypertensive up to the 180s/100s with HR in the 100s and she was given lisinopril 20 mg p.o. EKG showed STD in V3-5 and TWI in aVL. Initial troponin was negative and second troponin was 0.08. The patient was loaded with aspirin 324 mg and Plavix 300 mg and started on a heparin drip. On our encounter, the patient was noted to be comfortable and NAD. Her BP was elevated 180s-190s/100s with HR in the 100s. The patient was also feeling hot flashes. Past Medical History: Past Medical History: Diagnosis Date ??? 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 hematoma surgical site Radiation therapy: 6100 cGy in 33 FRACTIONS completed 09/05/2009 ??? Depression ??? GERD (gastroesophageal reflux disease) ??? Hypertension ??? Osteoporosis Surgical History/Problems: Past Surgical History: Procedure Laterality Date ??? MASTECTOMY, PARTIAL ??? TUBAL LIGATION Significant Family History: Family History Problem Relation Age of Onset ??? Heart Disease Mother ??? Diabetes Mother ??? Heart Disease Father ??? Hyperlipidemia Sister Social History: Social History Socioeconomic History ??? Marital status: Spouse name: Not on file ??? Number of children: Not on file ??? Years of education: Not on file ??? Highest education level: Not on file Occupational History ??? Not on file Social Needs ??? Financial resource strain: Not on file ??? Food insecurity Worry: Not on file Inability: Not on file ??? Transportation needs Medical: Not on file Non-medical: Not on file Tobacco Use ??? Smoking status: Never Smoker Substance and Sexual Activity ??? Alcohol use: Not Currently ??? Drug use: Not on file ??? Sexual activity: Not on file Lifestyle ??? Physical activity Days per week: Not on file Minutes per session: Not on file ??? Stress: Not on file Relationships ??? Social connections Talks on phone: Not on file Gets together: Not on file Attends pentecostalism service: Not on file Active member of club or organization: Not on file Attends meetings of clubs or organizations: Not on file Relationship status: Not on file ??? Intimate partner violence Fear of current or ex partner: Not on file Emotionally abused: Not on file Physically abused: Not on file Forced sexual activity: Not on file Other Topics Concern ??? Not on file Social History Narrative ??? Not on file REVIEW OF SYSTEMS: General ROS: No fatigue or weakness. Psychological: no anxiety / Depression Ophthalmic: No blurred vision or watery or red eyes. ENT: Negative for ear discharge or running nose or cold or throat swelling. Allergy: negative for itchy/watery eyes Heme: Negative for bleeding, bruising, fatigue, jaundice, night sweats Endocrine: negative for polydipsia/polyuria/ heat intolerance Respiratory: As in HPI CVS: As in HPI GI: No abd pain, change in bowel habits, or black or bloody stools Genitourinary: No dysuria, trouble voiding, or hematuria MSK: negative for joint pain, joint stiffness or joint swelling Neurological: No TIA or stroke symptoms PHYSICAL EXAM: Last set of vital signs: BP 177/87 Pulse 83 Resp 20 Ht 147.3 cm (4' 10) Wt 51.3 kg (113 lb) SpO2 99% BMI 23.62 kg/m?? Gen/Constitutional: Comfortable and NAD HEENT: BHANU, EOMI, No conjunctival pallor or scleral icterus. Cardiac/CVS: RRR. NL s1, s2. No s3 or s4. No MRG. No JVD Pulm/Chest: CTAB Abd/GI: Soft. No distention or tenderness. Musculoskeletal: no peripheral edema . Pulses palpable B/L, no calf tenderness, swelling, or erythema. Neuro/CLOTH SHEARING SUPERVISOR: AAO x 3, No gross motor deficits. No sensory loss. No gait ataxia. Skin/Integumentary: No rash A&P: Katlyn Shirley is a 79 y.o. female w/ hx of breast cancer s/p partial mastectomy and RT in 2009, HTN, OP, and GERD who was transferred form [facility] for NSTEMI. #NSTEMI, likely type II 2/2 HTN, will have to rule out type I #Hypertensive emergency Admit to cardiology Telemetry monitoring Trend troponin Admission EKG for comparison Labs including CBC, TSH, LFT, BMP, proBNP, A1c, lipid panel Loaded with aspirin 324 and Plavix 300 mg at OSH, continue aspirin 81 mg and Plavix 75 mg for now On heparin drip, will continue for now Given lisinopril 20 mg p.o. at OSH, will continue daily lisinopril Start metoprolol 25 mg every 12 hours Start nitro drip for BP control Atorvastatin 40 mg p.o. daily Echo in a.m. Possible cardiac cath in a.m. depending on troponin trend, EKG changes, and symptomatology #Hx of breast cancer s/p partial mastectomy and RT in 2010 #OP Continue home meds HM: Full code Heart healthy diet, n.p.o. at midnight DVT prophylaxis: On heparin drip Ruben Swenson MD 11/16/2019 Cardiac cath Pre Procedure Note The indications, expected benefits and potential risks of heart catheterization were reviewed in detail with the patient. The potential for , heart attack, stroke, kidney failure, hemorrhage, allergic reaction, vascular complications and infection were reviewed in detail. The possibility of stenting and other percutaneous intervention with associated risk was reviewed. The possible need for emergent coronary artery bypass surgery was reviewed. After a discussion about the above, and havinganswered all questions posed, the patient was provided with a consent which was reviewed and signed. ASA: III Mallampati: II Sedation Plan: Moderate conscious sedation Assessment and Plan: Proceed with cardiac cath, see note above for further details. documented in this encounter Miscellaneous Notes * Consult Note - Abigail Villanueva RN - 11/18/2019 7:02 PM EDT Katlyn Shirley has been admitted with diagnosis of NSTEMI type 2 secondary to hypertensive emergency. No cardiac rehab referral at this time. * Plan of Care - Tanner Cheema RN - 11/18/2019 4:41 PM EDT Pt. Is A/O x 4. SR on tele. See report for details. No complaints of pain throughout the shift. Ambulated to the bathroom several times w/o issue. Will continue to monitor. * Plan of Care - Tanner Cheema RN - 11/17/2019 7:26 PM EDT Pt. Is A/O x 4. SR on tele. See report for details. No complaints of pain throughout the day. Went for left heart cath. Right radial site was CDI and TR band was removed w/o complication. Ambulated to bathroom several times w/o issue. Rested comfortably otherwise. * Initial Assessments - Zulema Parsons RN - 11/17/2019 3:29 PM EDT Office of Care Management Assessment Medical record reviewed. Plan of care and patient status discussed with direct care RN and/or Care Team in multidisciplinary rounds. Screening: Last COVID test: COVID-19 PCR Status: Final result (Collected: 11/16/2019 23:45) Result Information Date and Time: Resulted: 11/17/2019 02:34 Status: Final result Specimen Information: Nasopharyngeal Swab Symptoms->Surveillance ?? Component Value Flag Ref Range Units Status Rapid SARS-CoV-2 RNA Not Detected Not Detected 79 y.o. female here for evaluation and management of NSTEMI . Present on Admission: ??? Hypertension ??? NSTEMI (non-ST elevated myocardial infarction) Patient has not been admitted to a hospital within the last 30 days. Patient receiving hospital care under Inpatient status. Admission order reviewed. Primary Insurance on file: MEDICARE Secondary Insurance on file:@ Medicaid [place] Primary care provider on file: Nelia Bone APRN [phone] Liz giles COMMERCIAL DECORATOR [place] [phone] Advance Directive on file and Code Status: Attempt Cardiopulmonary Resuscitation - Inpatient Call MD office for AD Patient? s Functional Status: A&Ox4 Independent without a device Living Situation: lives alone in apartment [address] [place] [phone] Supports: daughter Simone Sierra, Brinda Ron [phone] cell Assessment: Patient with no apparent RNCM/SW needs at this time. No housing, transportation, insurance, resources concerns identified at this time. Supports in place to achieve a safe post-hospital transition. No identified barriers to accessing necessary care and/or follow-up after discharge. Plan: Patient to d/c to home when medically ready. power checker/Tool Room Attendant will continue to follow patient???s progress and remain available if situation changes for coordination of care, psychosocial support and/or discharge planning. Zulema Parsons, RN [phone] * Brief Op Note - Izabela Emery MD - 11/17/2019 12:04 PM EDT Preliminary Cardiac Catheterization Procedure Note: Patient Name: Katlyn Shirley : [id number] MR#: [id number] Case Date: 11/17/2019 Talent Specialist: Surgeon(s) and Role: * Izabela Emery MD - Primary * German Teresa MD - Fellow Preoperative diagnosis: ASCVD Postoperative diagnosis: non-obstructive CAD Procedure(s) performed: Coronary angiography, left heart cath Access: 5 SL R radial => TR band A time-out was conducted prior to the start of the procedure to verify the correct patient and procedure, procedure location, and all relevant critical information. Preliminary findings: R dominant coronary circulation with mild luminal irregularities and no evident obstructive lesions. LVEDP 17. The patient tolerated the procedures smoothly and was transferred from the cardiac catheterization lab to the next level of care in stable condition. No evident early complications. Full report to follow. IZABELA EMERY MD * Plan of Care - Melony Crews RN - 11/17/2019 5:09 AM EDT Problem: Patient Care Overview Goal: Plan of Care Review OUTCOME EVALUATION NOTE: OUTCOME SUMMARY: Pt admitted in fair condition with complaints of palpitations. Very hypertensive on arrival. Nitro drip started. Pt complained of nausea and medicated with Zofran with relief. Daughter at bedside. Metoprolol and Norvasc given as ordered. Nitro was able to be stopped after BP came down. Pt was able to rest between care. Call light in reach. Assisted to BR without difficulty. PLAN MOVING FORWARD: Cardiac cath BP control INDIVIDUALIZED FALL PREVENTION INTERVENTIONS: Patient-specific fall risk factors per assessment: [current deficits]: Tubings, wires Assistance [level of assistance required for transfers and ambulation]: sba Supervision [direct monitoring required during toileting and ADLs]: independent Surveillance [continuous indirect monitoring]: Hourly roudning, telemetry, oximetry Patient-specific fall prevention interventions for sensory deficits provided, if applicable: [X] N/A CPG GOAL OUTCOME EVALUATION: documented in this encounter Plan of Treatment Not on file documented as of this encounter Procedures Procedure Name Priority Date/Time Associated Diagnosis Comments BMP W/FASTING GLUCOSE Routine 11/18/2019 3:12 AM EDT HEMOGRAM Routine 11/18/2019 3:12 AM EDT DIFFERENTIAL, AUTOMATED Routine 11/18/19 3:12 AM EDT HC VENIPUNCTURE Routine 11/18/2019 3:12 AM EDT CARDIAC CATHETERIZATION Routine 11/17/19 12:06 PM EDT ECHO COMPLETE Routine 11/17/2019 10:05 AM EDT Hypertension, unspecified type Non-ST elevation myocardial infarction (NSTEMI) HC UNFRACTIONATED HEPARIN (HEP UFH) Timed 11/17/2019 7:56 AM EDT HC TROPONIN T STAT 11/17/2019 7:56 AM EDT HC UNFRACTIONATED HEPARIN (HEP UFH) STAT 11/17/2019 1:32 AM EDT HEMOGRAM Routine 11/17/2019 1:32 AM EDT DIFFERENTIAL, AUTOMATED Routine 11/17/19 1:32 AM EDT HC CBC,PLT & AUTO DIFF Routine 0 1:32 AM EDT HC VENIPUNCTURE STAT 11/17/2019 1:32 AM EDT RAPID COVID-19 PCR ([facility]) Routine 11/16/2019 11:45 PM EDT EKG 12-LEAD Routine 11/16/2019 7:47 PM EDT Hypertension, unspecified type Non-ST elevation myocardial infarction (NSTEMI) HC UNFRACTIONATED HEPARIN (HEP UFH) STAT 11/16/2019 7:29 PM EDT HEMOGRAM Routine 11/16/2019 7:29 PM EDT DIFFERENTIAL, AUTOMATED Routine 11/16/19 20 7:29 PM EDT HC CBC,PLT & AUTO DIFF Routine 0 7:29 PM EDT HC TROPONIN T STAT 11/16/2019 7:29 PM EDT HC THYROID STIMULATING HORMONE, SERUM Routine 11/16/2019 7:29 PM EDT HC PHOSPHORUS, SERUM Routine 11/16/2019 7:29 PM EDT HC PROBNP Routine 11/16/2019 7:29 PM EDT HC MAGNESIUM, SERUM Routine 11/16/2019 7 :29 PM EDT HC HEMOGLOBIN A1C Routine 11/16/2019 7:2 9 PM EDT HEPATIC FUNCTION PANEL Routine 0 7:29 PM EDT LIPID PANEL (REFLEX DIRECT LDL) Routine 11/16/2019 7:29 PM EDT BASIC METABOLIC PANEL Routine 11/16/2019 7:29 PM EDT documented in this encounter Results * Differential, Automated (11/18/2019 3:12 AM EDT) Neutrophil % 69.4 % [facility] Neutrophil Absolute 4.66 1.70 - 6.10 x10(3)/[facility] Lymph % 17.1 % [facility] Lymphocytes Abs 1.2 0.9 - 3.2 x10(3)/[facility] Monocyte % 11.5 % [facility] Monocyte Abs 0.8 0.3 - 0.9 x10(3)/[facility] Eos % 1.3 % [facility] Eosinophils Abs 0.1 0.0 - 0.4 x10(3)/[facility] Basophil % 0.4 % [facility] Baso Absolute 0.0 0.0 - 0.1 x10(3)/[facility] Immature Gran % 0.30 % [facility] Comment: Immature granulocytes(IG's)percentage and absolute count will include metamyelocytes, myelocytes, and promyelocytes. Blood smears from CBCs yielding IG's will be scanned manually for concordance. If this scan disagrees with the automated IG or if promyelocytes are noted, a manual differential will be performed. Immature Gran Absolute 0.02 0.00 - 0.04 x10(3)/[facility] Blood specimen (specimen) 11/18/2019 3:12 AM EDT 11/18/2019 3:43 AM EDT Narrative Resulting Agency Comment Spec In Lab Ruben Swenson MD HEMATOLOGY ORDERABLE S [facility] [place] [address] * Hemogram (11/18/2019 3:12 AM EDT) White Blood Cell 6.7 4.0 - 9.5 x10(3)/[facility] Red Blood Cell 4.31 4.00 - 5.21 x10(6)/[facility] Hemoglobin 13.3 11.7 - 15.5 gm/dL [facility] Hematocrit 39.4 35.7 - 45.8 % [facility] Mean Cell Volume 91.4 82.6 - 94.4 fL [facility] Mean Cell Hemoglobin 30.9 27.1 - 32.0 pg [facility] Mean Cell Hemoglobin Concentration 33.8 31.7 - 35.0 gm/dL [facility] Platelet 187 145 - 357 x10(3)/[facility] RDW Standard Deviation 41.2 37.0 - 46.0 fL [facility] RDW coefficient of variation 12.3 11.5 - 14.1 % [facility] Mean Platelet Volume 11.9 7.6 - 12.9 fL [facility] NRBC% auto 0.0 % [facility] NRBC Absolute 0.000 0.000 - 0.000 x10(3)/[facility] Blood specimen (specimen) 11/18/2019 3:12 AM EDT 11/18/2019 3:43 AM EDT Narrative Resulting Agency Comment Spec In Lab Ruben Swenson MD HEMATOLOGY ORDERABLE S Performing Organization Address City/State/RUST Co de Phone Number [facility] [place] [address] * (ABNORMAL) BMP w/fasting Glucose (11/18/2019 3:12 AM EDT) Glucose Fasting 92 65 - 99 mg/dL [facility] Comment: ?Fasting* Glucose Interpretive Criteria Normal ?65-99 mg/dL Impaired Fasting glucose ?100-125 mg/dL Consistent with Diabetes Mellitus ? >or= 126 mg/dL *Fasting is defined as no caloric intake for at least 8 hours In the absence of unequivocal hyperglycemia a plasma glucose value of >or= 126 mg/dL should be repeated on a subsequent day. Diagnosis and Classification of Diabetes Mellitus, Position Statement from the [place] [employer]. ??Diabetes Care, Volume 33, Supplement 1, Mar 2009 Blood Urea Nitrogen 19(H) 8 - 18 mg/dL [facility] Creatinine 0.93 0.70 - 1.20 mg/dL [facility] Sodium 129(L) 135 - 145 mmol/L [facility] Potassium 4.3 3.5 - 5.0 mmol/L [facility] Comment: Please note: ??Patients with WBC >100,000 may have falsely elevated Potassium levels. ??For accurate Potassium quantification in these patients send serum separator tube (gold top) for subsequent determinations. ??Contact the Clinical Chemistry Laboratory if there are any questions. Chloride 99 98 - 107 mmol/L [facility] Carbon Dioxide 22 22 - 31 mmol/L [facility] Anion Gap 8 5 - 15 mmol/L [facility] Calcium 8.9 8.5 - 10.5 mg/dL [facility] Est Glomerular Filtration Rate 59(L) >=60 mL/min/1. 73 m?? [facility] Comment: The eGFR was calculated using the CKD-EPI equation. As with all creatinine based estimates of kidney function, eGFR values calculated with the CKD-EPI equation are not accurate in patients with acute kidney failure, extremes of body mass or the acutely ill. [email or web address] eGFR 69 >=60 mL/min/1. 73 m?? [facility] Comment: The eGFR was calculated using the CKD-EPI equation. As with all creatinine based estimates of kidney function, eGFR values calculated with the CKD-EPI equation are not accurate in patients with acute kidney failure, extremes of body mass or the acutely ill. [email or web address] Blood specimen (specimen) 11/18/2019 3:12 AM EDT 11/18/2019 3:43 AM EDT Narrative Resulting Agency Comment Spec In Lab Abelino Brooke MD CHEMISTRY ORDERABLES [facility] [place] [address] * CARDIAC CATHETERIZATION (11/17/2019 12:06 PM EDT) Anatomical Region Laterality Modality Other Narrative 11/17/2019 12:14 PM EDT ?[facility] ? Cardiac Catheterization/Intervention Report ? Patient Name: Shirley, Katlyn L. ? Procedure Date: 11/17/2019 ? A #: [id number] ? Primary Physician: Izabela Emery ? Case #: [id number] ? File Name: [id number] ? Catheterization Order Number: [id number] ? [facility] ? Final Report [place], [place] ? Patient Name: ? Katlyn ZainabRamez Shirley ?ID#: ?[id number] ? : ?1940 ? Procedure Date: ? November 17, 2019 ?Case #: ? [id number] ? Room: ? 5 ? Case Physician: ? Izabela Emery M.D. ? Start: ?11:38 ?Fellow: ? German Teresa M.D. ?Admission: ??11/16/2019 ? Referring Physician: ??Gregorio Gamboa M.D. ? Procedures: ?* Coronary Angiography ?* Left Heart Catheterization ? History ?Katlyn Shirley is a 79 year old woman. She has hypertension and a ?family history of coronary artery disease. The patient's smoking status ?is Never. She has untreated hypercholesterolemia. The patient is status ?post an acute non-ST elevation myocardial infarction. She also has a ?history of cancer. Prior to the initiation of this procedure, the patient ?was designated as ASA Class III. The CSHA clinical frailty scale is 4: ?Vulnerable. ? Diagnostic Tests: ?Electrocardiography: ? EKG was assessed by ECG. EKG was Normal. ?Medications Prior to Procedure: ? Angiotensin Converting Enzyme Inhibitor, Aspirin, Beta Gregory and ? Statin. ? Indications for Diagnostic Cath: ?The priority of the diagnostic procedure was Urgent. The indication for ?the garden labourer visit is ACS less than or equal to 24 hrs. Chest pain ?symptom assessment was: Typical Angina. ? Technique: ?A 5 SLFr sheath was inserted in the right radial artery utilizing the ?Seldinger technique. The left coronary artery was injected utilizing a ?5Fr TIG 4.0 catheter. A 5Fr TIG 4.0 catheter was used to inject the right ?coronary artery. Left ventricular pressure was performed with a 5Fr TIG ?4.0 catheter. A total of 100cc of Omnipaque were opened, 35cc of ?Omnipaque were administered and 65cc of Omnipaque were wasted. Radiation: ?Fluoro time was 5.2 minutes, dose area product was 25,640 mGYcm2 and air ?kerma was 496 mGY. See the case log for additional details. ?The patient received the following medications prior to and during the ?procedure: ? Unfractionated Heparin and Clopidogrel. ? Hemodynamics: ?Left Heart Pressures ? Resting: ? Syst Diast ? EDP ?a ?v ? m ?Ao 130 ?? 56 ?86 ?LV 130 ? 17 ? Coronary Angiography: ?Dominance: Right ?Left Main ? There was a 20% single discrete stenosis of the ostial segment of ? the left main artery. ?Left Anterior Descending ? There was mild diffuse (<=25% stenosis) disease of the proximal ? segment of the left anterior descending artery (LAD). ??The mid ? segment of the LAD had mild diffuse (<=25% stenosis) disease and it ? was also calcified. ? There was mild diffuse (<=25% stenosis) disease of the mid segment ? of the second diagonal branch (Diagonal 2) of the LAD. ?Left Circumflex ? There was mild diffuse (<=25% stenosis) disease of the proximal ? segment of the left circumflex artery (LCX) and it was calcified. ? The mid segment of the LCX had mild diffuse (<=25% stenosis) ? disease. ?Right Coronary Artery ? There was mild diffuse (<=25% stenosis) disease of the entire vessel ? segment of the right coronary artery (RCA). ? Vascular Access: ?Vascular Access Management: ? Mechanical Compression of the right radial artery access site was ? performed. ? Conclusions: ?* Nonobstructive coronary artery disease ? Complications/Events: ?The patient had no complications during these procedures. ?The attending physician was present for the entire procedure. ?Dr. Izaebla Emery M.D. was present during the moderate sedation ?intraservice time as documented by the sedation nurse. ??Case time = 00:19. ?Dr. Izabela Emery M.D. performed the coronary angiography and left heart ?catheterization. ? Izabela Emery M.D. ? Electronically Signed by: Izabela Emery M.D. ? Report Finalized: 11/17/2019 ??12:10 ? Procedure Note Izabela Emery MD - 11/17/2019 [facility] Cardiac Catheterization/Intervention Report Patient Name: Shirley, Katlyn Monroy Procedure Date: 11/17/2019 A #: [id number] Primary Physician: Izabela Emery Case #: [id number] File Name: [id number] Catheterization Order Number: [id number] [facility] FinalReport [place], [place] Patient Name: Katlyn Monroy Casper ID#:[id number] :1940 Procedure Date: November 17, 2019 Case #: [id number] Room: 5 Case Physician: Izabela Emery M.D. Start: 11:38 Fellow: German Teresa M.D. Admission:11/16/2019 Referring Physician: Gregorio Gamboa M.D. Procedures: * Coronary Angiography * Left Heart Catheterization History Katlyn Shirley is a 79 year old woman. She has hypertension and a family history of coronary artery disease. The patient's smokingstatus is Never. She has untreated hypercholesterolemia. The patient isstatus post an acute non-ST elevation myocardial infarction. She also has a history of cancer. Prior to the initiation of this procedure, thepatient was designated as ASA Class III. The [facility] clinical frailty scale is4: Vulnerable. Diagnostic Tests: Electrocardiography: EKG was assessed by ECG. EKG was Normal. Medications Prior to Procedure: Angiotensin Converting Enzyme Inhibitor, Aspirin, Beta Blockerand Statin. Indications for Diagnostic Cath: The priority of the diagnostic procedure was Urgent. 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 Chest pain symptom assessment was: Typical Angina. Technique: A 5 SLFr sheath was inserted in the right radial artery utilizingthe Seldinger technique. The left coronary artery was injected utilizinga 5Fr TIG 4.0 catheter. A 5Fr TIG 4.0 catheter was used to inject theright coronary artery. Left ventricular pressure was performed with a 5FrTIG 4.0 catheter. A total of 100cc of Omnipaque were opened, 35cc of Omnipaque were administered and 65cc of Omnipaque were wasted.Radiation: Fluoro time was 5.2 minutes, dose area product was 25,640 mGYcm2 andair kerma was 496 mGY. See the case log for additional details. The patient received the following medications prior to and duringthe procedure: Unfractionated Heparin and Clopidogrel. Hemodynamics: Left Heart Pressures Resting: Syst Diast EDP a v m Ao 130 56 86 LV 130 17 Coronary Angiography: Dominance: Right Left Main There was a 20% single discrete stenosis of the ostial segmentof the left main artery. Left Anterior Descending There was mild diffuse (<=25% stenosis) disease of the proximal segment of the left anterior descending artery (LAD). The mid segment of the LAD had mild diffuse (<=25% stenosis) diseaseand it was also calcified. There was mild diffuse (<=25% stenosis) disease of the midsegment of the second diagonal branch (Diagonal 2) of the LAD. Left Circumflex There was mild diffuse (<=25% stenosis) disease of the proximal segment of the left circumflex artery (LCX) and it wascalcified. The mid segment of the LCX had mild diffuse (<=25% stenosis) disease. Right Coronary Artery There was mild diffuse (<=25% stenosis) disease of the entirevessel segment of the right coronary artery (RCA). Vascular Access: Vascular Access Management: Mechanical Compression of the right radial artery access sitewas performed. Conclusions: * Nonobstructive coronary artery disease Complications/Events: The patient had no complications during these procedures. The attending physician was present for the entire procedure. Dr. Izabela Emery M.D. was present during the moderate sedation intraservice time as documented by the sedation nurse. Case time =00:19. Dr. Izabela Emery M.D. performed the coronary angiography and leftheart catheterization. Izabela Emery M.D. Electronically Signed by: Izabela Emery M.D. Report Finalized: 11/17/2019 12:10 Izabela Emery MD CARDIAC CATH ORDERAB LES * ECHO COMPLETE (11/17/2019 10:05 AM EDT) EF 69 [employer] Anatomical Region Laterality Modality Other 11/17/2019 Narrative 11/17/2019 11:42 AM EDT Procedure: ?Transthoracic Echocardiogram Patient: ?CASPER Lamb ?(Age): 1940(79y) Med Rec#: ? [id number] ?Sex: ?F ? Site Loc: ? [facility] ?Ht / Wt: ??147(cm)/51(kg) Pt. Loc: ?CCU ? BSA: ?1.42 Study Date: ?? 11/17/2019 ?Pt. Type: Inpatient Tape: ? Referring: LAHEYMICHAELJ Referring: RUBEN SWENSON Reading: Teo Leong ([id number]) Pier Master Assistant: Zulema Bruner Interpreting Fellow: Connie Tucker ([id number]) Diagnosis: *Essential (primary) hypertension (I10) Rhythm: ? Sinus BP: ? 149/71 HR: ? 68 SUMMARY: 1. The left ventricular chamber size is normal. There is mild septal hypertrophy of the left ventricle without LVOT obstruction. ??There is normal global left ventricular systolic function with an estimated ejection fraction of 69% by biplane Vega's method. There are no left ventricular segmental wall motion abnormalities. 2. The right ventricle is normal in size and global systolic function. The estimated pulmonary artery systolic pressure is 28 mmHg (assuming RA pressure of 3 mmHg). 3. Bi-atrial size is normal. 4. There is no hemodynamically significant valve disease. ??The aortic valve is sclerotic. 5. See remainder of report for additional findings. ??There is no prior study available for comparison. Findings ? : Study Quality: ? Adequate Left Ventricle: ? The left ventricular chamber size is normal. ?There is mild septal hypertrophy of the left ventricle. ?There is no evidence of LVOT obstruction. ?No ventricular septal defect is visualized. ?There is normal global left ventricular systolic function. ?The quantitative left ventricular ejection fraction by biplane Vega's method is 69%. ?There are no left ventricular segmental wall motion abnormalities. ?Doppler assessment is consistent with elevated left sided filling pressure. Left Atrium: ? The left atrium is normal in size. ?There is no patent foramen ovale visualized. Right Ventricle: ? The right ventricle is normal in size. ?Right ventricular global systolic function is normal. ?The estimated pulmonary artery systolic pressure is 28 mmHg. Right Atrium: ? The right atrium is normal in size. Aortic Valve: ? The aortic valve is tricuspid. ?The aortic valve leaflets are mildly thickened. ?Mild aortic leaflet calcification is visualized. ?Systolic excursion of the aortic valve is normal. ?There is aortic annular calcification. ?There is no evidence of aortic valve stenosis. ?There is no evidence of aortic regurgitation. Mitral Valve: ? The mitral valve leaflets are mildly thickened. ?There is no evidence of mitral stenosis. ?There is trace mitral regurgitation present. Tricuspid Valve: ? The tricuspid valve leaflets are morphologically normal. ?The tricuspid valve leaflets are not thickened. ?There is mild (1+/4+) tricuspid regurgitation present. Pulmonic Valve: ? The pulmonic valve is not well visualized. ?There is no pulmonic stenosis present. ?There is no evidence of pulmonic regurgitation. Pericardium: ? There is no pericardial effusion. Aorta: ? The aortic root is normal in size. ?The ascending aorta was not well visualized. Pulmonary Artery: ? The main pulmonary artery appears normal. Venous: ? The inferior vena cava appears normal in size. ?There is a greater than 50% respiratory change in the inferior vena cava dimension. Misc: ? Two-dimensional echo, spectral Doppler and color Doppler performed. Chambers 2D ?Value ?Units (Range) ? IVSd (2D) ? 1.18 ? cm ? LVPWd (2D) ?1.15 ? cm ? IVS:LVPW ratio (2D) 1.03 ? ratio ? RWT (2D) ?0.7 ?ratio ? RWT PW (2D) ? 0.69 ? ratio ? LVIDd (2D) ?3.31 ? cm ? LVIDs (2D) ?1.88 ? cm ? LVIDd (2D) index ?2.33 ? cm/m2 ? LVIDs (2D) index ?1.32 ? cm/m2 ? LV FS (2D) ?43.2 ? % ? EF Teichholz (2D) ?? 75.56 ?% ? Ao root diameter (2D3.1 ?cm (2.1 - 3.6) ? Volumes/Mass ?Value ?Units (Range) ? LA Area 4 CH ?12 ? cm2 (<21) ? RA AREA 4CH ? 13 ? cm2 ? LA ESV BP (MOD) inde18.05 ?ml/m2 ? LV ESV SP 4CH (MOD) 13.6 ? ml ? LV ESV SP 2CH (MOD) 13.9 ? ml ? LV EDV BP ? 46.2 ? ml ? LV ESV BP ? 14.3 ? ml ? LV EDV BP index ? 32.45 ?ml/m2 ? LV ESV BP index ? 10.04 ?ml/m2 ? BP EF (MOD) ? 69.05 ?% ? LV mass (2D) ?119.69 ? g ? LV mass (2D) index ??84.08 ?g/m2 ? Diastolic/Systolic Function ?Value ?Units (Range) ? MV E-wave Vmax ?0.76 ? m/sec ? MV deceleration [id number] ?msec ? MV A-wave Vmax ?1.09 ? m/sec ? MV E:A ratio ?0.7 ?ratio ? LV E:e' septal ratio12.7 ? ratio ? LV E:e' lateral rati15.5 ? ratio ? Aortic Valve ?Value ?Units (Range) ? AV Vmax ? 1.5 ?m/sec ? AV VTI ?36.08 ?cm ? AV peak gradient ?8.99 ? mmHg ? AV mean gradient ?4.54 ? mmHg ? LVOT diameter ? 2.12 ? cm ? LVOT Vmax ? 0.99 ? m/sec ? LVOT VTI ?21.12 ?cm ? LVOT peak gradient ??3.94 ? mmHg ? LVOT mean gradient ??1.52 ? mmHg ? DOI (VTI) ? 0.59 ? ratio ? DOI (Vmax) ?0.66 ? ratio ? SV LVOT ? 74.24 ?ml ? JAQUELIN (continuity Vmax2.33 ? cm2 ? JAQUELIN (continuity Vmax1.64 ? cm2/m2 ? JAQUELIN (continuity VTI)2.06 ? cm ? JAQUELIN (continuity VTI)1.45 ? cm2/m2 ? Tricuspid Valve ?Value ?Units (Range) ? TR Vmax ? 2.52 ? m/sec ? TR peak gradient ?25.4 ? mmHg ? RVSP ?28 ? mmHg ? Wall Motion: Segment Name ?Rest ? Base-Anteroseptal ?? Normal ? Base-Anterior ? Normal ? Base-Anterolateral ??Normal ? Base-Posterolateral Normal ? Base-Inferior ? Normal ? Base-Inferoseptal ?? Normal ? Mid-Anteroseptal ?Normal ? Mid-Anterior ?Normal ? Mid-Anterolateral ?? Normal ? Mid-Posterolateral ??Normal ? Mid-Inferior ?Normal ? Mid-Inferoseptal ?Normal ? [place]-Septal ? Normal ? [place]-Anterior ? Normal ? [place]-Lateral ?Normal ? [place]-Inferior ? Normal ? [place]-Tip ?Normal ? This report has been electronically signed by: Teo Leong MD ? 11/17/2019 11:41:17 Images reviewed and interpretation verified [facility] Cardiac Ultrasound Laboratory Procedure Note Teo Leong MD - 11/17/2019 Procedure: Transthoracic Echocardiogram Patient: CASPER DERAS(Age): 1940(79y) Med Rec#: [id number] Sex: F Site Loc: [facility] Ht / Wt: 147(cm)/51(kg) Pt. Loc: CCU BSA: 1.42 Study Date: 11/17/2019 Pt. Type: Inpatient Tape: Referring: FROYLANRUPALIDWAINE Referring: RUBEN SWENSON Reading: Teo Leong ([id number]) Pier Master Assistant: Zulema Bruner Interpreting Fellow: Connie Tucker ([id number]) Diagnosis: *Essential (primary) hypertension (I10) Rhythm: Sinus BP: 149/71 HR: 68 SUMMARY: 1. The left ventricular chamber size is normal. There is mild septal hypertrophy of the left ventricle without LVOT obstruction. There is normal global left ventricular systolic function with an estimated ejection fraction of 69% by biplane Vega's method. There are no left ventricular segmental wall motion abnormalities. 2. The right ventricle is normal in size and global systolic function. The estimated pulmonary artery systolic pressure is 28 mmHg (assuming RA pressure of 3 mmHg). 3. Bi-atrial size is normal. 4. There is no hemodynamically significant valve disease. The aortic valve is sclerotic. 5. See remainder of report for additional findings. There is no prior study available for comparison. Findings : Study Quality: Adequate Left Ventricle: The left ventricular chamber size is normal. There is mild septal hypertrophy of the left ventricle. There is no evidence of LVOT obstruction. No ventricular septal defect is visualized. There is normal global left ventricular systolic function. The quantitative left ventricular ejection fraction by biplane Vega's method is 69%. There are no left ventricular segmental wall motion abnormalities. Doppler assessment is consistent with elevated left sided filling pressure. Left Atrium: The left atrium is normal in size. There is no patent foramen ovale visualized. Right Ventricle: The right ventricle is normal in size. Right ventricular global systolic function is normal. The estimated pulmonary artery systolic pressure is 28 mmHg. Right Atrium: The right atrium is normal in size. Aortic Valve: The aortic valve is tricuspid. The aortic valve leaflets are mildly thickened. Mild aortic leaflet calcification is visualized. Systolic excursion of the aortic valve is normal. There is aortic annular calcification. There is no evidence of aortic valve stenosis. There is no evidence of aortic regurgitation. Mitral Valve: The mitral valve leaflets are mildly thickened. There is no evidence of mitral stenosis. There is trace mitral regurgitation present. Tricuspid Valve: The tricuspid valve leaflets are morphologically normal. The tricuspid valve leaflets are not thickened. There is mild (1+/4+) tricuspid regurgitation present. Pulmonic Valve: The pulmonic valve is not well visualized. There is no pulmonic stenosis present. There is no evidence of pulmonic regurgitation. Pericardium: There is no pericardial effusion. Aorta: The aortic root is normal in size. The ascending aorta was not well visualized. Pulmonary Artery: The main pulmonary artery appears normal. Venous: The inferior vena cava appears normal in size. There is a greater than 50% respiratory change in the inferior vena cava dimension. Misc: Two-dimensional echo, spectral Doppler and color Doppler performed. Chambers 2D Value Units (Range) IVSd (2D) 1.18 cm LVPWd (2D) 1.15 cm IVS:LVPW ratio (2D) 1.03 ratio RWT (2D) 0.7 ratio RWT PW (2D) 0.69 ratio LVIDd (2D) 3.31 cm LVIDs (2D) 1.88 cm LVIDd (2D) index 2.33 cm/m2 LVIDs (2D) index 1.32 cm/m2 LV FS (2D) 43.2 % EF Teichholz (2D) 75.56 % Ao root diameter (2D3.1 cm (2.1 - 3.6) Volumes/Mass Value Units (Range) LA Area 4 CH 12 cm2 (<21) RA AREA 4CH 13 cm2 LA ESV BP (MOD) inde18.05 ml/m2 LV ESV SP 4CH (MOD) 13.6 ml LV ESV SP 2CH (MOD) 13.9 ml LV EDV BP 46.2 ml LV ESV BP 14.3 ml LV EDV BP index 32.45 ml/m2 LV ESV BP index 10.04 ml/m2 BP EF (MOD) 69.05 % LV mass (2D) 119.69 g LV mass (2D) index 84.08 g/m2 Diastolic/Systolic Function Value Units (Range) MV E-wave Vmax 0.76 m/sec MV deceleration [id number] msec MV A-wave Vmax 1.09 m/sec MV E:A ratio 0.7 ratio LV E:e' septal ratio12.7 ratio LV E:e' lateral rati15.5 ratio Aortic Valve Value Units (Range) AV Vmax 1.5 m/sec AV VTI 36.08 cm AV peak gradient 8.99 mmHg AV mean gradient 4.54 mmHg LVOT diameter 2.12 cm LVOT Vmax 0.99 m/sec LVOT VTI 21.12 cm LVOT peak gradient 3.94 mmHg LVOT mean gradient 1.52 mmHg DOI (VTI) 0.59 ratio DOI (Vmax) 0.66 ratio SV LVOT 74.24 ml JAQUELIN (continuity Vmax2.33 cm2 JAQUELIN (continuity Vmax1.64 cm2/m2 JAQUELIN (continuity VTI)2.06 cm JAQUELIN (continuity VTI)1.45 cm2/m2 Tricuspid Valve Value Units (Range) TR Vmax 2.52 m/sec TR peak gradient 25.4 mmHg RVSP 28 mmHg Wall Motion: Segment Name Rest Base-Anteroseptal Normal Base-Anterior Normal Base-Anterolateral Normal Base-Posterolateral Normal Base-Inferior Normal Base-Inferoseptal Normal Mid-Anteroseptal Normal Mid-Anterior Normal Mid-Anterolateral Normal Mid-Posterolateral Normal Mid-Inferior Normal Mid-Inferoseptal Normal [place]-Septal Normal [place]-Anterior Normal [place]-Lateral Normal [place]-Inferior Normal [place]-Tip Normal This report has been electronically signed by: Teo Leong MD 11/17/2019 11:41:17 Images reviewed and interpretation verified [facility] Cardiac Ultrasound Laboratory Ruben Swenson MD ECHO ORDERABLES * Heparin (unfractionated) Level (11/17/2019 7:56 AM EDT) UF Heparin 0.26 IU/mL [facility] Comment: Guidelines for therapeutic unfractionated heparin levels are summarized below. Heparin (Anti-Xa) levels should be determined in a plasma sample that has been drawn 6 hours after a dose change i.e., steady-state has been reached. DRUG ?Dosing Schedule ? Target Peak Steady-State ?Heparin (Anti-Xa) Levels (Units/mL) Unfractionated ?Continuous infusion ?0.3-0.7 Heparin ?0.3-0.6 for some neurology indications Blood specimen (specimen) 11/17/2019 7:56 AM EDT 11/17/2019 8:19 AM EDT Narrative Resulting Agency Comment Spec In Lab Abelino Brooke MD HEMATOLOGY ORDERABLE S [facility] [place] [address] * (ABNORMAL) Troponin (11/17/2019 7:56 AM EDT) Troponin-T 0.07(H) 0.00 - 0.00 ng/mL [facility] Comment: The 99th percentile for Troponin T is less than 0.01 ng/mL, any detectable cTnT concentration using this assay should be considered elevated. According to the third universal definition of myocardial infarction the following criteria with a clinical presentation consistent with acute myocardial ischemia meets the diagnosis for a myocardial infarction ([place]). Detection of a rise and/or fall of cTnT, with at least one value greater than the 99th percentile (> or = 0.01) and with at least one of the following ?? Symptoms of ischemia ?? New or presumed new significant ZL-ytrwdsc-M wave (ST-T) changes or new left bundle branch block (LBBB) ?? Development of pathologic Q waves in the ECG ?? Imaging evidence of new loss of viable myocardium or new regional wall motion abnormality ?? Identification of an intracoronary thrombus by angiography or autopsy Samples for cTnT testing should be obtained serially upon first assessment and again 3 to 6 hours later. If the clinical suspicion is high and previous samples have been negative an additional sample may be indicated. Reference: Third [place] Definition of Myocardial Infarction. Journal of the [place] [employer] 2012;60:1581-98 Blood specimen (specimen) 11/17/2019 7:56 AM EDT 11/17/2019 8:19 AM EDT Narrative Resulting Agency Comment Spec In Lab Ruben Swenson MD CHEMISTRY ORDERABLES [facility] [place] [address] * Heparin (unfractionated) Level (11/17/2019 1:32 AM EDT) UF Heparin 0.33 IU/mL [facility] Comment: Guidelines for therapeutic unfractionated heparin levels are summarized below. Heparin (Anti-Xa) levels should be determined in a plasma sample that has been drawn 6 hours after a dose change i.e., steady-state has been reached. DRUG ?Dosing Schedule ? Target Peak Steady-State ?Heparin (Anti-Xa) Levels (Units/mL) Unfractionated ?Continuous infusion ?0.3-0.7 Heparin ?0.3-0.6 for some neurology indications Blood specimen (specimen) 11/17/2019 1:32 AM EDT 11/17/2019 1:37 AM EDT Narrative Resulting Agency Comment Spec In Lab Ruben Swenson MD HEMATOLOGY ORDERABLE S Performing Organization Address City/[facility]/ZIP Co de Phone Number [facility] [place] [address] * (ABNORMAL) Differential, Automated (11/17/2019 1:32 AM EDT) Neutrophil % 89.3 % [facility] Neutrophil Absolute 8.75(H) 1.70 - 6.10 x10(3)/mc L [facility] Lymph % 4.8 % [facility] Lymphocytes Abs 0.5(L) 0.9 - 3.2 x10(3)/mc L [facility] Monocyte % 5.2 % [facility] Monocyte Abs 0.5 0.3 - 0.9 x10(3)/mc L [facility] Eos % 0.0 % [facility] Eosinophils Abs 0.0 0.0 - 0.4 x10(3)/mc L [facility] Basophil % 0.2 % [facility] Baso Absolute 0.0 0.0 - 0.1 x10(3)/mc L [facility] Immature Gran % 0.50 % [facility] Comment: Immature granulocytes(IG's)percentage and absolute count will include metamyelocytes, myelocytes, and promyelocytes. Blood smears from CBCs yielding IG's will be scanned manually for concordance. If this scan disagrees with the automated IG or if promyelocytes are noted, a manual differential will be performed. Immature Gran Absolute 0.05(H) 0.00 - 0.04 x10(3)/mc L [facility] Blood specimen (specimen) 11/17/2019 1:32 AM EDT 11/17/2019 1:37 AM EDT Narrative Resulting Agency Comment Spec In Lab Ruben Swneson MD HEMATOLOGY ORDERABLE S Performing Organization Address City/[facility]/ZIP Co de Phone Number [facility] [place] [address] * (ABNORMAL) Hemogram (11/17/2019 1:32 AM EDT) White Blood Cell 9.8(H) 4.0 - 9.5 x10(3)/ L [facility] Red Blood Cell 4.43 4.00 - 5.21 x10(6)/mc L [facility] Hemoglobin 13.5 11.7 - 15.5 gm/dL [facility] Hematocrit 40.6 35.7 - 45.8 % [facility] Mean Cell Volume 91.6 82.6 - 94.4 fL [facility] Mean Cell Hemoglobin 30.5 27.1 - 32.0 pg [facility] Mean Cell Hemoglobin Concentration 33.3 31.7 - 35.0 gm/dL [facility] Platelet 206 145 - 357 x10(3)/[facility] RDW Standard Deviation 40.9 37.0 - 46.0 fL [facility] RDW coefficient of variation 12.1 11.5 - 14.1 % [facility] Mean Platelet Volume 11.1 7.6 - 12.9 fL [facility] NRBC% auto 0.0 % [facility] NRBC Absolute 0.000 0.000 - 0.000 x10(3)/[facility] Blood specimen (specimen) 11/17/2019 1:32 AM EDT 11/17/2019 1:37 AM EDT Narrative Resulting Agency Comment Spec In Lab Ruben Swenson MD HEMATOLOGY ORDERABLE S [facility] [place] [address] * (ABNORMAL) Troponin (11/17/2019 1:32 AM EDT) Troponin-T 0.12(H) 0.00 - 0.00 ng/mL [facility] Comment: The 99th percentile for Troponin T is less than 0.01 ng/mL, any detectable cTnT concentration using this assay should be considered elevated. According to the third universal definition of myocardial infarction the following criteria with a clinical presentation consistent with acute myocardial ischemia meets the diagnosis for a myocardial infarction ([place]). Detection of a rise and/or fall of cTnT, with at least one value greater than the 99th percentile (> or = 0.01) and with at least one of the following ?? Symptoms of ischemia ?? New or presumed new significant XP-gsgoswj-G wave (ST-T) changes or new left bundle branch block (LBBB) ?? Development of pathologic Q waves in the ECG ?? Imaging evidence of new loss of viable myocardium or new regional wall motion abnormality ?? Identification of an intracoronary thrombus by angiography or autopsy Samples for cTnT testing should be obtained serially upon first assessment and again 3 to 6 hours later. If the clinical suspicion is high and previous samples have been negative an additional sample may be indicated. Reference: Third [place] Definition of Myocardial Infarction. Journal of the [place] [employer] 2012;60:1581-98 Blood specimen (specimen) 11/17/2019 1:32 AM EDT 11/17/2019 1:37 AM EDT Narrative Resulting Agency Comment Spec In Lab Ruben Swenson MD CHEMISTRY ORDERABLES [facility] [place] [address] * COVID-19 PCR (11/16/2019 11:45 PM EDT) SARS-CoV-2 RNA (Rapid) Not Detected Not Detected [facility] Comment: This result should be interpreted in combination with the clinical observations, patient history and epidemiological information. For testing of asymptomatic individuals, assay performance characteristics and clinical utility have not been evaluated. Testing for SARS-CoV-2 (Severe acute respiratory syndrome coronavirus 2, formerly known as 2019 novel coronavirus or 2019-nCoV) to aid in the diagnosis of COVID-19 is performed using the Simplexa COVID-19 Direct Assay by [employer] as authorized by the FDA issued Emergency Use Authorization (EUA). This assay is intended for In-vitro Diagnostic (IVD) use with nasopharyngeal swabs collected from individuals meeting the CDC criteria for testing. The assay is performed based on the instructions for use and additional guidance provided by the FDA. Testing is performed in the Microbiology Laboratory within the Department of Pathology and Laboratory Medicine at [facility], certified under the Clinical Laboratory Improvement Amendments of 1988 (CLIA), 42 U.S.C. section 263a, to perform high complexity tests. Assay performance has been verified according to clinical laboratory regulatory requirements. Test results are provided above. A result of Not Detected indicates that the viral RNA target is not present but does not preclude SARS-CoV-2 infection. False negative results may occur if a specimen is improperly collected, transported or handled; if amplification inhibitors are present; or if inadequate numbers of viral particles are present in the specimen. A result of Detected suggests a current or recent infection and the patient is presumed to be infected. Positive and negative predictive values for this test are highly dependent on disease prevalence. A result of Invalid indicates the inability to conclusively determine the presence or absence of SARS-CoV-2 RNA in the sample which can be due to a variety of factors. Recollection is recommended in the case of an invalid result. CDC COVID-19 criteria for testing on human specimens and clinical management guidance information are available at the CDC Coronavirus Disease 2019 (COVID-19) webpage under Information for Healthcare Professionals (https://www.cdc.gov/coronavirus/2019-ncov/hcp/index.html). SARS-CoV-2 Source [employer] [facility] Nasopharyngeal swab (specimen) 11/16/2019 11:45 PM EDT 11/17/2019 12:17 AM EDT Comment:Symptoms->Surveillan ce Narrative Resulting Agency Comment Spec In Lab Ruben Swenson MD MICROBIOLOGY - GENER AL ORDERABLES [facility] [place] [address] * EKG 12 Lead (11/16/2019 7:47 PM EDT) Ventricular rate 88 BPM MUSE SYSTEM Atrial Rate 88 BPM MUSE SYSTEM P-R Interval 164 ms MUSE SYSTEM QRS Duration 82 ms MUSE SYSTEM Q-T Interval 400 ms MUSE SYSTEM QTC Calculated (Bezet) 484 ms MUSE SYSTEM Calculated P [place] 48 degrees MUSE SYSTEM Calculated R [place] 52 degrees MUSE SYSTEM Calculated T [place] 70 degrees MUSE SYSTEM INTERPRETATION Normal sinus rhythm Normal ECG No previous ECGs available Confirmed by MD Rodney, Norman ([id number]) on 11/17/2019 6:56:04 AM MUSE SYSTEM 11/16/2019 7:47 PM EDT 11/17/2019 6:56 AM EDT Ruben Swenson MD ECG ORDERABLES MUSE SYSTEM * (ABNORMAL) Differential, Automated (11/16/2019 7:29 PM EDT) Neutrophil % 88.1 % [facility] Neutrophil Absolute 8.43(H) 1.70 - 6.10 x10(3)/mc L [facility] Lymph % 6.3 % [facility] Lymphocytes Abs 0.6(L) 0.9 - 3.2 x10(3)/ L [facility] Monocyte % 5.1 % [facility] Monocyte Abs 0.5 0.3 - 0.9 x10(3)/ L [facility] Eos % 0.0 % [facility] Eosinophils Abs 0.0 0.0 - 0.4 x10(3)/ L [facility] Basophil % 0.3 % [facility] Baso Absolute 0.0 0.0 - 0.1 x10(3)/mc L [facility] Immature Gran % 0.20 % [facility] Comment: Immature granulocytes(IG's)percentage and absolute count will include metamyelocytes, myelocytes, and promyelocytes. Blood smears from CBCs yielding IG's will be scanned manually for concordance. If this scan disagrees with the automated IG or if promyelocytes are noted, a manual differential will be performed. Immature Gran Absolute 0.02 0.00 - 0.04 x10(3)/mc L [facility] Blood specimen (specimen) 11/16/2019 7:29 PM EDT 11/16/2019 7:43 PM EDT Narrative Resulting Agency Comment Spec In Lab Ruben Swenson MD HEMATOLOGY ORDERABLE S [facility] [place] [address] * (ABNORMAL) Hemogram (11/16/2019 7:29 PM EDT) White Blood Cell 9.6(H) 4.0 - 9.5 x10(3)/mc L [facility] Red Blood Cell 4.83 4.00 - 5.21 x10(6)/mc L [facility] Hemoglobin 14.8 11.7 - 15.5 gm/dL [facility] Hematocrit 43.7 35.7 - 45.8 % [facility] Mean Cell Volume 90.5 82.6 - 94.4 fL [facility] Mean Cell Hemoglobin 30.6 27.1 - 32.0 pg [facility] Mean Cell Hemoglobin Concentration 33.9 31.7 - 35.0 gm/dL [facility] Platelet 204 145 - 357 x10(3)/mc L [facility] RDW Standard Deviation 40.0 37.0 - 46.0 [facility] RDW coefficient of variation 12.2 11.5 - 14.1 % [facility] Mean Platelet Volume 11.7 7.6 - 12.9 [facility] NRBC% auto 0.0 % [facility] NRBC Absolute 0.000 0.000 - 0.000 x10(3)/mc L [facility] Blood specimen (specimen) 11/16/2019 7:29 PM EDT 11/16/2019 7:43 PM EDT Narrative Resulting Agency Comment Spec In Lab Ruben Swenson MD HEMATOLOGY ORDERABLE S [facility] [place] [address] * (ABNORMAL) Troponin (11/16/2019 7:29 PM EDT) Pathologist [facility] Troponin-T 0.09(H) 0.00 - 0.00 ng/mL [facility] Comment: The 99th percentile for Troponin T is less than 0.01 ng/mL, any detectable cTnT concentration using this assay should be considered elevated. According to the third universal definition of myocardial infarction the following criteria with a clinical presentation consistent with acute myocardial ischemia meets the diagnosis for a myocardial infarction ([place]). Detection of a rise and/or fall of cTnT, with at least one value greater than the 99th percentile (> or = 0.01) and with at least one of the following ?? Symptoms of ischemia ?? New or presumed new significant QQ-fqkmzws-T wave (ST-T) changes or new left bundle branch block (LBBB) ?? Development of pathologic Q waves in the ECG ?? Imaging evidence of new loss of viable myocardium or new regional wall motion abnormality ?? Identification of an intracoronary thrombus by angiography or autopsy Samples for cTnT testing should be obtained serially upon first assessment and again 3 to 6 hours later. If the clinical suspicion is high and previous samples have been negative an additional sample may be indicated. Reference: Third [place] Definition of Myocardial Infarction. Journal of the [place] [employer] 2012;60:1581-98 Blood specimen (specimen) 11/16/2019 7:29 PM EDT 11/16/2019 7:43 PM EDT Narrative Resulting Agency Comment Spec In Lab Ruben Swenson MD CHEMISTRY ORDERABLES [facility] [place] [address] * Hemoglobin A1c (11/16/2019 7:29 PM EDT) [facility] Hemoglobin A1c 5.6 4.3 - 5.6 % [facility] Comment: Reference Range: 4.3 - 5.6% 5.7 - 6.4% - Increased Risk of Developing Diabetes Mellitus >= 6.5% - Consistent with diagnosis of Diabetes Mellitus In the absence of hyperglycemia (i.e. plasma glucose > 200 mg/dL) or classic symptoms of hyperglycemia a repeat measurement of HbA1c should be performed on a separate sample to confirm the diagnosis. Diagnosis and Classification of Diabetes Mellitus, Diabetes Care 2013; 36: Suppl. 1, S67-74 Estimated Average Glucose See note mg/dL [facility] Comment: Estimated Average Glucose not appropriate for patients over 70 years of age. eAG equivalents for HbA1c percentages: HbA1c(%) ?eAG(mg/dL) 6.0 ?126 6.5 ?140 7.0 ?154 7.5 ?169 8.0 ?183 8.5 ?197 9.0 ?212 9.5 ?226 10.0 ? 240 Limitations: The eAG calculation has not been validated on women, individuals below 18 years old and above 70 years old, and individuals with hemoglobinopathies. Additional resources are available on the ADA website. Sami ROMERO, Jam J, Sid R, et al. ??Translating the A1C assay into estimated average glucose values. ??Diabetes Care 2008:31(8):0524-8443. Blood specimen (specimen) 11/16/2019 7:29 PM EDT 11/16/2019 7:43 PM EDT Narrative Resulting Agency Comment Spec In Lab Ruben Swenson MD CHEMISTRY ORDERABLES [facility] [place] [address] * Lipid Panel (Reflex Direct LDL) (11/16/2019 7:29 PM EDT) Cholesterol, Total 209 mg/dL [facility] Comment: Lower Risk: <200 mg/dL Average Risk: 200-239 mg/dL Higher Risk: >cz=088 mg/dL Triglyceride 48 mg/dL [facility] Comment: Average Risk/Lower Risk: <150 mg/dL Borderline High Risk: 150-199 mg/dL High Risk: 200-499 mg/dL Very High Risk: >np=959 mg/dL HDL Cholesterol 91 mg/dL [facility] Comment: Males: ?? Higher Risk: <40 mg/dL Females: ?? HIgher Risk: <50 mg/dL LDL Cholesterol 108 mg/dL [facility] Comment: Lowest Risk: <100 mg/dL Lower Risk: 100-129 mg/dL Borderline High Risk: 130-159 mg/dL High Risk: 160-189 mg/dL Very High Risk: >ky=283 mg/dL Cholesterol/HDL Ratio 2.3 ratio [facility] Lipid Interpretation See Note [facility] Comment: Lipid management should be guided by a patient? s ASCVD risk, goals and preferences. ACC/AHA Guidelines recommend high intensity statin if clinical ASCVD or LDL greater than or equal to 190 mg/dL. [email or web address] Adults aged 40-75 with LDL 70-189 mg/dL should have their 10 year ASCVD risk estimated with the ACC/AHA ASCVD risk insulation estimator http://tools.acc.org/YIDUV-Hhoa-Ylxqhwpoa/ Statin should be discussed if risk greater than or equal to 7.5% in non-diabetics. With diabetes, moderate intensity statin is recommended if risk less than 7.5%, high intensity if risk greater than or equal to 7.5%. Annual lipid monitoring on statins is not necessary. Evaluate secondary causes of Triglycerides greater than 500 mg/dL or LDL greater than 190 mg/dL: See table 6 of ACC/AHA Guideline. Lifestyle modification is a critical component of ASCVD risk reduction. Blood specimen (specimen) 11/16/2019 7:29 PM EDT 11/16/2019 7:43 PM EDT Narrative Resulting Agency Comment Spec In Lab Ruben Swenson MD CHEMISTRY ORDERABLES [facility] [place] [address] * Hepatic Function Panel (11/16/2019 7:29 PM EDT) [facility] Protein, Total 7.3 6.1 - 8.0 gm/dL [facility] Albumin 4.4 3.2 - 5.2 gm/dL [facility] Aspartate Aminotransferase 29 0 - 30 unit/L [facility] Alanine Aminotransferase 16 0 - 30 unit/L [facility] Alkaline Phosphatase 60 35 - 105 unit/L [facility] Bilirubin, Total 0.6 0.2 - 1.3 mg/dL [facility] Bilirubin, Direct 0.1 0.0 - 0.3 mg/dL [facility] Blood specimen (specimen) 11/16/2019 7:29 PM EDT 11/16/2019 7:43 PM EDT Narrative Resulting Agency Comment Spec In Lab Ruben Swenson MD CHEMISTRY ORDERABLES Performing Organization Address City/[facility]/ZIP Co de Phone Number [facility] [place] [address] * (ABNORMAL) pro-Brain Natriuretic Peptide (11/16/2019 7:29 PM EDT) [facility] NT-proBNP 2,621(H) <=450 pg/mL [facility] Blood specimen (specimen) 11/16/2019 7:29 PM EDT 11/16/2019 7:43 PM EDT Narrative Resulting Agency Comment Spec In Lab Ruben Swenson MD CHEMISTRY ORDERABLES Performing Organization Address City/[facility]/ZIP Co de Phone Number [facility] [place] [address] * TSH (11/16/2019 7:29 PM EDT) [facility] Thyroid Stimulating Hormone 3.01 0.27 - 4.20 mcIU/mL [facility] Blood specimen (specimen) 11/16/2019 7:29 PM EDT 11/16/2019 7:43 PM EDT Narrative Resulting Agency Comment Spec In Lab Ruben Swenson MD CHEMISTRY ORDERABLES Performing Organization Address [facility]/[place] Co de Phone Number [facility] [place] [address] * (ABNORMAL) Phosphorus (11/16/2019 7:29 PM EDT) Phosphorus 2.1(L) 2.5 - 4.5 mg/dL [facility] Blood specimen (specimen) 11/16/2019 7:29 PM EDT 11/16/2019 7:43 PM EDT Narrative Resulting Agency Comment Spec In Lab Ruben Swenson MD CHEMISTRY ORDERABLES Performing Organization Address [facility]/[place] Co de Phone Number [facility] [place] [address] * Magnesium (11/16/2019 7:29 PM EDT) Magnesium 0.74 0.69 - 1.07 mmol/L [facility] Blood specimen (specimen) 11/16/2019 7:29 PM EDT 11/16/2019 7:43 PM EDT Narrative Resulting Agency Comment Spec In Lab Ruben Swenson MD CHEMISTRY ORDERABLES Performing Organization Address [facility]/[place] Co de Phone Number [facility] [place] [address] * (ABNORMAL) Basic Metabolic Panel (non-fasting) (11/16/2019 7:29 PM EDT) Glucose 114 65 - 199 mg/dL [facility] Comment:Diabetes: >=200 mg/d L plus symptoms Blood Urea Nitrogen 15 8 - 18 mg/dL [facility] Creatinine 0.89 0.70 - 1.20 mg/dL [facility] Sodium 132(L) 135 - 145 mmol/L [facility] Potassium 4.0 3.5 - 5.0 mmol/L [facility] Comment: Please note: ??Patients with WBC >100,000 may have falsely elevated Potassium levels. ??For accurate Potassium quantification in these patients send serum separator tube (gold top) for subsequent determinations. ??Contact the Clinical Chemistry Laboratory if there are any questions. Chloride 96(L) 98 - 107 mmol/L [facility] Carbon Dioxide 20(L) 22 - 31 mmol/L [facility] Anion Gap 16(H) 5 - 15 mmol/L [facility] Calcium 9.3 8.5 - 10.5 mg/dL [facility] Est Glomerular Filtration Rate 63 >=60 mL/min/1. 73 m?? [facility] Comment: The eGFR was calculated using the CKD-EPI equation. As with all creatinine based estimates of kidney function, eGFR values calculated with the CKD-EPI equation are not accurate in patients with acute kidney failure, extremes of body mass or the acutely ill. [email or web address] eGFR 72 >=60 mL/min/1. 73 m?? [facility] Comment: The eGFR was calculated using the CKD-EPI equation. As with all creatinine based estimates of kidney function, eGFR values calculated with the CKD-EPI equation are not accurate in patients with acute kidney failure, extremes of body mass or the acutely ill. [email or web address] Blood specimen (specimen) 11/16/2019 7:29 PM EDT 11/16/2019 7:43 PM EDT Narrative Resulting Agency Comment Spec In Lab Ruben Swenson MD CHEMISTRY ORDERABLES [facility] [place] [address] * Heparin (unfractionated) Level (11/16/2019 7:29 PM EDT) UF Heparin 0.40 IU/mL [facility] Comment: Specimen drawn more than one hour prior to testing. Results may not be reliable for heparin monitoring. Result may be falsely low. Guidelines for therapeutic unfractionated heparin levels are summarized below. Heparin (Anti-Xa) levels should be determined in a plasma sample that has been drawn 6 hours after a dose change i.e., steady-state has been reached. DRUG ?Dosing Schedule ? Target Peak Steady-State ?Heparin (Anti-Xa) Levels (Units/mL) Unfractionated ?Continuous infusion ?0.3-0.7 Heparin ?0.3-0.6 for some neurology indications Blood specimen (specimen) 11/16/2019 7:29 PM EDT 11/16/2019 7:43 PM EDT Narrative Resulting Agency Comment Spec In Lab Ruben Swenson MD HEMATOLOGY ORDERABLE S Performing Organization Address City/State/[place] Co de Phone Number [facility] [place] [address] documented in this encounter Visit Diagnoses Not on filedocumented in this encounter Admitting Diagnoses Diagnosis NSTEMI (non-ST elevated myocardial infarction) Acute myocardial infarction, subendocardial infarction, episode of care unspecified documented in this encounter Administered Medications Inactive Administered Medications - up to 3 most recent administrations Medication Order MAR Action Action Date Dose Rate Site aspirin EC tablet 81 mg 81 mg, Oral, DAILY, First dose on Sat11/17/19 at 0900, Until Discontinued, Routine Given 11/18/2019 8:10 AM EDT 81 mg Given 11/17/2019 9:12 AM EDT 81 mg atorvastatin (Lipitor) tablet 40 mg 40 mg, Oral, EVERY EVENING, First dose on Sat11/16/19 at 2000, Until Discontinued, Routine Given 11/18/2019 5:32 PM EDT 40 mg Given 11/17/2019 5:29 PM EDT 40 mg Given 11/16/2019 7:41 PM EDT 40 mg calcium citrate (Calcitrate) tablet 950 mg 950 mg, Oral, DAILY, First dose on Sat11/17/19 at 0900, Until Discontinued Given 11/18/2019 8:11 AM EDT 950 mg Given 11/17/2019 9:11 AM EDT 950 mg citalopram (CeleXA) tablet 10 mg 10 mg, Oral, DAILY, First dose on Sat11/17/19 at 0900, Until Discontinued, Routine Given 11/18/2019 8:10 AM EDT 10 mg Given 11/17/2019 9:13 AM EDT 10 mg clopidogreL (Plavix) tablet ONCE PRN, Starting on Sat11/17/19 at 1136, Until Sat11/17/19 at 1206, Intra-Operative (Intra-Procedure), Routine Given 11/17/2019 11:36 AM EDT 75 mg fentaNYL 50 mcg/mL multi-dose injection ONCE PRN, Starting on Sat11/17/19 at 1139, Until Sat11/17/19 at 1206, Intra-Operative (Intra-Procedure), Routine Given 11/17/2019 11:39 AM EDT 12.5 mcg iohexoL (OMNIPAQUE) 350 mg/mL solution ONCE PRN, Starting on Sat11/17/19 at 1203, Until Sat11/17/19 at 1206, Cath (Intra-Procedure), Routine Given 11/17/2019 12:03 PM EDT 35 mLs lidocaine (XYLOCAINE) 10 mg/mL (1 %) injection ONCE PRN, Starting on Sat11/17/19 at 1134, Until Sat11/17/19 at 1206, Cath (Intra-Procedure), Routine Given 11/17/2019 11:34 AM EDT 5 mLs lisinopriL (Prinivil;Zestril) tablet 10 mg 10 mg, Oral, DAILY, First dose on Sat11/17/19 at 0900, Until Discontinued, Routine Given 11/18/2019 8:11 AM EDT 10 mg Given 11/17/2019 9:13 AM EDT 10 mg melatonin tablet 6 mg 6 mg, Oral, NIGHTLY PRN, Starting on Sat11/17/19 at 2159, Until Sat11/18/19 at 2102, sleep, Routine Given 11/17/2019 10:11 PM EDT 3 mg metoprolol tartrate (Lopressor) tablet 25 mg 25 mg, Oral, EVERY 12 HOURS SCHEDULED, First dose on Sat11/16/19 at 2100, Until Discontinued, Hold for SBP less than 90 mmHG or HR less than 60 beats per minute, Routine Given 11/18/2019 6:28 PM EDT 25 mg Given 11/18/2019 8:10 AM EDT 25 mg Given 11/17/2019 8:49 PM EDT 25 mg midazolam (PF) (VERSED) multi-dose injection ONCE PRN, Starting on Sat11/17/19 at 1139, Until Sat11/17/19 at 1206, Cath (Intra-Procedure), Routine Given 11/17/2019 11:39 AM EDT 0.5 mg nitroGLYcerin (Nitrostat) disintegrating tablet 0.4 mg 0.4 mg, Sublingual, EVERY 5 MIN PRN, Starting on Sat11/17/19 at 1216, Until Sat11/18/19 at 2102, Chest pain, May repeat every 5 minutes for a total of three doses. Notify provider if chest pain not relieved with nitroglycerin. Do not administer nitroglycerin if the patient has received or taken phosphodiesterase (PDE-5) inhibitors such as sildenafil, tadalafil or vardenafil within the last 24 to 72 hours., Recovery (Recovery-Hospital Unit), Routine nitroGLYcerin 100 mcg/mL intracoronary dilution ONCE PRN, Starting on Sat11/17/19 at 1142, Until Sat11/17/19 at 1206, Cath (Intra-Procedure), Routine Given 11/17/2019 11:42 AM EDT 100 mcg pantoprazole EC (Protonix) tablet 40 mg 40 mg, Oral, DAILY, First dose on Sat11/17/19 at 0900, Until Discontinued Given 11/18/2019 8:11 AM EDT 40 mg Given 11/17/2019 9:14 AM EDT 40 mg sodium chloride 0.9 % (flush) flush 5 mL 5 mL, Intravenous, 2 TIMES DAILY, First dose on Sat11/16/19 at 2100, Until Discontinued, Routine Given 11/18/2019 8:13 AM EDT 5 mLs Given 11/17/2019 8:54 PM EDT 5 mLs Given 11/17/2019 9:00 AM EDT 5 mLs sodium chloride 0.9 % (flush) flush 5 mL 5 mL, Intravenous, 2 TIMES DAILY, First dose on Sat11/16/19 at 2100, Until Discontinued, Routine Given 11/18/2019 8:13 AM EDT 5 mLs Given 11/17/2019 8:53 PM EDT 5 mLs Given 11/16/2019 8:48 PM EDT 5 mLs sodium chloride 0.9% infusion CONTINUOUS PRN, Starting on Sat11/17/19 at 1121, Until Sat11/17/19 at 1206, Cath (Intra-Procedure) New Bag 11/17/2019 11:21 AM EDT 30 mL/hr 30 mL/hr verapamiL (ISOPTIN) injection ONCE PRN, Starting on Sat11/17/19 at 1141, Until Sat11/17/19 at 1206, Administer over 2 Minutes, Cath (Intra-Procedure) Given 11/17/2019 11:41 AM EDT 2 mg documented in this encounter Active and Recently Administered Medications Times are shown in EDT. Scheduled Medication Order 11/16/2019 11/17/2019 11/18/2019 amLODIPine (Norvasc) tablet 5 mg (CANCELED) 5 mg, Oral, NIGHTLY, First dose on Sat11/16/19 at 2200, Until Discontinued, Routine 2132 (Given - Provider: Melony Crews RN) 1106 ([facility] Hold - Provider: Admin Adt - Reason: Transfer to a Procedural area)1313 ([facility] Unhold - Provider: Admin Adt)2048 (Given - Provider: Melony Crews RN) aspirin EC tablet 81 mg 81 mg, Oral, DAILY, First dose on Sat11/17/19 at 0900, Until Discontinued, Routine 12 (Given - Provider: Tanner Cheema RN)1106 ([facility] Hold - Provider: Admin Adt - Reason: Transfer to a Procedural area)1313 ([facility] Unhold - Provider: Admin Adt) 0810 (Given - Provider: Tanner Cheema RN) atorvastatin (Lipitor) tablet 40 mg 40 mg, Oral, EVERY EVENING, First dose on Sat11/16/19 at 2000, Until Discontinued, Routine 1941 (Given - Provider: Melony Crews RN) 1106 ([facility] Hold - Provider: Admin Adt - Reason: Transfer to a Procedural area)1313 ([facility] Unhold - Provider: Admin Adt)172 (Given - Provider: Tanner Cheema RN) 173 (Given - Provider: Tanner Cheema RN) calcium citrate (Calcitrate) tablet 950 mg 950 mg, Oral, DAILY, First dose on Sat11/17/19 at 0900, Until Discontinued 09 (Given - Provider: Tanner Cheema RN)1106 ([facility] Hold - Provider: Admin Adt - Reason: Transfer to a Procedural area)1313 ([facility] Unhold - Provider: Admin Adt) 0811 (Given - Provider: Tanner Cheema RN) citalopram (CeleXA) tablet 10 mg 10 mg, Oral, DAILY, First dose on Sat11/17/19 at 0900, Until Discontinued, Routine 912 (Given - Provider: Tanner Cheema RN)1106 ([facility] Hold - Provider: Admin Adt - Reason: Transfer to a Procedural area)1313 ([facility] Unhold - Provider: Admin Adt) 0810 (Given - Provider: Tanner Cheema RN) lisinopriL (Prinivil;Zestril) tablet 10 mg 10 mg, Oral, DAILY, First dose on Sat11/17/19 at 0900, Until Discontinued, Routine 912 (Given - Provider: Tanner Cheema RN)1106 ([facility] Hold - Provider: Admin Adt - Reason: Transfer to a Procedural area)1313 ([facility] Unhold - Provider: Admin Adt) 0811 (Given - Provider: Tanner Cheema RN) metoprolol tartrate (Lopressor) tablet 25 mg 25 mg, Oral, EVERY 12 HOURS SCHEDULED, First dose on Sat11/16/19 at 2100, Until Discontinued, Hold for SBP less than 90 mmHG or HR less than 60 beats per minute, Routine 2040 (Given - Provider: Melony Crews RN) 0912 (Given - Provider: Tanner Cheema RN)1106 ([facility] Hold - Provider: Admin Adt - Reason: Transfer to a Procedural area)1313 ([facility] Unhold - Provider: Admin Adt)204 (Given - Provider: Melony Crews RN) 0810 (Given - Provider: Tanner Cheema RN)1828 (Given - Provider: Tanner Cheema RN - Comment: Given prior to discharge per discussion with RAIL EQUIPMENT OPERATOR.) pantoprazole EC (Protonix) tablet 40 mg 40 mg, Oral, DAILY, First dose on Sat11/17/19 at 0900, Until Discontinued 913 (Given - Provider: Tanner Cheema RN)1106 ([facility] Hold - Provider: Admin Adt - Reason: Transfer to a Procedural area)131 ([facility] Unhold - Provider: Admin Adt) 810 (Given - Provider: Tanner Cheema RN) rOPINIRole (Requip) tablet 0.5 mg 0.5 mg, Oral, NIGHTLY, First dose on Sat11/16/19 at 2100, Until Discontinued, Routine 2040 (Not Given - Provider: Melony Crews RN - Reason: Patient/family refused) 1106 ([facility] Hold - Provider: Admin Adt - Reason: Transfer to a Procedural area)131 ([facility] Unhold - Provider: Admin Adt)2099 (Not Given - Provider: Melony Crews, RN - Reason: Patient/family refused) sodium chloride 0.9 % (flush) flush 5 mL 5 mL, Intravenous, 2 TIMES DAILY, First dose on Sat11/16/19 at 2100, Until Discontinued, Routine 2099 (Not Given - Provider: Melony Crews RN - Reason: Contraindicated) 0900 (Given - Provider: Tanner Cheema RN)1106 ([facility] Hold - Provider: Admin Adt - Reason: Transfer to a Procedural area)131 ([facility] Unhold - Provider: Admin Adt)2053 (Given - Provider: Melony Crews RN) 08 (Given - Provider: Tanner Cheema RN) sodium chloride 0.9 % (flush) flush 5 mL 5 mL, Intravenous, 2 TIMES DAILY, First dose on Sat11/16/19 at 2100, Until Discontinued, Routine 2047 (Given - Provider: Melony Crews, AJ) 0900 (Not Given - Provider: Tanner Cheema RN - Reason: See comment - Comment: 2nd IV infusing)1106 ([facility] Hold - Provider: Admin Adt - Reason: Transfer to a Procedural area)131 ([facility] Unhold - Provider: Admin Adt)2052 (Given - Provider: Melony Crews RN) 08 (Given - Provider: Tanner Cheema RN) Continuous Medication Order 11/16/2019 11/17/2019 11/18/2019 heparin (porcine) 50 units/mL in sodium chloride 0.45% 500 mL infusion (CANCELED)(Linked Group 1) 0-5,000 Units/hr (0-100 mL/hr), Intravenous, CONTINUOUS, Starting on 11/16/19 at 2000, Until Tu11/17/19 at 1206, BEGIN infusion at 600 units per hr (12 units/kg/hr). MAX INITIAL infusion rate is 1,000 units/hr. Target Heparin UFH Level (anti-Xa activity) = 0.3 - 0.7 IU/mL Start adjustment schedule 6 hours after starting infusion. If Heparin UFH Level is: - less than 0.1 IU/mL, administer PRN bolus and increase rate by 200 units per hr (4 units/kg/hr) - 0.1 - 0.29 IU/mL, administer PRN bolus and increase rate by 100 units per hr (2 units/kg/hr) - 0.3 - 0.7 IU/mL, No Change - 0.71 - 0.85 IU/mL, decrease rate by 50 units per hr (1 units/kg/hr) - 0.86 - 1.05 IU/mL, stop infusion for 30 minutes, then decrease rate by 100 units per hr (2 units/kg/hr) - Greater than 1.05 IU/mL, stop infusion for 60 minutes, then decrease rate by 150 units per hour (3 units/kg/hr) Repeat Heparin UFH Level 6 hours after initiating heparin. Then 6 hours after each dose adjustment. When 2 consecutive Heparin UFH Level within target range of 0.3 - 0.7 IU/mL, change Heparin UFH Level to once every 24 hours with A.M. labs while on heparin. RN to order required Heparin UFH Level - Per Protocol, Routine 2043 (New Bag - Provider: Melony Crews RN) 0918 (Rate/Dose Change - Provider: Tanner Cheema RN)1106 ([facility] Hold - Provider: Admin Adt - Reason: Transfer to a Procedural area)1206 ([facility] Unhold - Provider: Yodit Turner RN) nitroGLYcerin 50 mg in dextrose 5% 250 mL infusion (CANCELED) 10 mcg/min (3 mL/hr), Intravenous, CONTINUOUS, Starting on Sat11/16/19 at 2000, Until Sat11/17/19 at 1206, Initiate at 10 mcg/minute for elevated BP and titrate in increments of 5mcg/min every 5 min to BP< 160/90. Call provider if rate reaches 120 mcg/min with no significant response Hold for SBP less than 90 mmHG AND call provider, Routine 194 (New Bag - Provider: Melony Crews, RN)2030 (Rate/Dose Change - Provider: Melony Crews, RN)2130 (Rate/Dose Change - Provider: Melony Crews, RN)223 (Rate/Dose Change - Provider: Melony Crews, RN) 0005 (Rate/Dose Change - Provider: Melony Crews, RN)0047 (Stopped - Provider: Melony Crews RN)1106 ([facility] Hold - Provider: Admin Adt - Reason: Transfer to a Procedural area)1206 ([facility] Unhold - Provider: Yodit Turner RN) sodium chloride 0.9% infusion () 100 mL/hr, Intravenous, CONTINUOUS, Starting on Sat11/17/19 at 1245, Until Sat11/17/19 at 1544, Recovery (Recovery-Hospital Unit) 1245 (New Bag - Provider: Scott Goldberg, AJ) PRN Medication Order 11/16/2019 11/17/2019 11/18/2019 acetaminophen (Tylenol) tablet 650 mg 650 mg, Oral, EVERY 4 HOURS PRN, Starting on Sat11/16/19 at 1908, Until Sat11/18/19 at 2102, Pain, Headaches, Maximum dose of acetaminophen is 4000 mg from all sources in 24 hours. When ordered for pain, acetaminophen should be given even when other ordered pain medications are indicated. , Routine 1106 ([facility] Hold - Provider: Admin Adt - Reason: Transfer to a Procedural area)1313 ([facility] Unhold - Provider: Admin Adt) clopidogreL (Plavix) tablet (CANCELED) ONCE PRN, Starting on Sat11/17/19 at 1136, Until Sat11/17/19 at 1206, Intra-Operative (Intra-Procedure), Routine 1136 (Given - Provider: Luca Chavez) fentaNYL 50 mcg/mL multi-dose injection (CANCELED) ONCE PRN, Starting on Sat11/17/19 at 1139, Until Sat11/17/19 at 1206, Intra-Operative (Intra-Procedure), Routine 1139 (Given - Provider: Luca Chavez) heparin (porcine) injection 0-4,000 Units (CANCELED)(Linked Group 1) 0-4,000 Units, Intravenous, BOLUS PER HEPARIN PROTOCOL, Starting on Sat11/16/19 at 1908, Until Sat11/17/19 at 1206, Per Protocol, START ADJUSTMENT SCHEDULE 6 HOURS AFTER STARTING INFUSION Heparin UFH Level between 0.1 - 0.29 IU/mL: Bolus 1,550 units Heparin UFH Level less than 0.1 IU/mL: Bolus 3,100 units, Routine 0915 (Given - Provider: Tanner Cheema RN)1106 ([facility] Hold - Provider: Admin Adt - Reason: Transfer to a Procedural area)1206 ([facility] Unhold - Provider: Yodit Turner RN) iohexoL (OMNIPAQUE) 350 mg/mL solution (CANCELED) ONCE PRN, Starting on Sat11/17/19 at 1203, Until Sat11/17/19 at 1206, Cath (Intra-Procedure), Routine 1203 (Given - Provider: Izabela Emery MD - Comment: Contrast in Cosmetician) lidocaine (XYLOCAINE) 10 mg/mL (1 %) injection 3 mg 3 mg (0.3 mL), Subcutaneous, ONCE PRN, 1 dose, Starting on Sat11/16/19 at 1908, Until Sat11/18/19 at 2102, for discomfort with PIV insertion, Routine 1106 ([facility] Hold - Provider: Admin Adt - Reason: Transfer to a Procedural area)1313 ([facility] Unhold - Provider: Admin Adt) lidocaine (XYLOCAINE) 10 mg/mL (1 %) injection (CANCELED) ONCE PRN, Starting on Sat11/17/19 at 1134, Until Sat11/17/19 at 1206, Cath (Intra-Procedure), Routine 1134 (Given - Provider: German Teresa) melatonin tablet 3 mg (COMPLETED) 3 mg, Oral, ONCE PRN, 1 dose, Starting on Sat11/16/19 at 2111, Until Sat11/16/19 at 2133, sleep aid, Routine 2132 (Given - Provider: Melony Crews, RN) melatonin tablet 6 mg 6 mg, Oral, NIGHTLY PRN, Starting on Sat11/17/19 at 2159, Until Sat11/18/19 at 2102, sleep, Routine 221 (Given - Provider: Melony Crews, RN - Comment: pt request just 1 pill) midazolam (PF) (VERSED) multi-dose injection (CANCELED) ONCE PRN, Starting on Sat11/17/19 at 1139, Until Sat11/17/19 at 1206, Cath (Intra-Procedure), Routine 1139 (Given - Provider: Luca Chavez) nitroGLYcerin (Nitrostat) disintegrating tablet 0.4 mg 0.4 mg, Sublingual, EVERY 5 MIN PRN, Starting on Sat11/17/19 at 1216, Until Sat11/18/19 at 2102, Chest pain, May repeat every 5 minutes for a total of three doses. Notify provider if chest pain not relieved with nitroglycerin. Do not administer nitroglycerin if the patient has received or taken phosphodiesterase (PDE-5) inhibitors such as sildenafil, tadalafil or vardenafil within the last 24 to 72 hours., Recovery (Recovery-Hospital Unit), Routine nitroGLYcerin 100 mcg/mL intracoronary dilution (CANCELED) ONCE PRN, Starting on Sat11/17/19 at 1142, Until Sat11/17/19 at 1206, Cath (Intra-Procedure), Routine 1142 (Given - Provider: German Teresa - Comment: per Radial Protocol) ondansetron (ZOFRAN) injection 4 mg (COMPLETED) 4 mg, Intravenous, ONCE PRN, 1 dose, Starting on Sat11/16/19 at 2031, Until Sat11/16/19 at 2040, Nausea 2039 (Given - Provider: Melony Crews, AJ) sodium chloride 0.9 % (flush) flush 5-20 mL 5-20 mL, Intravenous, EVERY 1 MIN PRN, Starting on Sat11/16/19 at 1908, Until Sat11/18/19 at 2102, flush, Flush pertains to all indwelling lines. Flush per protocol found in the job aid using the link provided on this medication record., Routine 1106 ([facility] Hold - Provider: Admin Adt - Reason: Transfer to a Procedural area)1313 ([facility] Unhold - Provider: Admin Adt) sodium chloride 0.9 % (flush) flush 5-20 mL 5-20 mL, Intravenous, EVERY 1 MIN PRN, Starting on Sat11/16/19 at 1908, Until Sat11/18/19 at 2102, flush, Flush pertains to all indwelling lines. Flush per protocol found in the job aid using the link provided on this medication record., Routine 1106 ([facility] Hold - Provider: Admin Adt - Reason: Transfer to a Procedural area)1313 ([facility] Unhold - Provider: Admin Adt) sodium chloride 0.9% infusion (CANCELED) CONTINUOUS PRN, Starting on Sat11/17/19 at 1121, Until Sat11/17/19 at 1206, Cath (Intra-Procedure) 1121 (New Bag - Provider: Luca Chavez - Comment: Cosmetician FLush Line) verapamiL (ISOPTIN) injection (CANCELED) ONCE PRN, Starting on Sat11/17/19 at 1141, Until Sat11/17/19 at 1206, Administer over 2 Minutes, Cath (Intra-Procedure) 1141 (Given - Provider: German Teresa - Comment: per Radial Protocol) Linked Groups Order Group 1: heparin (porcine) injection 0-4,000 Units (CANCELED)Jump to med 0-4,000 Units, Intravenous, BOLUS PER HEPARIN PROTOCOL, Starting on Sat11/16/19 at 1908, Until Sat11/17/19 at 1206, Per Protocol, START ADJUSTMENT SCHEDULE 6 HOURS AFTER STARTING INFUSION Heparin UFH Level between 0.1 - 0.29 IU/mL: Bolus 1,550 units Heparin UFH Level less than 0.1 IU/mL: Bolus 3,100 units, Routine And heparin (porcine) 50 units/mL in sodium chloride 0.45% 500 mL infusion (CANCELED)Jump to med 0-5,000 Units/hr (0-100 mL/hr), Intravenous, CONTINUOUS, Starting on Sat11/16/19 at 2000, Until Sat11/17/19 at 1206, BEGIN infusion at 600 units per hr (12 units/kg/hr). MAX INITIAL infusion rate is 1,000 units/hr. Target Heparin UFH Level (anti-Xa activity) = 0.3 - 0.7 IU/mL Start adjustment schedule 6 hours after starting infusion. If Heparin UFH Level is: - less than 0.1 IU/mL, administer PRN bolus and increase rate by 200 units per hr (4 units/kg/hr) - 0.1 - 0.29 IU/mL, administer PRN bolus and increase rate by 100 units per hr (2 units/kg/hr) - 0.3 - 0.7 IU/mL, No Change - 0.71 - 0.85 IU/mL, decrease rate by 50 units per hr (1 units/kg/hr) - 0.86 - 1.05 IU/mL, stop infusion for 30 minutes, then decrease rate by 100 units per hr (2 units/kg/hr) - Greater than 1.05 IU/mL, stop infusion for 60 minutes, then decrease rate by 150 units per hour (3 units/kg/hr) Repeat Heparin UFH Level 6 hours after initiating heparin. Then 6 hours after each dose adjustment. When 2 consecutive Heparin UFH Level within target range of 0.3 - 0.7 IU/mL, change Heparin UFH Level to once every 24 hours with A.M. labs while on heparin. RN to order required Heparin UFH Level - Per Protocol, Routine documented in this encounter Care Teams Bilingual Student Tutor Relationship Specialty Start Date End Date Nelia Bone APRN PCP - General 08/05/14 10/24/22 documented as of this encounter
--- OUTSIDE RECORDS SUMMARY | 2024-01-24 00:21 | XMS_ITS | Encounter Summary ---
Author Organization [facility] Address [facility] Maggie [place] [address] Care Team Providers Care Political Reporter Name Role Phone Nelia Bone JUMANA Primary Care Provider [phone]- [phone] Encounter Details Date Type Department Care Team (Latest Contact Info) Description 09/01/2017 12:05 AM EDT - 09/01/2017 11:59 PM EDT Hospital Encounter Radiology Library at [facility] [place] [id number] Gabriel Clemons III, MD [facility] [place] [address] Pain Discharge Disposition: Home Social History Tobacco Use Types Packs/Day Years Used Date Smoking Tobacco: Never Sex and Gender Information Value Date Recorded Sex Assigned at Not on file Gender Identity Not on file Sexual Orientation Not on file documented as of this encounter Medications at Time of Discharge Medication Sig Dispensed Refills Start Date End Date omeprazole (PRILOSEC) 20 mg Capsule, Delayed Release(E.C.) Take 20 mg by mouth daily. Calcium 500 mg Tab Take 600 mg by mouth 2 times daily. citalopram (CELEXA) 10 mg tablet Take 10 mg by mouth daily. CIS Free Text Med - Multiple Vitamin 04/28/2010 ferrous sulfate 324 mg (65 mg iron) Tablet, Delayed Release (E.C.) Take 324 mg by mouth. 11/16/2019 lisinopril (PRINIVIL;ZESTRIL) 20 mg tablet Take 10 mg by mouth daily. 11/18/2019 documented as of this encounter Plan of Treatment Not on file documented as of this encounter Procedures Procedure Name Priority Date/Time Associated Diagnosis Comments FILM LIBRARY STORAGE ONLY DX KNEE Routine 09/01/2017 12:05 AM EDT Pain documented in this encounter Results * Film Library- Storage Only DX Knee (09/01/2017 12:05 AM EDT) Narrative [facility] - 09/01/2017 1:18 PM EDT This exam is for storage only and is auto-finalizing. Gabriel Clemons III, MD IMAlessio FILM LIBRARY ORDERABLES Performing Organization Address City/State/[facility] Co de Phone Number [place], [place] documented in this encounter Visit Diagnoses Diagnosis Pain Generalized pain documented in this encounter Care Teams Political Reporter Relationship Specialty Start Date End Date Nelia Bone APRN PCP - General 08/05/14 10/24/22 documented as of this encounter
--- OUTSIDE RECORDS SUMMARY | 2024-01-24 00:21 | XMS_ITS | Encounter Summary ---
Author Organization [facility] Address [facility] [place] [address] Care Team Providers Care Forensic Nurse Name Role Phone Nelia Bone JUMANA Primary Care Provider [phone]- [phone] Encounter Details Date Type Department Care Team (Late st Contact Info) Description 11/16/2019 Telephone Cardiology at [address] [place] [id number] Tish Guo APRN [facility] [place] [id number] Social History Tobacco Use Types Packs/Day Years Used Date Smoking Tobacco: Never Alcohol Use Standard Drinks/Week Comments Not Currently 0 (1 standard drink = 0.6 oz pur e alcohol) Sex and Gender Information Value Date Recorded Sex Assigned at Not on file Gender Identity Not on file Sexual Orientation Not on file documented as of this encounter Miscellaneous Notes * Telephone Encounter - Tish Guo APRN - 11/16/2019 8:23 AM EDT 11/16/2019 Katlyn Shirley Initial Contact Date: 11/16/19 Initial contact time: 8:20am Referring Provider: Gregorio Gamboa MD / Tamie Valadez MD Patient Location: [facility] Past Medical History: GERD Presenting Symptoms per OSH: 79 yo F who was awoken from her sleep at 2am with palpitations, diaphoresis and nausea. Denies CP, SOB. Episode lasted approx 30 min and resolved on its own. She reports a similar episode 3 years agoand was dx'ed with dehydration. Upon arrival to the ED, she received IVF, a full dose ASA and was started on a heparin drip. Her initial troponin was negative. 2nd troponin was positive at 0.08. Whencompared with ECG from 2017, ECG on arrival showed STD in V3-5 and TWI in aVL. BP 169/73, HR 84, 99% on RA. Pertinent Diagnostic Findings: Cr 1.26 Plt 179 Trop I neg --> 0.08 Past cardiac studies: None OSH Interventions: ASA 324mg Heparin drip IVF Plan: Accepted in transfer to [facility] for ischemic evaluation. Atypical presentation, but ECG changes and positive troponin warrant further evaluation. Above recommendations were based on my discussion with Dr. Valadez; I have not personally interviewed or examined this patient. I encouraged Rory to contact us if there is any change in symptoms, decision- making, or further need for guidance in management. Tish Guo APRN Cardiovascular Medicine Pager [phone] 11/16/2019 documented in this encounter Plan of Treatment Not on file documented as of this encounter Visit Diagnoses Not on filedocumented in this encounter Care Teams Forensic Nurse Relationship Specialty Start Date End Date Nelia Bone APRN PCP - General 08/05/14 10/24/22 documented as of this encounter
--- OUTSIDE RECORDS SUMMARY | 2024-01-24 00:21 | XMS_ITS | Encounter Summary ---
Author Organization [facility] [place] [address] Care Team Providers Care Coremaker Helper Name Role Phone Nelia Bone JUMANA Primary Care Provider [phone] Reason for Visit * Auth/Cert Specialty Diagnoses / Procedures Referred By Sima t Referred To Contact Diagnoses NSTEMI (non-ST elevated myocardial infarction) NSTEMI Referral ID Status Reason Start Date Expiration Date Visits Re quested Visits Authorized [id number] 1 1 Encounter Details Date Type Department Care Team (Latest Contact Info) Description 11/16/2019 5:25 PM EDT - 11/18/2019 7:02 PM EDT Hospital Encounter [place] [address] Vicente Fields MD [facility] [place] [address] Abelino Brooke MD [facility] [place] [place] [address] Hypertension, unspecified type; Non-ST elevation myocardial infarction (NSTEMI) Discharge Disposition: Home Social History Tobacco Use [...] Katlyn Shirley Patient Age: 79 y.o. Language: Guatemalan Race: White Ethnicity: Not nor Admit date: [...] Information: MD Eliane Perera PA-C Cardiovascular Medicine [phone] Discharge Diagnoses (Hospital Problems) and Secondary Diagnoses [...] OP, and GERD who was transferred form [facility] for NSTEMI. ?? The HPI was [...] OP, and GERD who was transferred from [facility] for NSTEMI. ECG at [facility] revealed STD V3-5 andTWI in AVL, [...] (H) 11/18/2019 CREATININE 0.93 11/18/2019 Recent Labs 11/16/19 192 TSH 3.01 Recent Labs 11/16/19 192 HA1C 5.6 Recent Labs 11/17/19 0756 11/17/19 [...] of 8A-5PM please call the Cardiology Clinic [phone] to speak with a nurse. All other hours please call the Hospital Court Crier [phone] and ask to speak to the utility worker on-call. Return to work: One week Driving: No driving for 48 hours after cath Follow up Appointments: Doctor Where Phone # Date Time PCP Liz Friend APRN [address] [place], [place] [address] Wednesday, November 27, 2019 11:40AM Home oxygen therapy: N/A Arrangements for VNA/home care: N/A Discharge References/Attachments None Eliane Castano PA-C 11/18/2019 documented in this encounter Discharge Instructions * Discharge Instructions* Eliane Castano PA - 11/18/2019 12:00 PM EDT Call your doctor if: Chest pain, dyspnea, pain or swelling in legs occurs If you have non-emergent questions, prior to your follow-up visit call: Saturday-Saturday between the hours of 8A-5PM please call the Cardiology Clinic [phone] to speak with a nurse. All other hours please call the Hospital Court Crier [phone] and ask to speak to the utility worker on-call. Return to work: One week Driving: No driving for 48 hours after cath Follow up Appointments: Doctor Where Phone # Date Time PCP Liz Friend APRN [address] [place] [address] Wednesday, November 27, 2019 11:40AM Home oxygen [...] Progress Note Patient Name: Katlyn Shirley Service: AGRICULTURAL ENGINEERING TECHNOLOGIST / PA Responsible Attending: Abelino Brooke MD [...] 60 BILITOT 0.6 BILIDIR 0.1 Recent Labs 11/18/19 0312 11/16/191928 CALCIUM 8.9 9.3 MAGNESIUM -- 0.74 PHOS -- 2.1* Recent Labs 11/17/19 0756 11/17/19 0132 11/16/191928 TROPONINT 0.07* 0.12* 0.09* Pertinent Radiographic/Diagnostic Results: CXR [facility] 11/16/19 No acute cardiopulmonary process ECG [...] is no prior study available for comparison [facility] 11/17/19 Conclusions: * Nonobstructive coronary artery disease Assessment: Katlyn Shirley is a 79 y.o. female with a history of breast cancer s/p partial mastectomy and RT in 2009, HTN, OP, and GERD who was transferred form [facility] for NSTEMI. ECG at [facility] revealed STD V3-5 andTWI in AVL, [...] EKG without acute ischemic changes, compared to [facility] ECG STD V3-5 andTWI in AVL [...] 69%, no sig valvular disease or WMAs. [facility] 11/16 revealed nonobstructive disease #Hyperlipidemia Lipid profile [...] all questions were answered. Abelino Brooke MD, [facility] Section of Cardiovascular Medicine [facility] [employer] Supervisorcertified recreational therapist [facility] * Eliane Castano PA - 11/17/2019 9:56 AM EDT Images from the original note were not included. Inpatient Cardiology Progress Note Patient Name: Katlyn L Shirley Service: AGRICULTURAL ENGINEERING TECHNOLOGIST / PA Responsible Attending: Abelino Brooke MD [...] 0.07* 0.12* 0.09* Pertinent Radiographic/Diagnostic Results: CXR [place] 11/16/19 No acute cardiopulmonary process ECG 11/17/[address] changes Echocardiogram 11/17/19 Pending [facility] 11/17/19 Pending Assessment: Katlyn Shirley is a 79 y.o. female with a history of breast cancer s/p partial mastectomy and RT in 2009, HTN, OP, and GERD who was transferred form [facility] for NSTEMI. ECG at [facility] revealed STD V3-5 andTWI in AVL, [...] EKG without acute ischemic changes, compared to [facility] ECG STD V3-5 andTWI in AVL [...] intensity statin, atorvastatin 40mg daily Echocardiogram today [facility] with possible PCI today #Hyperlipidemia Lipid profile [...] not typical CP. Will adjust plan accordingly. Abelino Brooke MD, [facility] Section of Cardiovascular Medicine [facility] [employer] Supervisorcertified recreational therapist [facility] documented in this encounter H&P Notes * [...] OP, and GERD who was transferred form [facility] for NSTEMI. 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 [...] file Gets together: Not on file Attends restoration service: Not on file Active member of [...] B/L, no calf tenderness, swelling, or erythema. Neuro/MRI ASSISTANT: AAO x 3, No gross motor deficits. No sensory loss. No gait ataxia. Skin/Integumentary: No rash A&P: Katlyn Shirley is a 79 y.o. female w/ hx of breast cancer s/p partial mastectomy and RT in 2009, HTN, OP, and GERD who was transferred form [facility] for NSTEMI. #NSTEMI, likely type II [...] RT in 2009 #OP Continue home meds HM: Full code [...] file: MEDICARE Secondary Insurance on file:@ Medicaid [place] Primary care provider on file: Nelia Bone APRN [phone] Liz giles FINANCIAL MARKET DEALER [place] [phone] Advance Directive on file and Code Status: Attempt Cardiopulmonary Resuscitation - Inpatient Call MD office for AD Patient? s Functional Status: A&Ox4 Independent without a device Living Situation: lives alone in [address] [facility] [address] Supports: daughter Simone Sierra, Brinda Rodriguezfreddy [phone] cell Assessment: Patient with no apparent RNCM/SW needs at this time. No housing, transportation, insurance, resources concerns identified at this time. Supports in place to achieve a safe post-hospital transition. No identified barriers to accessing necessary care and/or follow-up after discharge. Plan: Patient to d/c to home when medically ready. experimental rocket sled mechanic/Oracle Financials Developer will continue to follow patient???s progress and remain available if situation changes for coordination of care, psychosocial support and/or discharge planning. Zulema Parsons, RN [phone] * Brief Op Note - Izabela Emery MD - 11/17/2019 12:04 PM EDT Preliminary Cardiac Catheterization Procedure Note: Patient Name: Katlyn Shirley : [id number] MR#: [id number] Case Date: 11/17/2019 Court Crier: Surgeon(s) and Role: * Izabela Emery MD [...] 3:12 AM EDT) Neutrophil % 69.4 % [facility] Neutrophil Absolute 4.66 1.70 - 6.10 x10(3)/[facility] Lymph % 17.1 % [facility] Lymphocytes Abs 1.2 0.9 - 3.2 x10(3)/[facility] Monocyte % 11.5 % [facility] Monocyte Abs 0.8 0.3 - 0.9 x10(3)/[facility] Eos % 1.3 % [facility] Eosinophils Abs 0.1 0.0 - 0.4 x10(3)/[facility] Basophil % 0.4 % [facility] Baso Absolute 0.0 0.0 - 0.1 x10(3)/[facility] Immature Gran % 0.30 % [facility] Comment: Immature granulocytes(IG's)percentage and absolute count will include metamyelocytes, myelocytes, and promyelocytes. Blood smears from CBCs yielding IG's will be scanned manually for concordance. If this scan disagrees with the automated IG or if promyelocytes are noted, a manual differential will be performed. Immature Gran Absolute 0.02 0.00 - 0.04 x10(3)/[facility] Blood specimen (specimen) 11/18/2019 3:12 AM EDT 11/18/2019 3:43 AM EDT Narrative Resulting Agency Comment Spec In Lab Ruben Swenson MD HEMATOLOGY ORDERABLE S [facility] [place] [address] * Hemogram (11/18/2019 3:12 AM EDT) White Blood Cell 6.7 4.0 - 9.5 x10(3)/[facility] Red Blood Cell 4.31 4.00 - 5.21 x10(6)/[facility] Hemoglobin 13.3 11.7 - 15.5 gm/dL [facility] Hematocrit 39.4 35.7 - 45.8 % [facility] Mean Cell Volume 91.4 82.6 - 94.4 fL [facility] Mean Cell Hemoglobin 30.9 27.1 - 32.0 pg [facility] Mean Cell Hemoglobin Concentration 33.8 31.7 - 35.0 gm/dL [facility] Platelet 187 145 - 357 x10(3)/[facility] RDW Standard Deviation 41.2 37.0 - 46.0 [facility] RDW coefficient of variation 12.3 11.5 - 14.1 % [facility] Mean Platelet Volume 11.9 7.6 - 12.9 [facility] NRBC% auto 0.0 % [facility] NRBC Absolute 0.000 0.000 - 0.000 x10(3)/[facility] Blood specimen (specimen) 11/18/2019 3:12 AM EDT 11/18/2019 3:43 AM EDT Narrative Resulting Agency Comment Spec In Lab Ruben Swenson MD HEMATOLOGY ORDERABLE S [facility] [place] [address] * (ABNORMAL) BMP w/fasting Glucose (11/18/2019 3:12 AM EDT) Glucose Fasting 92 65 - 99 mg/dL [facility] Comment: ?Fasting* Glucose Interpretive Criteria [...] of Diabetes Mellitus, Position Statement from the [place] Diabetes Association. ??Diabetes Care, Volume 33, Supplement 1, Mar 2009 Blood Urea Nitrogen 19(H) 8 - 18 mg/dL [facility] Creatinine 0.93 0.70 - 1.20 mg/dL [facility] Sodium 129(L) 135 - 145 mmol/L [facility] Potassium 4.3 3.5 - 5.0 mmol/L [facility] Comment: Please note: ??Patients with WBC >100,000 may have falsely elevated Potassium levels. ??For accurate Potassium quantification in these patients send serum separator tube (gold top) for subsequent determinations. ??Contact the Clinical Chemistry Laboratory if there are any questions. Chloride 99 98 - 107 mmol/L [facility] Carbon Dioxide 22 22 - 31 mmol/L [facility] Anion Gap 8 5 - 15 mmol/L [facility] Calcium 8.9 8.5 - 10.5 mg/dL [facility] Est Glomerular Filtration Rate 59(L) >=60 mL/min/1. 73 m?? [facility] Comment: The eGFR was calculated using the CKD-EPI equation. As with all creatinine based estimates of kidney function, eGFR values calculated with the CKD-EPI equation are not accurate in patients with acute kidney failure, extremes of body mass or the acutely ill. http://Cint/[facility] eGFR 69 >=60 mL/min/1. 73 m?? [facility] Comment: The eGFR was calculated using the CKD-EPI equation. As with all creatinine based estimates of kidney function, eGFR values calculated with the CKD-EPI equation are not accurate in patients with acute kidney failure, extremes of body mass or the acutely ill. http://Cint/[facility] Blood specimen (specimen) 11/18/2019 3:12 AM EDT 11/18/2019 3:43 AM EDT Narrative Resulting Agency Comment Spec In Lab Abelino Brooke MD CHEMISTRY ORDERABLES [facility] [place] [address] * CARDIAC CATHETERIZATION (11/17/2019 12:06 PM EDT) Anatomical Region Laterality Modality Other Narrative 11/17/2019 12:14 PM EDT ?[facility] ? Cardiac Catheterization/Intervention Report ? Patient Name: Shirley, Katlyn L. ? Procedure Date: 11/17/2019 ? A #: [id number] ? Primary Physician: Izabela Emery ? Case #: [id number] ? File Name: [id number] ? Catheterization Order Number: [id number] ? [facility] ? Final Report [place], [place] ? Patient Name: ? Katlyn L. Shirley ?ID#: ?[id number] ? : ?1940 ? Procedure Date: ? [...] procedure was Urgent. The indication for ?the laborer gold leaf visit is ACS less than or equal [...] was present for the entire procedure. ?Dr. Izabela Emery M.D. was present during the moderate sedation ?intraservice time as documented by the sedation nurse. ??Case time = 00:19. ?Dr. Izabela Emery M.D. performed the coronary angiography and left heart ?catheterization. ? Izabela Emery M.D. ? Electronically Signed by: Izabela Emery M.D. ? Report Finalized: 11/17/2019 ??12:10 ? Procedure Note Izabela Emery MD - 11/17/2019 [facility] Cardiac Catheterization/Intervention Report Patient Name: Ashutosh Shirleyly ZainabRamez Procedure Date: 11/17/2019 A #: [id number] Primary Physician: Izabela Emery Case #: [id number] File Name: [id number] Catheterization Order Number: [id number] [facility] FinalReport [place], [place] Patient Name: Katlyn Shirley ID#:[id number] :1940 Procedure Date: November 17, 2019 Case [...] was designated as ASA Class III. The [facility] clinical frailty scale is4: Vulnerable. Diagnostic Tests: Electrocardiography: EKG was assessed by ECG. EKG was Normal. Medications Prior to Procedure: Angiotensin Converting Enzyme Inhibitor, Aspirin, Beta Blockerand Statin. Indications for Diagnostic Cath: The priority of the diagnostic procedure was Urgent. The indicationfor the laborer gold leaf visit is ACS less than or equal [...] * ECHO COMPLETE (11/17/2019 10:05 AM EDT) [facility] EF 69 HEARTLAB SYSTEM Anatomical Region Laterality Modality Other 11/17/2019 Narrative 11/17/2019 11:42 AM EDT Procedure: ?Transthoracic Echocardiogram Patient: ?CINDY CURRAN L ?(Age): 1940(79y) Med Rec#: ? [id number] ?Sex: ?F ? Site Loc: ? [facility] ?Ht / Wt: ??147(cm)/51(kg) Pt. Loc: ?CCU ? BSA: ?1.42 Study Date: ?? 11/17/2019 ?Pt. Type: Inpatient Tape: ? Referring: ALLEN Referring: RUBEN SWENSON Reading: Teo Leong ([id number]) Tafe Teacher: Zulema Bruner Interpreting Fellow: Connie Tucker ([id number]) Diagnosis: *Essential (primary) hypertension (I10) Rhythm: ? [...] Vmax ?0.76 ? m/sec ? MV deceleration [id number] ?msec ? MV A-wave Vmax ?1.09 ? [...] ? Mid-Inferior ?Normal ? Mid-Inferoseptal ?Normal ? Story-Septal ? Normal ? Story-Anterior ? Normal ? Story-Lateral ?Normal ? Story-Inferior ? Normal ? Story-Tip ?Normal ? This report has been electronically signed by: Teo Leong MD ? 11/17/2019 11:41:17 Images reviewed and interpretation verified [facility] Cardiac Ultrasound Laboratory Procedure Note Teo Leong MD - 11/17/2019 Procedure: Transthoracic Echocardiogram Patient: CINDY Lamb (Age): 1940(79y) Med Rec#: [id number] Sex: F Site Loc: [facility] Ht / Wt: 147(cm)/51(kg) Pt. Loc: [facility] BSA: 1.42 Study Date: 11/17/2019 Pt. Type: Inpatient Tape: Referring: ALLEN Referring: RUBEN SWENSON Reading: Teo Leong ([id number]) Tafe Teacher: Zulema Bruner Interpreting Fellow: Connie Tucker ([id number]) Diagnosis: *Essential (primary) hypertension (I10) Rhythm: Sinus [...] MV E-wave Vmax 0.76 m/sec MV deceleration [id number] msec MV A-wave Vmax 1.09 m/sec MV [...] Normal Mid-Posterolateral Normal Mid-Inferior Normal Mid-Inferoseptal Normal Story-Septal Normal Story-Anterior Normal Story-Lateral Normal Story-Inferior Normal Story-Tip Normal This report has been electronically signed by: Teo Leong MD 11/17/2019 11:41:17 Images reviewed and interpretation verified [facility] Cardiac Ultrasound Laboratory Ruben Swenson MD ECHO ORDERABLES * Heparin (unfractionated) Level (11/17/2019 7:56 AM EDT) Pathologist [facility] UF Heparin 0.26 IU/mL [facility] Comment: Guidelines for therapeutic unfractionated heparin [...] Lab Abelino Brooke MD HEMATOLOGY ORDERABLE S [facility] [place] [address] * (ABNORMAL) Troponin (11/17/2019 7:56 AM EDT) [facility] Troponin-T 0.07(H) 0.00 - 0.00 ng/mL [facility] Comment: The 99th percentile for Troponin T is less than 0.01 ng/mL, any detectable cTnT concentration using this assay should be considered elevated. According to the third universal definition of myocardial infarction the following criteria with a clinical presentation consistent with acute myocardial ischemia meets the diagnosis for a myocardial infarction (MN). Detection of a rise and/or fall of cTnT, with at least one value greater than the 99th percentile (> or = 0.01) and with at least one of the following ?? Symptoms of ischemia ?? New or presumed new significant IO-zutlytf-L wave (ST-T) changes or new left bundle [...] additional sample may be indicated. Reference: Third Macclenny Definition of Myocardial Infarction. Journal of the [place] College of Cardiology 2012;60:1581-98 Blood specimen (specimen) 11/17/2019 7:56 AM EDT 11/17/2019 8:19 AM EDT Narrative Resulting Agency Comment Spec In Lab Ruben Swenson MD CHEMISTRY ORDERABLES Performing Organization Address City/State/[facility] Co de Phone Number [facility] [place] [address] * Heparin (unfractionated) Level (11/17/2019 1:32 AM EDT) UF Heparin 0.33 IU/mL [facility] Comment: Guidelines for therapeutic unfractionated heparin [...] Lab Ruben Swenson MD HEMATOLOGY ORDERABLE S [facility] [place] [address] * (ABNORMAL) Differential, Automated (11/17/2019 1:32 AM EDT) Neutrophil % 89.3 % [facility] Neutrophil Absolute 8.75(H) 1.70 - 6.10 x10(3)/mc L [facility] Lymph % 4.8 % [facility] Lymphocytes Abs 0.5(L) 0.9 - 3.2 x10(3)/mc L [facility] Monocyte % 5.2 % [facility] Monocyte Abs 0.5 0.3 - 0.9 x10(3)/mc L [facility] Eos % 0.0 % [facility] Eosinophils Abs 0.0 0.0 - 0.4 x10(3)/mc L [facility] Basophil % 0.2 % [facility] Baso Absolute 0.0 0.0 - 0.1 x10(3)/mc L [facility] Immature Gran % 0.50 % [facility] Comment: Immature granulocytes(IG's)percentage and absolute count will include metamyelocytes, myelocytes, and promyelocytes. Blood smears from CBCs yielding IG's will be scanned manually for concordance. If this scan disagrees with the automated IG or if promyelocytes are noted, a manual differential will be performed. Immature Gran Absolute 0.05(H) 0.00 - 0.04 x10(3)/mc L [facility] Blood specimen (specimen) 11/17/2019 1:32 AM EDT 11/17/2019 1:37 AM EDT Narrative Resulting Agency Comment Spec In Lab Ruben Swenson MD HEMATOLOGY ORDERABLE S Performing Organization Address City/[facility]/ZIP Co de Phone Number [facility] [place] [address] * (ABNORMAL) Hemogram (11/17/2019 1:32 AM EDT) White Blood Cell 9.8(H) 4.0 - 9.5 x10(3)/mc L [facility] Red Blood Cell 4.43 4.00 - 5.21 x10(6)/mc L [facility] Hemoglobin 13.5 11.7 - 15.5 gm/dL [facility] Hematocrit 40.6 35.7 - 45.8 % [facility] Mean Cell Volume 91.6 82.6 - 94.4 fL [facility] Mean Cell Hemoglobin 30.5 27.1 - 32.0 pg [facility] Mean Cell Hemoglobin Concentration 33.3 31.7 - 35.0 gm/dL [facility] Platelet 206 145 - 357 x10(3)/mc L [facility] RDW Standard Deviation 40.9 37.0 - 46.0 fL [facility] RDW coefficient of variation 12.1 11.5 - 14.1 % [facility] Mean Platelet Volume 11.1 7.6 - 12.9 fL [facility] NRBC% auto 0.0 % [facility] NRBC Absolute 0.000 0.000 - 0.000 x10(3)/mc L [facility] Blood specimen (specimen) 11/17/2019 1:32 AM EDT 11/17/2019 1:37 AM EDT Narrative Resulting Agency Comment Spec In Lab Ruben Swenson MD HEMATOLOGY ORDERABLE S [facility] [place] [address] * (ABNORMAL) Troponin (11/17/2019 1:32 AM EDT) Troponin-T 0.12(H) 0.00 - 0.00 ng/mL [facility] Comment: The 99th percentile for Troponin T is less than 0.01 ng/mL, any detectable cTnT concentration using this assay should be considered elevated. According to the third universal definition of myocardial infarction the following criteria with a clinical presentation consistent with acute myocardial ischemia meets the diagnosis for a myocardial infarction (MN). Detection of a rise and/or fall of cTnT, with at least one value greater than the 99th percentile (> or = 0.01) and with at least one of the following ?? Symptoms of ischemia ?? New or presumed new significant JR-eokifof-Q wave (ST-T) changes or new left bundle [...] additional sample may be indicated. Reference: Third Macclenny Definition of Myocardial Infarction. Journal of the [place] College of Cardiology 2012;60:1581-98 Blood specimen (specimen) 11/17/2019 1:32 AM EDT 11/17/2019 1:37 AM EDT Narrative Resulting Agency Comment Spec In Lab Ruben Swenson MD CHEMISTRY ORDERABLES Performing Organization Address City/State/[facility] Co de Phone Number [facility] [place] [address] * COVID-19 PCR (11/16/2019 11:45 PM EDT) Pathologist [facility] SARS-CoV-2 RNA (Rapid) Not Detected Not Detected [facility] Comment: This result should be [...] using the Simplexa COVID-19 Direct Assay by [employer] as authorized by the FDA issued Emergency [...] Department of Pathology and Laboratory Medicine at [facility], certified under the Clinical Laboratory Improvement [...] Information for Healthcare Professionals (https://www.cdc.gov/coronavirus/2019-ncov/hcp/index.html). SARS-CoV-2 Source AGRICULTURAL ENGINEERING TECHNOLOGIST Swab [facility] Nasopharyngeal swab (specimen) 11/16/2019 11:45 PM EDT 11/17/2019 12:17 AM EDT Comment:Symptoms->Surveillan ce Narrative Resulting Agency Comment Spec In Lab Ruben Swenson MD MICROBIOLOGY - GENER AL ORDERABLES [facility] [place] [address] * EKG 12 Lead (11/16/2019 7:47 PM EDT) Ventricular rate 88 BPM MUSE SYSTEM Atrial Rate 88 BPM MUSE SYSTEM P-R Interval 164 ms MUSE SYSTEM QRS Duration 82 ms MUSE SYSTEM Q-T Interval 400 ms MUSE SYSTEM QTC Calculated (Bezet) 484 ms MUSE SYSTEM Calculated P [place] 48 degrees MUSE SYSTEM Calculated R [place] 52 degrees MUSE SYSTEM Calculated T [place] 70 degrees MUSE SYSTEM INTERPRETATION Normal sinus rhythm Normal ECG No previous ECGs available Confirmed by MD Rodney, Norman ([id number]) on 11/17/2019 6:56:04 AM MUSE SYSTEM 11/16/2019 7:47 PM EDT 11/17/2019 6:56 AM EDT Ruben Swenson MD ECG ORDERABLES MUSE SYSTEM * (ABNORMAL) Differential, Automated (11/16/2019 7:29 PM EDT) Neutrophil % 88.1 % [facility] Neutrophil Absolute 8.43(H) 1.70 - 6.10 x10(3)/mc L [facility] Lymph % 6.3 % [facility] Lymphocytes Abs 0.6(L) 0.9 - 3.2 x10(3)/mc L [facility] Monocyte % 5.1 % [facility] Monocyte Abs 0.5 0.3 - 0.9 x10(3)/mc L [facility] Eos % 0.0 % [facility] Eosinophils Abs 0.0 0.0 - 0.4 x10(3)/mc L [facility] Basophil % 0.3 % [facility] Baso Absolute 0.0 0.0 - 0.1 x10(3)/mc L [facility] Immature Gran % 0.20 % [facility] Comment: Immature granulocytes(IG's)percentage and absolute count will include metamyelocytes, myelocytes, and promyelocytes. Blood smears from CBCs yielding IG's will be scanned manually for concordance. If this scan disagrees with the automated IG or if promyelocytes are noted, a manual differential will be performed. Immature Gran Absolute 0.02 0.00 - 0.04 x10(3)/mc L [facility] Blood specimen (specimen) 11/16/2019 7:29 PM EDT 11/16/2019 7:43 PM EDT Narrative Resulting Agency Comment Spec In Lab Ruben Swenson MD HEMATOLOGY ORDERABLE S [facility] [place] [address] * (ABNORMAL) Hemogram (11/16/2019 7:29 PM EDT) White Blood Cell 9.6(H) 4.0 - 9.5 x10(3)/mc L [facility] Red Blood Cell 4.83 4.00 - 5.21 x10(6)/[facility] Hemoglobin 14.8 11.7 - 15.5 gm/dL [facility] Hematocrit 43.7 35.7 - 45.8 % [facility] Mean Cell Volume 90.5 82.6 - 94.4 fL [facility] Mean Cell Hemoglobin 30.6 27.1 - 32.0 pg [facility] Mean Cell Hemoglobin Concentration 33.9 31.7 - 35.0 gm/dL [facility] Platelet 204 145 - 357 x10(3)/ L [facility] RDW Standard Deviation 40.0 37.0 - 46.0 fL [facility] RDW coefficient of variation 12.2 11.5 - 14.1 % [facility] Mean Platelet Volume 11.7 7.6 - 12.9 fL [facility] NRBC% auto 0.0 % [facility] NRBC Absolute 0.000 0.000 - 0.000 x10(3)/mc L [facility] Blood specimen (specimen) 11/16/2019 7:29 PM EDT 11/16/2019 7:43 PM EDT Narrative Resulting Agency Comment Spec In Lab Ruben Swenson MD HEMATOLOGY ORDERABLE S Performing Organization Address City/[facility]/ZIP Co de Phone Number [facility] [place] [address] * (ABNORMAL) Troponin (11/16/2019 7:29 PM EDT) [facility] Troponin-T 0.09(H) 0.00 - 0.00 ng/mL [facility] Comment: The 99th percentile for Troponin T is less than 0.01 ng/mL, any detectable cTnT concentration using this assay should be considered elevated. According to the third universal definition of myocardial infarction the following criteria with a clinical presentation consistent with acute myocardial ischemia meets the diagnosis for a myocardial infarction (MN). Detection of a rise and/or fall of cTnT, with at least one value greater than the 99th percentile (> or = 0.01) and with at least one of the following ?? Symptoms of ischemia ?? New or presumed new significant ZJ-gmlstsd-V wave (ST-T) changes or new left bundle [...] additional sample may be indicated. Reference: Third [place] Definition of Myocardial Infarction. Journal of the [place] [employer] 2012;60:1581-98 Blood specimen (specimen) 11/16/2019 7:29 PM EDT 11/16/2019 7:43 PM EDT Narrative Resulting Agency Comment Spec In Lab Ruben Swenson MD CHEMISTRY ORDERABLES Performing Organization Address [facility]/ZIP Co de Phone Number [facility] [place] [address] * Hemoglobin A1c (11/16/2019 7:29 PM EDT) Hemoglobin A1c 5.6 4.3 - 5.6 % [facility] Comment: Reference Range: 4.3 - [...] [id number] Estimated Average Glucose See note mg/dL [facility] Comment: Estimated Average Glucose not [...] into estimated average glucose values. ??Diabetes Care 2008:31(8):5805-2545. Blood specimen (specimen) 11/16/2019 7:29 PM EDT 11/16/2019 7:43 PM EDT Narrative Resulting Agency Comment Spec In Lab Ruben Swenson MD CHEMISTRY ORDERABLES [facility] [place] [address] * Lipid Panel (Reflex Direct LDL) (11/16/2019 7:29 PM EDT) Cholesterol, Total 209 mg/dL [facility] Comment: Lower Risk: <200 mg/dL Average Risk: 200-239 mg/dL Higher Risk: >zg=330 mg/dL Triglyceride 48 mg/dL [facility] Comment: Average Risk/Lower Risk: <150 mg/dL Borderline High Risk: 150-199 mg/dL High Risk: 200-499 mg/dL Very High Risk: >so=636 mg/dL HDL Cholesterol 91 mg/dL [facility] Comment: Males: ?? Higher Risk: <40 mg/dL Females: ?? HIgher Risk: <50 mg/dL LDL Cholesterol 108 mg/dL [facility] Comment: Lowest Risk: <100 mg/dL Lower Risk: 100-129 mg/dL Borderline High Risk: 130-159 mg/dL High Risk: 160-189 mg/dL Very High Risk: >qp=615 mg/dL Cholesterol/HDL Ratio 2.3 ratio [facility] Lipid Interpretation See Note [facility] Comment: Lipid management should be guided by a patient? s ASCVD risk, goals and preferences. ACC/AHA Guidelines recommend high intensity statin if clinical ASCVD or LDL greater than or equal to 190 mg/dL. http://[employer].com/API-HKK-Wykkvzqut Adults aged 40-75 with LDL 70-189 mg/dL should have their 10 year ASCVD risk estimated with the ACC/AHA ASCVD risk job estimator http://tools.acc.org/DMTFU-Hxgc-Jmjrcurmf/ Statin should be discussed if risk greater [...] Swenson MD CHEMISTRY ORDERABLES Performing Organization Address [facility]/ZIP Co de Phone Number [facility] [place] [address] * Hepatic Function Panel (11/16/2019 7:29 PM EDT) Protein, Total 7.3 6.1 - 8.0 gm/dL [facility] Albumin 4.4 3.2 - 5.2 gm/dL [facility] Aspartate Aminotransferase 29 0 - 30 unit/L [facility] Alanine Aminotransferase 16 0 - 30 unit/L [facility] Alkaline Phosphatase 60 35 - 105 unit/L [facility] Bilirubin, Total 0.6 0.2 - 1.3 mg/dL [facility] Bilirubin, Direct 0.1 0.0 - 0.3 mg/dL [facility] Blood specimen (specimen) 11/16/2019 7:29 PM EDT 11/16/2019 7:43 PM EDT Narrative Resulting Agency Comment Spec In Lab Ruben Swenson MD CHEMISTRY ORDERABLES Performing Organization Address [facility] Co de Phone Number [facility] [place] [address] * (ABNORMAL) pro-Brain Natriuretic Peptide (11/16/2019 7:29 PM EDT) NT-proBNP 2,621(H) <=450 pg/mL [facility] Blood specimen (specimen) 11/16/2019 7:29 PM EDT 11/16/2019 7:43 PM EDT Narrative Resulting Agency Comment Spec In Lab Ruben Swenson MD CHEMISTRY ORDERABLES Performing Organization Address City/[facility]/ZIP Co de Phone Number [facility] [place] [address] * TSH (11/16/2019 7:29 PM EDT) Thyroid Stimulating Hormone 3.01 0.27 - 4.20 mcIU/mL [facility] Blood specimen (specimen) 11/16/2019 7:29 PM EDT 11/16/2019 7:43 PM EDT Narrative Resulting Agency Comment Spec In Lab Ruben Swenson MD CHEMISTRY ORDERABLES Performing Organization Address City[facility] Co de Phone Number [facility] [place] [address] * (ABNORMAL) Phosphorus (11/16/2019 7:29 PM EDT) Phosphorus 2.1(L) 2.5 - 4.5 mg/dL [facility] Blood specimen (specimen) 11/16/2019 7:29 PM EDT 11/16/2019 7:43 PM EDT Narrative Resulting Agency Comment Spec In Lab Ruben Swenson MD CHEMISTRY ORDERABLES Performing Organization Address [facility] Co de Phone Number [facility] [place] [address] * Magnesium (11/16/2019 7:29 PM EDT) Magnesium 0.74 0.69 - 1.07 mmol/L [facility] Blood specimen (specimen) 11/16/2019 7:29 PM EDT 11/16/2019 7:43 PM EDT Narrative Resulting Agency Comment Spec In Lab Ruben Swenson MD CHEMISTRY ORDERABLES Performing Organization Address [facility] Co de Phone Number [facility] [place] [address] * (ABNORMAL) Basic Metabolic Panel (non-fasting) (11/16/2019 7:29 PM EDT) Glucose 114 65 - 199 mg/dL [facility] Comment:Diabetes: >=200 mg/d L plus symptoms Blood Urea Nitrogen 15 8 - 18 mg/dL [facility] Creatinine 0.89 0.70 - 1.20 mg/dL [facility] Sodium 132(L) 135 - 145 mmol/L [facility] Potassium 4.0 3.5 - 5.0 mmol/L [facility] Comment: Please note: ??Patients with WBC >100,000 may have falsely elevated Potassium levels. ??For accurate Potassium quantification in these patients send serum separator tube (gold top) for subsequent determinations. ??Contact the Clinical Chemistry Laboratory if there are any questions. Chloride 96(L) 98 - 107 mmol/L [facility] Carbon Dioxide 20(L) 22 - 31 mmol/L [facility] Anion Gap 16(H) 5 - 15 mmol/L [facility] Calcium 9.3 8.5 - 10.5 mg/dL [facility] Est Glomerular Filtration Rate 63 >=60 mL/min/1. 73 m?? [facility] Comment: The eGFR was calculated using the CKD-EPI equation. As with all creatinine based estimates of kidney function, eGFR values calculated with the CKD-EPI equation are not accurate in patients with acute kidney failure, extremes of body mass or the acutely ill. http://Cint/[facility] ENIDnkf eGFR 72 >=60 mL/min/1. 73 m?? [facility] Comment: The eGFR was calculated using the CKD-EPI equation. As with all creatinine based estimates of kidney function, eGFR values calculated with the CKD-EPI equation are not accurate in patients with acute kidney failure, extremes of body mass or the acutely ill. http://Cint/[facility] ENIDnkf Blood specimen (specimen) 11/16/2019 7:29 PM EDT 11/16/2019 7:43 PM EDT Narrative Resulting Agency Comment Spec In Lab Ruben Swenson MD CHEMISTRY ORDERABLES [facility] [place] [address] * Heparin (unfractionated) Level (11/16/2019 7:29 PM EDT) UF Heparin 0.40 IU/mL [facility] Comment: Specimen drawn more than one [...] Lab Ruben Swenson MD HEMATOLOGY ORDERABLE S [facility] [place] [address] documented in this encounter Visit Diagnoses Diagnosis Hypertension, unspecified type Non-ST elevation myocardial infarction (NSTEMI) Acute myocardial infarction, subendocardial infarction, episode of care unspecified Non-ST elevation myocardial infarction (NSTEMI) Acute myocardial infarction, subendocardial infarction, episode of care unspecified Hypertension Unspecified essential hypertension NSTEMI (non-ST elevated myocardial infarction) Acute myocardial infarction, subendocardial infarction, episode of care unspecified documented in this encounter Admitting Diagnoses Diagnosis NSTEMI (non-ST elevated myocardial infarction) Acute myocardial infarction, subendocardial infarction, episode of care unspecified documented in this encounter Administered Medications Inactive Administered Medications - up to 3 most recent administrations Medication Order MAR Action Action Date Dose Rate Site amLODIPine (Norvasc) tablet 5 mg 5 mg, Oral, NIGHTLY, First dose on Sat11/16/19 at 2200, Until Discontinued, Routine Given 11/17/2019 8:49 PM EDT 5 mg Given 11/16/2019 9:33 PM EDT 5 mg aspirin EC tablet 81 mg 81 mg, [...] Given 11/17/2019 9:13 AM EDT 10 mg heparin (porcine) 25,000 unit/500 mL infusion 1 dose, Starting on Sat11/16/19 at 1726, Until Sat11/16/19 at 2044, SHARMIN ZELAYA: jose hess heparin (porcine) 50 units/mL in sodium chloride 0.45% 500 mL infusion 0-5,000 Units/hr (0-100 mL/hr), Intravenous, CONTINUOUS, Starting [...] Heparin UFH Level - Per Protocol, Routine Rate/Dose Change 11/17/2019 9:18 AM EDT 650 Units/hr 13 mL/hr New Bag 11/16/2019 8:44 PM EDT 550 Units 11 mL/hr heparin (porcine) injection 0-4,000 Units 0-4,000 Units, Intravenous, BOLUS PER HEPARIN PROTOCOL, Starting on Sat11/16/19 at 1908, Until Sat11/17/19 at 1206, Per Protocol, START ADJUSTMENT SCHEDULE 6 HOURS AFTER STARTING INFUSION Heparin UFH Level between 0.1 - 0.29 IU/mL: Bolus 1,550 units Heparin UFH Level less than 0.1 IU/mL: Bolus 3,100 units, Routine Given 11/17/2019 9:15 AM EDT 1,550 Units lisinopriL (Prinivil;Zestril) tablet 10 mg 10 mg, Oral, DAILY, First dose on Sat11/17/19 at 0900, Until Discontinued, Routine Given 11/18/2019 8:11 AM EDT 10 mg Given 11/17/2019 9:13 AM EDT 10 mg melatonin tablet 3 mg 3 mg, Oral, ONCE PRN, 1 dose, Starting on Sat11/16/19 at 2111, Until Sat11/16/19 at 2133, sleep aid, Routine Given 11/16/2019 9:33 PM EDT 3 mg melatonin tablet 6 mg 6 mg, [...] Given 11/17/2019 8:49 PM EDT 25 mg nitroGLYcerin (Nitrostat) disintegrating tablet 0.4 mg [...] 72 hours., Recovery (Recovery-Hospital Unit), Routine nitroGLYcerin 50 mg in dextrose 5% 250 mL infusion 10 mcg/min (3 mL/hr), Intravenous, CONTINUOUS, Starting on Sat11/16/19 at 2000, Until Sat11/17/19 at 1206, Initiate at 10 mcg/minute for elevated BP and titrate in increments of 5mcg/min every 5 min to BP< 160/90. Call provider if rate reaches 120 mcg/min with no significant response Hold for SBP less than 90 mmHG AND call provider, Routine Rate/Dose Change 11/17/2019 12:05 AM EDT 10 mcg/min 3 mL/hr Rate/Dose Change 11/16/2019 10:32 PM EDT 20 mcg/min 6 mL/h r Rate/Dose Change 11/16/2019 9:30 PM EDT 30 mcg/min 9 mL/hr ondansetron (ZOFRAN) injection 4 mg 4 mg, Intravenous, ONCE PRN, 1 dose, Starting on Sat11/16/19 at 2031, Until Sat11/16/19 at 2040, Nausea Given 11/16/2019 8:40 PM EDT 4 mg pantoprazole EC (Protonix) tablet 40 mg 40 [...] EDT 5 mLs sodium chloride 0.9% infusion 100 mL/hr, Intravenous, CONTINUOUS, Starting on Sat11/17/19 at 1245, Until Sat11/17/19 at 1544, Recovery (Recovery-Hospital Unit) New Bag 11/17/2019 12:45 PM EDT 100 mL/hr 100 m L/hr documented in this encounter Active and Recently Administered Medications Times are shown in EDT. Scheduled Medication Order 11/16/2019 11/17/2019 11/18/2019 amLODIPine (Norvasc) tablet 5 mg (CANCELED) 5 mg, Oral, NIGHTLY, First dose on Sat11/16/19 at 2200, Until Discontinued, Routine 3 (Given - Provider: Melony Crews RN) 1106 (MAR Hold - Provider: Admin Adt - Reason: Transfer to a Procedural area)1313 ([facility] Unhold - Provider: Admin Adt)204 (Given - Provider: Melony Crews, RN) aspirin EC tablet 81 mg 81 mg, Oral, DAILY, First dose on Sat11/17/19 at 0900, Until Discontinued, Routine 0912 (Given - Provider: Tanner Cheema RN)1106 ([facility] Hold - Provider: Admin Adt - Reason: Transfer to a Procedural area)1313 ([facility] Unhold - Provider: Admin Adt) 0810 (Given - Provider: Tanner Cheema RN) atorvastatin (Lipitor) tablet 40 mg 40 mg, Oral, EVERY EVENING, First dose on Sat11/16/19 at 2000, Until Discontinued, Routine 194 (Given - Provider: Melony Crews, RN) 1106 ([facility] Hold - Provider: Admin Adt - Reason: Transfer to a Procedural area)1313 ([facility] Unhold - Provider: Admin Adt)1729 (Given - Provider: Tanner Cheema, AJ) 1732 (Given - Provider: Tanner Cheema RN) calcium citrate (Calcitrate) tablet 950 mg 950 mg, Oral, DAILY, First dose on Sat11/17/19 at 0900, Until Discontinued 09 (Given - Provider: Tanner Cheema RN)1106 ([facility] Hold - Provider: Admin Adt - Reason: Transfer to a Procedural area)1313 ([facility] Unhold - Provider: Admin Adt) 0811 (Given - Provider: Tanner Cheema, AJ) citalopram (CeleXA) tablet 10 mg 10 mg, Oral, DAILY, First dose on Sat11/17/19 at 0900, Until Discontinued, Routine 09 (Given - Provider: Tanner Cheema RN)1106 ([facility] Hold - Provider: Admin Adt - Reason: Transfer to a Procedural area)1313 ([facility] Unhold - Provider: Admin Adt) 0810 (Given - Provider: Tanner Cheema, AJ) lisinopriL (Prinivil;Zestril) tablet 10 mg 10 mg, Oral, DAILY, First dose on Sat11/17/19 at 0900, Until Discontinued, Routine 09 (Given - Provider: Tanner Cheema RN)1106 ([facility] Hold - Provider: Admin Adt - Reason: Transfer to a Procedural area)1313 ([facility] Unhold - Provider: Admin Adt) 0811 (Given - Provider: Tanner Cheema RN) metoprolol tartrate (Lopressor) tablet 25 mg 25 mg, Oral, EVERY 12 HOURS SCHEDULED, First dose on Sat11/16/19 at 2100, Until Discontinued, Hold for SBP less than 90 mmHG or HR less than 60 beats per minute, Routine 2040 (Given - Provider: Melony Crews, RN) 0912 (Given - Provider: Tanner Cheema RN)1106 ([facility] Hold - Provider: Admin Adt - Reason: Transfer to a Procedural area)131 ([facility] Unhold - Provider: Admin Adt)2048 (Given - Provider: Melony Crews, RN) 08 (Given - Provider: Tanner Cheema RN)1827 (Given - Provider: Tanner Cheema RN - Comment: Given prior to discharge per discussion with AGRICULTURAL ENGINEERING TECHNOLOGIST.) pantoprazole EC (Protonix) tablet 40 mg 40 mg, Oral, DAILY, First dose on Sat11/17/19 at 0900, Until Discontinued 913 (Given - Provider: Tanner Cheema RN)1106 ([facility] Hold - Provider: Admin Adt - Reason: Transfer to a Procedural area)131 ([facility] Unhold - Provider: Admin Adt) 810 (Given - Provider: Tanner Cheema RN) rOPINIRole (Requip) tablet 0.5 mg 0.5 mg, Oral, NIGHTLY, First dose on Sat11/16/19 at 2100, Until Discontinued, Routine 2040 (Not Given - Provider: Melony Crews, RN - Reason: Patient/family refused) 1106 ([facility] Hold - Provider: Admin Adt - Reason: Transfer to a Procedural area)131 ([facility] Unhold - Provider: Admin Adt)2099 (Not Given - Provider: Melony Crews, RN - Reason: Patient/family refused) sodium chloride 0.9 % (flush) flush 5 mL 5 mL, Intravenous, 2 TIMES DAILY, First dose on Sat11/16/19 at 2100, Until Discontinued, Routine 2099 (Not Given - Provider: Melony Crews, RN - Reason: Contraindicated) 0900 (Given - Provider: Tanner Cheema RN)1106 ([facility] Hold - Provider: Admin Adt - Reason: Transfer to a Procedural area)131 ([facility] Unhold - Provider: Admin Adt)2053 (Given - Provider: Melony Crews, RN) 0813 (Given - Provider: Tanner Cheema, AJ) sodium chloride 0.9 % (flush) flush 5 mL 5 mL, Intravenous, 2 TIMES DAILY, First dose on Sat11/16/19 at 2100, Until Discontinued, Routine 2047 (Given - Provider: Melony Crews RN) 0900 (Not Given - Provider: Tanner Cheema RN - Reason: See comment - Comment: 2nd IV infusing)1106 ([facility] Hold - Provider: Admin Adt - Reason: Transfer to a Procedural area)1313 ([facility] Unhold - Provider: Admin Adt)2052 (Given - Provider: Melony Crews RN) 0813 (Given - Provider: Tanner Cheema RN) Continuous [...] Procedural area)1206 ([facility] Unhold - Provider: Yodit Turner, AJ) nitroGLYcerin 50 mg in dextrose 5% 250 [...] than 90 mmHG AND call provider, Routine 1939 (New Bag - Provider: Melony Crews RN)2030 (Rate/Dose Change - Provider: Melony Crews RN)2130 (Rate/Dose Change - Provider: Melony Crews RN)2232 (Rate/Dose Change - Provider: Melony Crews RN) 0005 (Rate/Dose Change - Provider: Melony Crews RN)0047 (Stopped - Provider: Melony Crews RN)1106 ([facility] Hold - Provider: Admin Adt - Reason: Transfer to a Procedural area)1206 ([facility] Unhold - Provider: Yodit Turner, AJ) sodium chloride 0.9% infusion () 100 mL/hr, [...] area)1313 ([facility] Unhold - Provider: Admin Adt) clopidogreL (Plavix) tablet (CANCELED) ONCE PRN, Starting on Sat11/17/19 at 1136, Until Sat11/17/19 at 1206, Intra-Operative (Intra-Procedure), Routine 113 (Given - Provider: Luca Chavez) fentaNYL 50 [...] - Reason: Transfer to a Procedural area)1206 ([facility] Unhold - Provider: Yodit Turner RN) iohexoL (OMNIPAQUE) 350 mg/mL solution (CANCELED) ONCE PRN, Starting on Sat11/17/19 at 1203, Until Sat11/17/19 at 1206, Cath (Intra-Procedure), Routine 1203 (Given - Provider: Izabela Emery MD - Comment: Contrast in Assistant Grocery Store Manager) lidocaine (XYLOCAINE) 10 mg/mL (1 %) injection [...] Routine 2132 (Given - Provider: Melony Crews, AJ) melatonin tablet 6 mg 6 mg, Oral, NIGHTLY PRN, Starting on Sat11/17/19 at 2159, Until Sat11/18/19 at 2102, sleep, Routine 2211 (Given - Provider: Melony Crews, RN - Comment: pt request just 1 pill) midazolam (PF) (VERSED) multi-dose injection (CANCELED) ONCE PRN, Starting on Sat11/17/19 at 1139, Until Sat11/17/19 at 1206, Cath (Intra-Procedure), Routine 1139 (Given - Provider: Luca Chaevz) nitroGLYcerin (Nitrostat) disintegrating tablet 0.4 mg 0.4 [...] 2040, Nausea 2039 (Given - Provider: Melony Crews RN) sodium chloride 0.9 % (flush) flush 5-20 mL 5-20 mL, Intravenous, EVERY 1 MIN PRN, Starting on Sat11/16/19 at 1908, Until Sat11/18/19 at 2102, flush, Flush pertains to all indwelling lines. Flush per protocol found in the job aid using the link provided on this medication record., Routine 1106 ([facility] Hold - Provider: Admin Adt - Reason: Transfer to a Procedural area)1313 ([facility] Unhold - Provider: Admin Adt) sodium chloride 0.9 % (flush) flush 5-20 mL 5-20 mL, Intravenous, EVERY 1 MIN PRN, Starting on Sat11/16/19 at 1908, Until Sat11/18/19 at 2102, flush, Flush pertains to all indwelling lines. Flush per protocol found in the job aid using the link provided on this medication record., Routine 1106 ([facility] Hold - Provider: Admin Adt - Reason: Transfer to a Procedural area)1313 ([facility] Unhold - Provider: Admin Adt) sodium chloride 0.9% infusion (CANCELED) CONTINUOUS PRN, Starting on Sat11/17/19 at 1121, Until Sat11/17/19 at 1206, Cath (Intra-Procedure) 1121 (New Bag - Provider: Luca Chavez - Comment: Assistant Grocery Store Manager FLush Line) verapamiL (ISOPTIN) injection (CANCELED) ONCE [...] Routine documented in this encounter Care Teams Coremaker Helper Relationship Specialty Start Date End Date Nelia Bone APRN PCP - General 08/05/14 10/24/22 documented as of this encounter
--- OUTSIDE RECORDS SUMMARY | 2024-01-24 00:21 | XMS_ITS | Encounter Summary ---
Author Organization Pending Sale To [facility] Address [facility] Maggie [place]ár[place] [address] Care Team Providers Care Glue Line Operator Name Role Phone Nelia Bone JUMANA Primary Care Provider [phone] Encounter Details Date Type Department Care Team (Latest Contact Info) Description 09/01/2017 - 09/01/2017 12:04 AM EDT Hospital Encounter Radiology Library at [facility] [place] [address] Gabriel Clemons III, MD [facility] [place] [address] Pain Discharge Disposition: Home Social History Tobacco [...] Associated Diagnosis Comments FILM LIBRARY STORAGE ONLY CT HEAD AND SPINE Routine 09/01/2017 12:00 AM EDT Pain documented in this encounter Results * Film Library- Storage Only CT Head And Spine (09/01/2017 12:00 AM EDT) Narrative YARITZA - 09/01/2017 1:17 PM EDT This exam is for storage only and is auto-finalizing. Gabriel Clemons III, MD IMAlessio FILM LIBRARY ORDERABLES Performing Organization Address City/State/[facility] Co de Phone Number [place], [place] documented in this encounter Visit Diagnoses Diagnosis Pain Generalized pain documented in this encounter Care Teams Glue Line Operator Relationship Specialty Start Date End Date Nelia Bone APRN PCP - General 08/05/14 10/24/22 documented as of this encounter
--- OUTSIDE RECORDS SUMMARY | 2024-01-24 00:21 | XMS_ITS | Encounter Summary ---
Author Organization Formerly [facility], Later [facility] [place] [address] Care Team Providers Care Medical Scientific Officer Name Role Phone Nelia Bone JUMANA Primary Care Provider [phone]- [phone] Encounter Details Date Type Department Care Team (Late st Contact Info) Description 11/16/2019 [place] [phone] Social History Tobacco Use Types Packs/Day Years [...] Procedure Name Priority Date/Time Associated Diagnosis Comments ECG SCAN Routine 11/16/2019 ECG SCAN Routine 11/16/2019 ECG SCAN Routine 11/16/2019 documented in this encounter Results * Scan Doc: ECG (11/16/2019) Tish E Sari LUMBER TALLIER MEDIA MGR SCAN EXT ORDR/RSLT * Scan Doc: ECG (11/16/2019) Tish E Sari LUMBER TALLIER MEDIA MGR SCAN EXT ORDR/RSLT * Scan Doc: ECG (11/16/2019) Historical Provider MEDIA MGR SCAN EX T ORDR/RSLT documented in this encounter Visit Diagnoses Not on filedocumented in this encounter Care Teams Medical Scientific Officer Relationship Specialty Start Date End Date Nelia Bone APRN PCP - General 08/05/14 10/24/22 documented as of this encounter
--- OUTSIDE RECORDS SUMMARY | 2024-01-24 00:21 | XMS_ITS | Encounter Summary ---
Author Organization [facility] Address [facility] [place] [address] Care Team Providers Care Cold Meat Cook Name Role Phone Nelia Bone JUMANA Primary Care Provider [phone]- [phone] Encounter Details Date Type Department Care Team (Latest Contact Info) Description 05/17/2016 10:00 AM EST Clinical Support Hematology/Oncology at [address] [phone] [facility] [place] [address] Dietary counseling Social History Tobacco Use Types Packs/Day Years Used Date Smoking Tobacco: Never Sex and Gender Information Value Date Recorded Sex Assigned at Not on file Gender Identity Not on file Sexual Orientation Not on file documented as of this encounter Last Filed Vital Signs Vital Sign Reading Time Taken Comments Blood Pressure - - Pulse - - Temperature - - Respiratory Rate - - Oxygen Saturation - - Inhaled Oxygen Concentration - - Weight 54.9 kg (121 lb 1.6 oz) 05/17/2016 10:02 AM EST Height - - Body Mass Index 23.25 03/01/2016 11:22 AM EST documented in this encounter Progress Notes * Aries Fre[address]man RD - 05/17/2016 10:[address] [facility] Initial Dietitian Assessment Seen By: Lashawn Freedman, MS, RD, 3D ARTIST, LD Referred by: Caron Rosario RN and [...] Wt: Wt Readings from Last 3 Encounters: 05/17/16 54.9 kg (121 lb 1.6 oz) 03/01/16 52.6 kg (116 lb) 02/24/15 58.5 kg (129 lb) Wt Readings from Last 3 Encounters: 03/01/16 52.6 kg (116 lb) 02/24/15 58.5 kg (129 lb) 08/05/14 56 kg (123 lb 8 oz) Wt Hx: UBW: % UBW: IBW: +/- 10% % IBW: BMI: 22.3 ___ Edema ___ Ascites ___Muscle wasting Calorie needs: 1000 - 1200 Protein needs: 63 Fluid needs: 1.2 L Food Intake: Am: Not too good this morning: morning meds w/ Juice, couple of prunes and piece of home made pumpkin bread Noon: Will eat at meal site once or twice a week. Small turkey pot pie, squash, tomato juice, water, chocolate cake and PB frosting. Pm: homemade pea soup w/ ham and crackers Snacks: may snack in evening: Fluids: doesn't drink coffee/tea. Reports I should drink more water than I do. Supplements/Frequency: has never tried them. ___ Ensure/Plus ___ Boost/Plus ___ CIB - strawberry - may have one/d. Divides it with dinner and at HS. ___ Other: Teas, vitamins, or other nutritional supplements: FeSO4, MVI, Ca Food allergies or avoidances: knfa, doesn't care for oysters or liver Appetite: 8-9/10 scale. She likes to eat. Nausea: n/a Vomiting: n/a Chewing: denies Dentition: n/a Swallowing: denies Taste Changes: Denies Bowels: Baseline: varies, does eat prunes at breakfast and dinner to help with regularity. Other: ulcer on heel in middle of year, reports it has healed Dec 2015. Food availability/purchasing, meal planning and preparation: She lives alone. Depression: Social Support: Has 3 living dtrs ([facility], [place], [place]), lost one dtr ~ 8 yrs ago to suicide (? depression). Oldest Dtr lives couple of miles from her. Sees her weekly, if not more. Economic Issues: [place]: $194/mos Physical Activity: Sr. Exercise, BIW. Wii bowls at [employer] twice a month, now active with removing snow off her car and scraping windows. Lives in [facility] [place] and walks to a lot of destinations ([place], post office, shops). 2nd floor apt. Level [...] to prepare it. She doesn't own a sweeping compound blender, she can serve it hot like a hot cocoa. If taking all 8 oz at one sitting impacts intake for meals, recommended dividing it in half and drinking it in between meals. 05/17/16: Weight up per our scale. Her home scale reports stable. She has incorporated a daily CIB. Divides this with dinner and HS. She continues to stay physically active with BIW senior exercise andmonprakash kevin. She no longer has a car and does walk to more places. She is very proud that she was able to donate a pint of blood on 05/11/16. Provided support and encouragement. Nutrition Intervention: ? Increase caloric needs: discussed ? Modify diet consistency: ? Increase frequency of meals and snacks: discussed ? Need for supplements Nutrition Goals: Educational Handouts provided: -- CIB sample and coupon Other Recommendations: ? Monitoring and Evaluation: Will follow up with Mrs. Shirley when she returns to clinic to re-evaluate in Feb, I have provided her with my card and contact information should she have any questions in the mean time. Thank you for this consult. documented in this encounter Plan of Treatment Not on file documented as of this encounter Visit Diagnoses Diagnosis Dietary counseling Dietary surveillance and counseling documented in this encounter Care Teams Cold Meat Cook Relationship Specialty Start Date End Date Nelia Bone APRN PCP - General 08/05/14 10/24/22 documented as of this encounter
--- OUTSIDE RECORDS SUMMARY | 2024-01-24 00:21 | XMS_ITS | Encounter Summary ---
Author Organization [facility] [place] [address] Care Team Providers Care Sifter And Miller Name Role Phone Nelia Bone APRN Primary Care Provider [phone]- [phone] Encounter Details Date Type Department Care Team (Late st Contact Info) Description 11/16/2019 [place] [phone] Lisa Robles MD [address] [address] Social History Tobacco Use Types Packs/Day Years [...] on filedocumented in this encounter Care Teams Sifter And Miller Relationship Specialty Start Date End Date Nelia Bone APRN PCP - General 08/05/14 10/24/22 documented as of this encounter
--- OUTSIDE RECORDS SUMMARY | 2024-01-24 00:21 | XMS_ITS | Encounter Summary ---
Author Organization [facility] [address] Care Team Providers Care Knitting Machine Operator Helper Name Role Phone Nelia Bone Jodie DENNEY Primary Care Provider [phone]- [phone] Reason for Visit * Auth/Cert Specialty Diagnoses / Procedures Referred By Sima t Referred To Contact Diagnoses NSTEMI (non-ST elevated myocardial infarction) NSTEMI Referral ID Status Reason Start Date Expiration Date Visits Re quested Visits Authorized [id number] 1 1 Encounter Details Date Type Department Care Team (Latest Contact Info) Description 11/17/2019 5:15 AM EDT - 11/17/2019 11:59 PM EDT Hospital Encounter [place] [phone] Discharge Disposition: Home Social History Tobacco Use [...] Free Text Med - Multiple Vitamin 04/28/2010 lisinopril (PRINIVIL;ZESTRIL) 20 mg tablet Take 10 mg by mouth daily. 11/18/2019 documented as of this encounter Plan of Treatment Not on file documented as of this encounter Procedures Procedure Name Priority Date/Time Associated Diagnosis Comments ECHO COMPLETE Routine 11/17/2019 10:05 AM EDT Hypertension, unspecified type Non-ST elevation myocardial infarction (NSTEMI) documented in this encounter Results * ECHO COMPLETE (11/17/2019 10:05 AM EDT) EF 69 HEARTLAB SYSTEM Anatomical Region Laterality Modality Other 11/17/2019 Narrative 11/17/2019 11:42 AM EDT Procedure: ?Transthoracic Echocardiogram Patient: ?CINDY Lamb ?(Age): 1940(79y) Med Rec#: ? [id number] ?Sex: ?F ? Site Loc: ? [facility] ?Ht / Wt: ??147(cm)/51(kg) Pt. Loc: ?[facility] ? BSA: ?1.42 Study Date: ?? 11/17/2019 ?Pt. Type: Inpatient Tape: ? Referring: [email or web address] Referring: RUBEN SWENSON Reading: Teo Leong ([id number]) Coal Sample Tester: Zulema Bruner Interpreting Fellow: Connie Tucker ([id number]) Diagnosis: *Essential (primary) hypertension (I10) Rhythm: ? [...] Vmax ?0.76 ? m/sec ? MV deceleration [id number] ?msec ? MV A-wave Vmax ?1.09 ? [...] ? Mid-Inferior ?Normal ? Mid-Inferoseptal ?Normal ? [place]-Septal ? Normal ? [place]-Anterior ? Normal ? [place]-Lateral ?Normal ? [place]-Inferior ? Normal ? [place]-Tip ?Normal ? This report has been electronically signed by: Teo Leong MD ? 11/17/2019 11:41:17 Images reviewed and interpretation verified [facility] Cardiac Ultrasound [facility] Procedure Note Teo Leong MD - 11/17/2019 Procedure: Transthoracic Echocardiogram Patient: CINDY DERAS(Age): 1940(79y) [facility] Rec#: [id number] Sex: F Site Loc: [facility] Ht / Wt: 147(cm)/51(kg) Pt. Loc: [facility] BSA: 1.42 Study Date: 11/17/2019 Pt. Type: Inpatient Tape: Referring: FROYLANRUPALIDWAINE Referring: RUBEN SWENSON Reading: Teo Leong ([id number]) Coal Sample Tester: Zulema Bruner Interpreting Fellow: Connie Tucker ([id number]) Diagnosis: *Essential (primary) hypertension (I10) Rhythm: Sinus [...] MV E-wave Vmax 0.76 m/sec MV deceleration [id number] msec MV A-wave Vmax 1.09 m/sec MV [...] Normal Mid-Posterolateral Normal Mid-Inferior Normal Mid-Inferoseptal Normal [place]-Septal Normal [place]-Anterior Normal [place]-Lateral Normal [place]-Inferior Normal [place]-Tip Normal This report has been electronically signed by: Teo Leong MD 11/17/2019 11:41:17 Images reviewed and interpretation verified [facility] Ruben Swenson MD ECHO ORDERABLES documented in this encounter Visit Diagnoses Not on filedocumented in this encounter Care Teams Knitting Machine Operator Helper Relationship Specialty Start Date End Date Nelia Bone APRN PCP - General 08/05/14 10/24/22 documented as of this encounter
--- OUTSIDE RECORDS SUMMARY | 2024-01-24 00:22 | XMS_ITS | Encounter Summary ---
Author Organization [facility] Address [facility] [place] [address] Care Team Providers Care Manager Army Name Role Phone Laura Schuler MD Primary Care Provider [phone] Encounter Details Date Type Department Care Team (Late st Contact Info) Description 04/28/2010 11:30 AM EST Follow-Up Radiation Oncology at [address] [place] [address] [address] Melendez [address] RADIATION ONCOLOGY [place], [place] [phone] Discharge Disposition: Home Social History Tobacco Use [...] on filedocumented in this encounter Care Teams Manager Army Relationship Specialty Start Date End Date Laura Schuler MD [address] [place] [address] PCP - General 02/07/10 08/04/14 documented as of this encounter
--- OUTSIDE RECORDS SUMMARY | 2024-01-24 00:22 | XMS_ITS | Encounter Summary ---
Author Organization [facility] Address [facility] [place] [address] Care Team Providers Care Parent Coach Name Role Phone JimmyNelia billy Jodie DENNEY Primary Care Provider [phone]- [phone] Encounter Details Date Type Department Care Team (Late st Contact Info) Description 11/30/2014 - 11/30/2014 11:59 PM EDT Hospital Encounter Radiology Library at [facility] [place] [address] [facility] Discharge Disposition: Home Social History Tobacco Use [...] Take 10 mg by mouth daily. 11/18/2019 hydrochlorothiazide (HYDRODIURIL) 12.5 mg tablet 04/28/2010 03/01/2016 documented as of this encounter Plan of Treatment Not on file documented as of this encounter Procedures Procedure Name Priority Date/Time Associated Diagnosis Comments FILM LIBRARY STORAGE ONLY MAMMO Routine 11/30/2014 12:00 AM EDT Screening documented in this encounter Results * Film Library- Storage only Mammo (11/30/2014 12:00 AM EDT) Narrative [facility] - 01/21/2015 1:56 PM EST See PACS for result report. [facility] FILM LIBRARY ORD ERABLES Performing Organization Address City/State/[place] Co de Phone Number [place], [place] documented in this encounter Visit Diagnoses Diagnosis Screening Screening for unspecified condition documented in this encounter Care Teams Parent Coach Relationship Specialty Start Date End Date Nelia Bone APRN PCP - General 08/05/14 10/24/22 documented as of this encounter
--- OUTSIDE RECORDS SUMMARY | 2024-01-24 00:22 | XMS_ITS | Encounter Summary ---
[place] [address] Care Team Providers Care Literacy Tutor Name Role Phone Laura Schuler MD Primary Care Provider [phone] Reason for Visit * Reason Comments Radiation Follow-up breast cancer Encounter Details Date Type Department Care Team (Late st Contact Info) Description 07/27/2010 3:00 PM EDT Office Visit Radiation Oncology at [address] [phone] Norma Melendez APRN [address] [place] [address] RADIATION ONCOLOGY [place], [place] [id number] Breast cancer (Primary Dx) Discharge Disposition: Home Social History Tobacco Use Types Packs/Day Years Used Date Smoking Tobacco: Never Sex and Gender Information Value Date Recorded Sex Assigned at Not on file Gender Identity Not on file Sexual Orientation Not on file documented as of this encounter Progress Notes * Alesha Camp - 09/19/2010 12:13 PM EDT * Norma Melendez APRN - 07/30/2010 5:10 PM EDT Mrs Shirley is seen in clinic for review of her Journey Forward Cancer Survivor Care Plan. She is part of a [facility] study to which she agreed to participate. The care plan will be scanned into [facility]. Mrs Shirley and her PCP will be given a copy. documented in this encounter Procedure Notes * Provider, Scanning - 07/20/2011 3:15 PM EDTAssociated Order(s): SCAN DOC: LAB * Provider, Scanning - 03/30/2011 3:00 PM ESTAssociated Order(s): SCAN DOC: MAMMOGRAM documented in this encounter Plan of Treatment Not on file documented as of this encounter Procedures Procedure Name Priority Date/Time Associated Diagnosis Comments LAB SCAN 07/20/2011 3:15 PM EDT MAMMOGRAM SCAN 03/30/2011 3:00 PM EST documented in this encounter Results * SCAN DOC: LAB (07/20/2011 3:15 PM EDT) Narrative 07/20/2011 3:15 PM EDT Procedure Note Provider, Scanning - 07/20/2011 3:15 PM EDT Scanning Provider MEDIA MGR SCAN EXT O RDR/RSLT * SCAN DOC: MAMMOGRAM (03/30/2011 3:00 PM EST) Anatomical Region Laterality Modality Other Narrative 03/30/2011 3:05 PM EST Procedure Note Provider, Scanning - 03/30/2011 3:00 PM EST Scanning Provider MEDIA MGR SCAN EXT O RDR/RSLT documented in this encounter Visit Diagnoses Diagnosis Breast cancer- Primary Malignant neoplasm of breast (female), unspecified site documented in this encounter Care Teams Literacy Tutor Relationship Specialty Start Date End Date Laura Schuler MD [address] [place] [address] PCP - General 02/07/10 08/04/14 documented as of this encounter
--- OUTSIDE RECORDS SUMMARY | 2024-01-24 00:22 | XMS_ITS | Encounter Summary ---
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) Discharge Disposition: Home Social History Tobacco Use Types Packs/Day Years Used Date Smoking Tobacco: Never Sex and Gender Information Value Date Recorded Sex Assigned at Not on file Gender Identity Not on file Sexual Orientation Not on file documented as of this encounter Last Filed Vital Signs Vital Sign Reading Time Taken Comments Blood Pressure 128/67 07/31/2012 1:25 PM EDT Pulse 87 07/31/2012 1:25 PM EDT Temperature 36.7 ??C (98.1 ??F) 07/31/2012 1:25 PM ED T Respiratory Rate 18 07/31/2012 1:25 PM EDT Oxygen Saturation 99% 07/31/2012 1:25 PM EDT Inhaled Oxygen Concentration - - Weight 68.9 kg (152 lb) 07/31/2012 1:25 PM EDT Height 153.7 cm (5' 0.51) 07/31/2012 1:25 PM ED T Body Mass Index 29.19 07/31/2012 1:25 PM EDT documented in this encounter Progress Notes * Andrez Dean MD - 07/31/2012 12:52 PM EDT DIAGNOSIS: DCIS, upper inner quadrant of right breast, status post resection. SUBJECTIVE: Katlyn comes in today for followup. Since I last saw her she's had her mammograms in late April and they were fine. She's also had bilateral cataract replacement and is doing well with that. She is feeling well and not having any particular problems. Past history and social history are reviewed and unchanged. She still has concern about her husbandsmoking post coronary artery surgery Review of Systems Constitutional: Negative for fever, chills, activity change, fatigue and unexpected weight change. HENT: Negative for sore throat, mouth sores and trouble swallowing. Eyes: Negative. Respiratory: Negative for cough, shortness of breath and wheezing. Cardiovascular: Negative for chest pain, palpitations and leg swelling. Gastrointestinal: Negative for nausea, vomiting, abdominal pain, diarrhea, constipation and abdominal distention. Genitourinary: Negative for dysuria and difficulty urinating. Musculoskeletal: Negative. Skin: Negative. Neurological: Negative. Hematological: Negative for adenopathy. Physical Exam Constitutional: She is oriented to person, place, and time. She appears well- developed and well-nourished. HENT: Head: Normocephalic and atraumatic. Eyes: Conjunctivae and EOM are normal. Pupils are equal, round, and reactive to light. Neck: Neck supple. No JVD present. No thyromegaly present. Cardiovascular: Normal rate, regular rhythm and normal heart sounds. Pulmonary/Chest: Effort normal and breath sounds normal. No respiratory distress. She has no wheezes. She has no rales. Abdominal: She exhibits no distension and no mass. There is no hepatosplenomegaly. No tenderness. She has no rebound and no guarding. Lymphadenopathy: She has no cervical adenopathy. She has no axillary adenopathy. No inguinal adenopathy present. No supraclavicular adenopathy present. Neurological: She is alert and oriented to person, place, and time. No cranial nerve deficit. Coordination normal. Skin: Skin is warm and dry. No rash noted. Examination of the patient's chest wall shows no dominant mass in either breast and both axilla areclear. Laboratory is reviewed. Random glucose is 118 creatinine is 1.1 electrolytes are normal and liver tests are normal with an ALP of 87 CBC shows a white count of 5.5 hemoglobin 11.6 and crit 37.3 and platelet count of 242 ASSESSMENT: Patient is doing well and has an extremely low risk of systemic recurrence, far lower than 1%. In this regard, I feel yearly followup would be indicated. Is doing well with no evidence recurrent breast cancer. PLAN: Follow up in a year with a CBC and CMP and mammography. She'll let us know if problems develop in the interim. documented in this encounter Procedure Notes * Provider, Scanning - 07/31/2013 2:41 PM EDTAssociated Order(s): SCAN DOC: LAB documented in this encounter Plan of Treatment Not on file documented as of this encounter Procedures Procedure Name Priority Date/Time Associated Diagnosis Comments LAB SCAN 07/31/2013 2:41 PM EDT documented in this encounter Results * SCAN DOC: LAB (07/31/2013 2:41 PM EDT) Narrative 07/31/2013 2:41 PM EDT Procedure Note Provider, Scanning - 07/31/2013 2:41 PM EDT Scanning Provider MEDIA MGR SCAN EXT O RDR/RSLT documented in this encounter Visit Diagnoses Diagnosis DCIS (ductal carcinoma in situ) of breast- Primary Carcinoma in situ of breast documented in this encounter Care Teams Drum Sander Offbearer Relationship Specialty Start Date End Date Laura Schuler MD [address] [place] [address] PCP - General 02/07/10 08/04/14 documented as of this encounter
--- OUTSIDE RECORDS SUMMARY | 2024-01-24 00:22 | XMS_ITS | Encounter Summary ---
Author Organization [facility] [place] [address] Care Team Providers Care Ferruler Name Role Phone Laura Schuler MD Primary Care Provider [phone] Encounter Details Date Type Department Care Team (Late st Contact Info) Description 04/17/2010 1:30 PM EST Procedure visit [place] [address] Social History Tobacco Use Types Packs/Day Years Used Date Smoking Tobacco: Never Assessed Sex and Gender Information Value Date Recorded Sex Assigned at Not on file Gender Identity Not on file Sexual Orientation Not on file documented as of this encounter Plan of Treatment Not on file documented as of this encounter Visit Diagnoses Not on filedocumented in this encounter Care Teams Ferruler Relationship Specialty Start Date End Date Laura Schuler MD [address] [place] [address] PCP - General 02/07/10 08/04/14 documented as of this encounter
--- OUTSIDE RECORDS SUMMARY | 2024-01-24 00:22 | XMS_ITS | Encounter Summary ---
Author Organization [facility] [place] [address] Care Team Providers Care Communication Professor Name Role Phone Laura Schuler MD Primary Care Provider [phone] Reason for Visit * Reason Comments Breast Cancer Encounter Details Date Type Department Care Team (Late st Contact Info) Description 07/31/2011 3:30 PM EDT Follow-Up Hematology Oncology at [address] [phone] Andrez Dean MD [address] [place] [address] [phone] Breast cancer (Primary Dx); Infection Discharge Disposition: Home Social History Tobacco Use Types Packs/Day Years Used Date Smoking Tobacco: Never Sex and Gender Information Value Date Recorded Sex Assigned at Not on file Gender Identity Not on file Sexual Orientation Not on file documented as of this encounter Last Filed Vital Signs Vital Sign Reading Time Taken Comments Blood Pressure 129/66 07/31/2011 3:21 PM EDT Pulse 87 07/31/2011 3:21 PM EDT Temperature 36.2 ??C (97.2 ??F) 07/31/2011 3:21 PM ED T Respiratory Rate 16 07/31/2011 3:21 PM EDT Oxygen Saturation 97% 07/31/2011 3:21 PM EDT Inhaled Oxygen Concentration - - Weight 69 kg (152 lb 1.9 oz) 07/31/2011 3:21 PM EDT Height 153.7 cm (5' 0.51) 07/31/2011 3:21 PM ED T Body Mass Index 29.21 07/31/2011 3:21 PM EDT documented in this encounter Progress Notes * Andrez Dean MD - 07/31/2011 4:25 PM EDT DIAGNOSIS: DCIS, upper inner quadrant of right breast, status post resection. SUBJECTIVE: Katlyn comes in today for followup. She's been doing well for the past year. She did have her mammography in March and that was fine. A couple days ago however she noticed some red swelling on the back of her left hand. She's not having any fever with that but thinks it may be a bug bite. It is slowly getting worse however. Other than that review systems is negative Review of Systems Constitutional: Negative for fever, [...] is warm and dry. No rash noted. Patient's lumpectomy site does have a lump which has bee recently evaulated and felt to be a hematoma. It is smaller than last visit today.. Laboratory today is reviewed. She is doing well with normal CBC and CMP. ASSESSMENT: Patient is doing well and has an extremely low risk of systemic recurrence, far lower than 1%. In this regard, I feel yearly followup would be indicated. We'll arrange for that. Additionally she may have a early cellulitis on the back of her left hand. Considering that we'll start her on some Keflex 500milligrams by mouth 4 times a day. She is goingto try to get her ringis off that hand tonight when she gets home in case the swelling gets worse. I told her if this gets worse at all she would need it further evaluated. Risks side effects of Keflex were gone over in detail and she call us if she has any problems with the medication. PLAN: Follow up in a year with a CBC and CMP and mammography. Keflex 500 mg by mouth 4 times a day for 7 days. Her regular physician we'll order her mammogram for next March and she'll call if she has any problems in the interim. To keep close watch on her hand and get reevaluated if things don'tget steadily better. documented in this encounter Procedure Notes * Provider, Scanning - 07/30/2012 3:04 PM EDTAssociated Order(s): SCAN DOC: LAB * Provider, Scanning - 05/27/2012 4:08 PM EDTAssociated Order(s): SCAN DOC: MAMMOGRAM documented in this encounter Plan of Treatment Not on file documented as of this encounter Procedures Procedure Name Priority Date/Time Associated Diagnosis Comments LAB SCAN 07/30/2012 3:04 PM EDT MAMMOGRAM SCAN 05/27/2012 4:08 PM EDT documented in this encounter Results * SCAN DOC: LAB (07/30/2012 3:04 PM EDT) Narrative 07/30/2012 3:04 PM EDT Procedure Note Provider, Scanning - 07/30/2012 3:04 PM EDT Scanning Provider MEDIA MGR SCAN EXT O RDR/RSLT * SCAN DOC: MAMMOGRAM (05/27/2012 4:08 PM EDT) Anatomical Region Laterality Modality Other Narrative 05/27/2012 5:22 PM EDT Procedure Note Provider, Scanning - 05/27/2012 4:08 PM EDT Scanning Provider MEDIA MGR SCAN EXT O RDR/RSLT documented in this encounter Visit Diagnoses Diagnosis Breast cancer- Primary Malignant neoplasm of breast (female), unspecified site Infection Unspecified infectious and parasitic diseases documented in this encounter Care Teams Communication Professor Relationship Specialty Start Date End Date Laura Schuler MD [address] [place] [address] PCP - General 02/07/10 08/04/14 documented as of this encounter
--- OUTSIDE RECORDS SUMMARY | 2024-01-24 00:22 | XMS_ITS | Encounter Summary ---
Author Organization [facility] [place] [address] Care Team Providers Care Pipeline Operator Name Role Phone Laura Schuler MD Primary Care Provider [phone] Encounter Details Date Type Department Care Team (Late st Contact Info) Description 04/17/2010 2:05 PM EST Procedure visit [place] [address] Social History Tobacco Use Types Packs/Day Years Used Date Smoking Tobacco: Never Assessed Sex and Gender Information Value Date Recorded Sex Assigned at Not on file Gender Identity Not on file Sexual Orientation Not on file documented as of this encounter Plan of Treatment Not on file documented as of this encounter Visit Diagnoses Not on filedocumented in this encounter Care Teams Pipeline Operator Relationship Specialty Start Date End Date Laura Schuler MD [address] [place] [address] PCP - General 02/07/10 08/04/14 documented as of this encounter
--- OUTSIDE RECORDS SUMMARY | 2024-01-24 00:22 | XMS_ITS | Encounter Summary ---
Author Organization [facility] Address [facility] [place] [address] Care Team Providers Care Ion Exchange Operator Name Role Phone Nelia Bone APRN Primary Care Provider [phone] Encounter Details Date Type Department Care Team (Late st Contact Info) Description 01/21/2015 External Results Radiology Library at [facility] [place] [phone] Provider, Scanning Social History Tobacco Use Types Packs/Day Years Used Date Smoking Tobacco: Never Sex and Gender Information Value Date Recorded Sex Assigned at Not on file Gender Identity Not on file Sexual Orientation Not on file documented as of this encounter Plan of Treatment Not on file documented as of this encounter Procedures Procedure Name Priority Date/Time Associated Diagnosis Comments MAMMOGRAM SCAN Routine 11/30/2014 documented in this encounter Results * Scan Doc: Mammogram (11/30/2014) Anatomical Region Laterality Modality Other Scanning Provider MEDIA MGR SCAN EXT O RDR/RSLT documented in this encounter Visit Diagnoses Not on filedocumented in this encounter Care Teams Ion Exchange Operator Relationship Specialty Start Date End Date Nelia Bone APRN PCP - General 08/05/14 10/24/22 documented as of this encounter
--- OUTSIDE RECORDS SUMMARY | 2024-01-24 00:22 | XMS_ITS | Encounter Summary ---
Author Organization [facility] [place] [address] Care Team Providers Care Ship Pilot Name Role Phone Nelia Bone JUMANA Primary Care Provider [phone] Reason for Visit * Reason Comments Breast Cancer Encounter Details Date Type Department Care Team (Late st Contact Info) Description 08/05/2014 2:30 PM EDT Follow-Up Hematology/Oncology at [address] [phone] Andrez eDan MD [address] [place] [phone] Breast cancer, right breast Discharge Disposition: Home Social History Tobacco Use Types Packs/Day Years Used Date Smoking Tobacco: Never Sex and Gender Information Value Date Recorded Sex Assigned at Not on file Gender Identity Not on file Sexual Orientation Not on file documented as of this encounter Last Filed Vital Signs Vital Sign Reading Time Taken Comments Blood Pressure 116/57 08/05/2014 2:38 PM EDT Pulse 75 08/05/2014 2:38 PM EDT Temperature 36.6 ??C (97.9 ??F) 08/05/2014 2:38 PM ED T Respiratory Rate 18 08/05/2014 2:38 PM EDT Oxygen Saturation 100% 08/05/2014 2:38 PM EDT Inhaled Oxygen Concentration - - Weight 56 kg (123 lb 8 oz) 08/05/2014 2:38 PM ED T Height 153.7 cm (5' 0.51) 08/05/2014 2:38 PM ED T Body Mass Index 23.71 08/05/2014 2:38 PM EDT documented in this encounter Progress Notes * Andrez Dean MD - 08/06/2014 12:52 PM EDT DIAGNOSIS: DCIS, upper inner quadrant of right breast, status post resection. Subjective: Katlyn comes in today for followup. Overall she is feeling better but does tell me she went ahead and did get . She also tells me she was on some iron and believes that her blood counts were better and I did confirm that today. Otherwise, review of systems was negative. Past history and social history are reviewed above Review of Systems Constitutional: Negative for fever, [...] in either breast and both axilla areclear. Review of her blood counts today shows she has a normal calcium at 8.8, creatinine is still a little up at 1.3, ALP however is normal at 68. CBC shows a white count of 5.38, hemoglobin is up to 12.3, with hematocrit at 37.8, and platelet count is 227. Assessment/Plan: Katlyn is doing well and has no evidence of recurrent breast cancer. We will see her back in six months' time with a CBC and CMP and she will call if there are problems or issues in the interim. documented in this encounter Plan of Treatment Not on file documented as of this encounter Procedures Procedure Name Priority Date/Time Associated Diagnosis Comments LAB SCAN 02/22/2015 12:00 AM EST documented in this encounter Results * SCAN DOC: LAB (02/22/2015 12:00 AM EST) Scanning Provider MEDIA MGR SCAN EXT O RDR/RSLT documented in this encounter Visit Diagnoses Diagnosis Breast cancer, right breast Malignant neoplasm of breast (female), unspecified site documented in this encounter Care Teams Ship Pilot Relationship Specialty Start Date End Date Nelia Bone APRN PCP - General 08/05/14 10/24/22 documented as of this encounter
--- OUTSIDE RECORDS SUMMARY | 2024-01-24 00:22 | XMS_ITS | Encounter Summary ---
Author Organization [facility] [place] [address] Care Team Providers Care Manual Arts Teacher Name Role Phone Laura Schuler MD Primary Care Provider [phone] Reason for Visit * Reason Onset Date Comments Medication Refill 03/26/2013 Encounter Details Date Type Department Care Team (Late st Contact Info) Description 03/26/2013 Refill Hematology Oncology at [address] [phone] Yodit Blue RN Social History Tobacco Use Types Packs/Day Years Used Date Smoking Tobacco: Never Sex and Gender Information Value Date Recorded Sex Assigned at Not on file Gender Identity Not on file Sexual Orientation Not on file documented as of this encounter Miscellaneous Notes * Telephone Encounter - Yodit Blue RN - 03/26/2013 11:35 AM EST [employer] Prior Authorization Request Form for Afinitor (everolimus) received by fax and forwarded to [facility] where the patient is seen for submission after Dr. Dean filled in portions of form required of . [facility] FAX: [phone] documented in this encounter Plan of Treatment Not on file documented as of this encounter Visit Diagnoses Not on filedocumented in this encounter Care Teams Manual Arts Teacher Relationship Specialty Start Date End Date Laura Schuler MD [address] [place] [address] PCP - General 02/07/10 08/04/14 documented as of this encounter
--- OUTSIDE RECORDS SUMMARY | 2024-01-24 00:22 | XMS_ITS | Encounter Summary ---
Author Organization [facility] [place] [address] Care Team Providers Care Assistant Program Director Name Role Phone Laura Schuler MD Primary Care Provider Encounter Details Date Type Department Care Team (Late st Contact Info) Description 04/29/2014 Orders Only Hematology Oncology at [address] [phone] Andrez Dean MD [address] [place] [phone] Malignant neoplasm of female breast, unspecified laterality Social History Tobacco Use Types Packs/Day Years Used Date Smoking Tobacco: Never Sex and Gender Information Value Date Recorded Sex Assigned at Not on file Gender Identity Not on file Sexual Orientation Not on file documented as of this encounter Plan of Treatment Not on file documented as of this encounter Visit Diagnoses Diagnosis Malignant neoplasm of female breast, unspecified laterality documented in this encounter Care Teams Assistant Program Director Relationship Specialty Start Date End Date Laura Schuler MD [address] [place] [address] PCP - General 02/07/10 08/04/14 documented as of this encounter
--- OUTSIDE RECORDS SUMMARY | 2024-01-24 00:22 | XMS_ITS | Encounter Summary ---
Author Organization [facility] Address [facility] [place] [address] Care Team Providers Care Stove Cleaner Name Role Phone Laura Schuler MD Primary Care Provider [phone] Encounter Details Date Type Department Care Team (Late st Contact Info) Description 05/27/2014 - 05/27/2014 11:59 PM EDT Hospital Encounter Radiology Library at [facility] [place] [place] [phone] [facility] Discharge Disposition: Home Social History Tobacco Use Types Packs/Day Years Used Date Smoking Tobacco: Never Sex and Gender Information Value Date Recorded Sex Assigned at Not on file Gender Identity Not on file Sexual Orientation Not on file documented as of this encounter Medications at Time of Discharge Medication Sig Dispensed Refills Start Date End Date Calcium 500 mg Tab Take 600 mg [...] Comments FILM LIBRARY STORAGE ONLY MAMMO Routine 05/27/2014 12:00 AM EDT Screening documented in this encounter Results * Film Library- Storage only Mammo (05/27/2014 12:00 AM EDT) Narrative RAD - 01/21/2015 1:50 PM EST See PACS for result report. Dr Preston [facility] FILM LIBRARY ORD ERABLES [place], [place] documented in this encounter Visit Diagnoses Diagnosis Screening Screening for unspecified condition documented in this encounter Care Teams Stove Cleaner Relationship Specialty Start Date End Date Laura Schuler MD [address] [place] [address] PCP - General 02/07/10 08/04/14 documented as of this encounter
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
--- OUTSIDE RECORDS SUMMARY | 2024-01-24 00:22 | XMS_ITS | Encounter Summary ---
Author Organization [facility] [place] [address] Care Team Providers Care Assistant Film Editor Name Role Phone Nelia Bone BULB PLANTER Primary Care Provider [phone] Encounter Details Date Type Department Care Team (Late st Contact Info) Description 03/01/2016 11:00 AM EST Office Visit Hematology/Oncology at [address] [phone] Melony Ordonez APRN [address] [facility] [place] [address] Malignant neoplasm of right female breast, unspecified site of breast Social History Tobacco Use Types Packs/Day Years Used Date Smoking Tobacco: Never Sex and Gender Information Value Date Recorded Sex Assigned at Not on file Gender Identity Not on file Sexual Orientation Not on file documented as of this encounter Last Filed Vital Signs Vital Sign Reading Time Taken Comments Blood Pressure 127/54 03/01/2016 11:22 AM EST Pulse 73 03/01/2016 11:22 AM EST Temperature 35 ??C (95 ??F) 03/01/2016 11:22 AM EST Respiratory Rate 16 03/01/2016 11:22 AM EST Oxygen Saturation 100% 03/01/2016 11:22 AM EST Inhaled Oxygen Concentration - - Weight 52.6 kg (116 lb) 03/01/2016 11:22 AM EST Height 153.7 cm (5' 0.51) 03/01/2016 11:[address] Body Mass Index 22.27 03/01/2016 11:22 AM EST documented in this encounter Progress Notes * Melony Ordonez, BULB PLANTER - 03/01/2016 11:00 AM EST Images from the original note were not included. Subjective: Patient ID: Katlyn Shirley is a 75 y.o. female. HPI Comments: Katlyn is here for follow-up. She is now 5+ years out from her Stage 0 breast cancer. She is feeling well and looking forward to being with her daughter and grandchildren over the holidays. She has a lesion in her vagina/labia that she wants checked, as well as her R foot for which she has received quite a bit of care to heal from an ulcer over the past few months. Patient Active Problem List Diagnosis ??? Hypertension ??? Osteoporosis ??? Breast cancer, right breast Right breast cancer upper inner quadrant: pTisNoMo-- DCIS, intermediate grade, + necrosis, 2.1 cm, ER+/OK+ 05/30/2009 biopsy Reexcision on May 30, 2009. hematoma surgical site Radiation therapy: 6100 cGy in 33 FRACTIONS completed 09/05/2009 BP 127/54 (Patient Position: Sitting) Pulse 73 Temp 35 ??C (95 ??F) (Oral) Resp 16 Ht 153.7 cm (5' 0.51) Wt 52.6 kg (116 lb) SpO2 100% BMI 22.27 kg/m2 Wt Readings from Last 3 Encounters: 03/01/16 52.6 kg (116 lb) 02/24/15 58.5 kg (129 lb) 08/05/14 56 kg (123 lb 8 oz) Review of Systems Constitutional: Positive for unexpected weight change (down 13lbs without trying). Negative for appetite change (although she notes that she doesn't get enough fluids). HENT: Negative. Eyes: Negative. Respiratory: Positive for shortness of breath (with extreme exertion). Negative for cough and wheezing. Cardiovascular: Negative. Gastrointestinal: Positive for blood in stool (when straining) and constipation (oocas). Negative for abdominal distention, abdominal pain, diarrhea and nausea. Genitourinary: Positive for genital sores (noticed in Sept- states it has been uncomfortable and bothering her). Skin: Negative. Neurological: Negative. Psychiatric/Behavioral: Negative. Objective: Physical Exam Constitutional: She is oriented to person, place, and time. She appears well- developed and well-nourished. HENT: Mouth/Throat: No oropharyngeal exudate. Eyes: Conjunctivae and EOM are normal. Pupils are equal, round, and reactive to light. Neck: Normal range of motion. Neck supple. Cardiovascular: Normal rate and regular rhythm. Pulmonary/Chest: Effort normal and breath sounds normal. Right breast exhibits no inverted nipple, no mass, no nipple discharge, no skin change and no tenderness. Left breast exhibits no inverted nipple, no mass, no nipple discharge, no skin change and no tenderness. Abdominal: Soft. She exhibits no mass. There is no guarding. Genitourinary: Pelvic exam was performed with patient in the knee-chest position. There is no rash, tenderness, lesion or injury on the right labia. There is no rash, tenderness, lesion or injury on the left labia.There is erythema and tenderness in the vagina. No bleeding in the vagina. Musculoskeletal: Normal range of motion. She exhibits no edema. Lymphadenopathy: She has no cervical adenopathy. She has no axillary adenopathy. Neurological: She is alert and oriented to person, place, and time. She has normal reflexes. Skin: Skin is warm. Rash (rashy area around where the bandaid had been- below that the skin appearsto have some moist desquammation) noted. Rash is macular. Rash is not urticarial. Psychiatric: She has a normal mood and affect. Her behavior is normal. Labs: none today Mammogram done 05/2015 is negative Assessment and Plan: Breast cancer: No evidence of disease at this time. I have given her the choice of whether or not she wants to continue follow-up with us due to the fact that she is over 5 years out and given the low risk of her disease. She decided she would like to followup with her PCP at this point which I think is fine. I've asked her to followup about the vaginal lesion that is bothering her as well as forher weight loss and her foot. I suggested she keep the bandaid off for now. As a start, she will meet with our sod farmer today. I've encouraged her to call call for any future issues or problems. VM left with her PCP to alert them to the current issues. Melony Ordonez, MSN, FUEL DOCK ATTENDANT, AOCN Hematology/Oncology Nurse Practitioner [place], [place] [phone] documented in this encounter Plan of Treatment Not on file documented as of this encounter Procedures Procedure Name Priority Date/Time Associated Diagnosis Comments MAMMOGRAM SCAN 05/31/2015 12:00 AM EDT documented in this encounter Results * SCAN DOC: MAMMOGRAM (05/31/2015 12:00 AM EDT) Anatomical Region Laterality Modality Other Scanning Provider MEDIA MGR SCAN EXT O RDR/RSLT documented in this encounter Visit Diagnoses Diagnosis Malignant neoplasm of right female breast, unspecified site of breast documented in this encounter Care Teams Assistant Film Editor Relationship Specialty Start Date End Date Nelia Bone APRN PCP - General 08/05/14 10/24/22 documented as of this encounter
--- OUTSIDE RECORDS SUMMARY | 2024-01-24 00:22 | XMS_ITS | Encounter Summary ---
Author Organization [facility] [place] [address] Care Team Providers Care Asbestos Siding Mechanic Name Role Phone Laura Schuler MD Primary Care Provider Encounter Details Date Type Department Care Team (Late st Contact Info) Description 04/23/2013 Orders Only Hematology Oncology at [address] [phone] Andrez Dean MD [address] [place] [address] [id number] Social History Tobacco Use Types Packs/Day Years [...] Comments FILM LIBRARY STORAGE ONLY MAMMO Routine 04/23/2013 1:45 PM EST documented in this encounter Results * Film Library- Storage only Mammo (04/23/2013 1:45 PM EST) Anatomical Region Laterality Modality Other 04/23/2013 1:45 PM EST Narrative 07/10/2013 2:02 PM EDT This is a Non-reportable exam Procedure Note 07/10/2013 This is a Non-reportable exam Andrez Dean MD [facility] [place]M LIBRARY ORD ERABLES documented in this encounter Visit Diagnoses Not on filedocumented in this encounter Care Teams Asbestos Siding Mechanic Relationship Specialty Start Date End Date Laura Schuler MD [address] [place] [address] PCP - General 02/07/10 08/04/14 documented as of this encounter
--- OUTSIDE RECORDS SUMMARY | 2024-01-24 00:22 | XMS_ITS | Encounter Summary ---
Author Organization [facility] [place] [address] Care Team Providers Care Greenbelt Name Role Phone Laura Schuler MD Primary Care Provider Encounter Details Date Type Department Care Team (Late st Contact Info) Description 07/20/2010 Orders Only Hematology Oncology at [address] [phone] Andrez Dean MD [address] [place] [id number] Social History Tobacco Use Types Packs/Day Years Used Date Smoking Tobacco: Never Sex and Gender Information Value Date Recorded Sex Assigned at Not on file Gender Identity Not on file Sexual Orientation Not on file documented as of this encounter Plan of Treatment Not on file documented as of this encounter Visit Diagnoses Not on filedocumented in this encounter Care Teams Greenbelt Relationship Specialty Start Date End Date Laura Schuler MD [address] [place] [address] PCP - General 02/07/10 08/04/14 documented as of this encounter
--- OUTSIDE RECORDS SUMMARY | 2024-01-24 00:22 | XMS_ITS | Encounter Summary ---
Author Organization [facility] [address] Care Team Providers Care Side Framer Name Role Phone Laura Schuler MD Primary Care Provider [phone] Reason for Visit * Reason Comments Breast Cancer Encounter Details Date Type Department Care Team (Late st Contact Info) Description 07/20/2010 3:00 PM EDT Follow-Up Hematology Oncology at [address] [phone] Andrez Dean MD [address] [place] [address] [phone] Breast cancer, right breast (Primary Dx) Discharge Disposition: Home Social History Tobacco Use Types Packs/Day Years Used Date Smoking Tobacco: Never Sex and Gender Information Value Date Recorded Sex Assigned at Not on file Gender Identity Not on file Sexual Orientation Not on file documented as of this encounter Last Filed Vital Signs Vital Sign Reading Time Taken Comments Blood Pressure 125/58 07/20/2010 2:54 PM EDT Pulse 79 07/20/2010 2:54 PM EDT Temperature 36.3 ??C (97.3 ??F) 07/20/2010 2:54 PM ED T Respiratory Rate 16 07/20/2010 2:54 PM EDT Oxygen Saturation 97% 07/20/2010 2:54 PM EDT Inhaled Oxygen Concentration - - Weight 70.8 kg (156 lb) 07/20/2010 2:54 PM EDT Height 153.7 cm (5' 0.5) 07/20/2010 2:54 PM EDT Body Mass Index 29.97 07/20/2010 2:54 PM EDT documented in this encounter Progress Notes * Andrez Dean MD - 07/20/2010 4:19 PM EDT DIAGNOSIS: DCIS, upper inner quadrant of right breast, status post resection. SUBJECTIVE: Katlyn comes in today for followup. She is doing well overall. She did notice the lump in her right breast post radiation did not resolve and, because of that, she became concerned and did go to [facility] in March for mammograms for evaluation. They felt this was circulation sales representative of a hematoma. We spent some time today talking about the nature of DCIS again. She had forgotten the meaning of that, and so we had some further discussion on that and the prognosis associated with that was again stressed. Otherwise, review of systems is negative. Review of Systems Constitutional: Negative for fever, [...] felt to be a hematoma. It is unchanged. Laboratory today is reviewed. She is doing well with normal CBC and CMP. ASSESSMENT: Patient is doing well and has an extremely low risk of systemic recurrence, far lower than 1%. In this regard, I feel yearly followup would be indicated. PLAN: Follow up in a year with a CBC and CMP and mammography. She would like to move the mammography to [facility] here in [facility], and we will arrange for that. She will need the study to be done in March, so we will also time it at that point in time. Our followup, though, will be in July. Mammograms and followup, as noted. We will see her back in a year post mammograms and CBC and CMP. She will call if problems develop in the interim. Subjective: Patient ID: Katlyn Shirley is a 69 y.o. female. HPI Review of Systems Objective: Physical Exam Assessment and Plan: No problem-specific visit notes found for this encounter. documented in this encounter Plan of Treatment Not on file documented as of this encounter Procedures Procedure Name Priority Date/Time Associated Diagnosis Comments MAMMOGRAM SCAN 05/27/2014 12:00 AM EDT documented in this encounter Results * SCAN DOC: MAMMOGRAM (05/27/2014 12:00 AM EDT) Anatomical Region Laterality Modality Other Scanning Provider MEDIA MGR SCAN EXT O RDR/RSLT documented in this encounter Visit Diagnoses Diagnosis Breast cancer, right breast- Primary Malignant neoplasm of breast (female), unspecified site documented in this encounter Care Teams Side Framer Relationship Specialty Start Date End Date Laura Schuler MD [address] [place] [address] PCP - General 02/07/10 08/04/14 documented as of this encounter
--- OUTSIDE RECORDS SUMMARY | 2024-01-24 00:22 | XMS_ITS | Encounter Summary ---
Author Organization [facility] Address [facility] [place] [address] Care Team Providers Care Hog Slaughterer Name Role Phone JimmyNelia billy JUMANA Primary Care Provider [phone] Encounter Details Date Type Department Care Team (Late st Contact Info) Description 06/20/2009 Orders Only Radiation Oncology at [address] [phone] Mayuri Hull MD [facility] [place] [address] Social History Tobacco Use Types Packs/Day Years Used Date Smoking Tobacco: Never Assessed Sex and Gender Information Value Date Recorded Sex Assigned at Not on file Gender Identity Not on file Sexual Orientation Not on file documented as of this encounter Plan of Treatment Not on file documented as of this encounter Procedures Procedure Name Priority Date/Time Associated Diagnosis Comments SURGICAL PATHOLOGY REPORT Routine 06/20/2009 8:05 AM EDT documented in this encounter Results * Surgical Pathology Report (06/20/2009 8:05 AM EDT) Surgical Pathology Report [id number] ? Location: [facility] The signing pathologist has (i) examined the relevant preparation(s) for the specimen(s) and (ii) rendered or confirmed the diagnosis(es). . ?Pathology Surgical Pathology Final Report Clinical Information Specimen Submitted: CONSULTATION CASE A - 11 slides labeled [id number], collection date 05/18/09. B - 1 slides labeled [id number], collection date 05/30/09. [id number] Report to: [facility] Surgical Pathology [address] ??[address] Phone - [phone] Fax - [phone] Gross Description [facility]'s ([facility]) pathology slide(s) are reviewed. ??Refer to Diagnosis and Specimen Submitted for specific case information. For the full text of the [facility] report(s) please refer to Non-DH Documentation Pathology in the Clinical Information System (CIS). Microscopic Description Slides reviewed, microscopic description not recorded. Diagnosis CONSULTATION CASE A - 11 slides labeled [id number], A1- A3, A5, A7, A9, A12, A25, and 3 IHC collection date 05/18/09. Specimen: ? Breast, right, upper inner quadrant, ?needle-localize d excision. Histologic Type: ?Ductal carcinoma in situ. ?? Grade: ? Intermediate. ?? Necrosis: ?Present. ?? Pattern(s): ?Solid and cribriform. Tumor Size: ? 2.1 cm span, per report. Quadrants involved: ? Upper inner quadrant, per report. ?? (if mastectomy) Resection Margins (RM): ?? Distance, RM(s): ? Less than 0.1 cm (0.2 mm slide A7) to ?nearest undesignated inked RM. Microcalcificatio ns: ?Associated with DCIS. Nipple Involvement: ? N/A Correlation Bx's/Cytology: ?N/A Other findings: ? N/A Estrogen/progesti n receptors: Performed at [facility] on slide A3, reviewed. ?? ER immunoreactivity: ? Positive (see Diagnostic Lane*) ?? [place] immunoreactivity: ? Positive (see Diagnostic Lane*) pTNM: --- pTis (AJCC, 6th edition, 2003) . Diagnosis B - 1 slide labeled [id number], A12, collection date 05/30/09: Specimen: ? Right breast mass, upper inner quadrant, ?re-excision. Specimen Size: ?6.4 x 5.2 x 4.2 cm with skin measuring ?2.7 x 0.4 cm. Residual malignancy: ?Present. ?? Invasive Carcinoma: ??N/A ?? DCIS: ? Histology: ? Solid DCIS. ? Size: ?Involving one slide. ? Distance, margin: ??0.55 cm from nearest red RM (medial, per report). Prior Bx's correlation: See above. Other findings: ? Healing surgical site. CR-0 06/21/09 CCB 06/21/09 Verified by: ? Giovanni YAO, Lacey Vargas ?Pathologist ?(Electronic Signature) The attending pathologist whose signature appears on this report has reviewed all diagnostic slides and has edited the gross and/or microscopic portion of the report in rendering the final pathologic diagnosis. MAXIMO HERNANDES 06/20/2009 8:05 AM EDT Mayuri Hull MD PATHOLOGY/CYTOLOGY [facility] documented in this encounter Visit Diagnoses Not on filedocumented in this encounter Care Teams Hog Slaughterer Relationship Specialty Start Date End Date Nelia Bone APRN [address] [place] [address] PCP - General Urology 10/25/22 documented as of this encounter
--- OUTSIDE RECORDS SUMMARY | 2024-01-24 00:22 | XMS_ITS | Encounter Summary ---
Author Organization [facility] Address [facility] [place] [address] Care Team Providers Care Defect Cutter Name Role Phone Laura Schuler MD Primary Care Provider [phone] Encounter Details Date Type Department Care Team (Late st Contact Info) Description 04/17/2010 11:30 AM EST Office [place] [phone] Aby Yañez, MULTI LINE CLAIMS ADJUSTER [facility] [place] [address] Discharge Disposition: Home Social History Tobacco Use [...] on filedocumented in this encounter Care Teams Defect Cutter Relationship Specialty Start Date End Date Laura Schuler MD [address] [place] [address] PCP - General 02/07/10 08/04/14 documented as of this encounter
--- OUTSIDE RECORDS SUMMARY | 2024-01-24 00:22 | XMS_ITS | Encounter Summary ---
Author Organization [facility] [place] [address] Care Team Providers Care Tier Truck Driver Name Role Phone Nelia Bone HELPER SHEAR OPERATOR Primary Care Provider [phone] Encounter Details Date Type Department Care Team (Late st Contact Info) Description 02/24/2015 11:15 AM EST Office Visit Hematology/Oncology at [address] [phone] Melony Ordonez APRN [address] [facility] [place] [address] Breast cancer, right breast Social History Tobacco Use Types Packs/Day Years Used Date Smoking Tobacco: Never Sex and Gender Information Value Date Recorded Sex Assigned at Not on file Gender Identity Not on file Sexual Orientation Not on file documented as of this encounter Last Filed Vital Signs Vital Sign Reading Time Taken Comments Blood Pressure 133/54 02/24/2015 11:00 AM EST Pulse 73 02/24/2015 11:00 AM EST Temperature 36.4 ??C (97.5 ??F) 02/24/2015 11:[address] Respiratory Rate 18 02/24/2015 11:00 AM EST Oxygen Saturation 100% 02/24/2015 11:00 AM EST Inhaled Oxygen Concentration - - Weight 58.5 kg (129 lb) 02/24/2015 11:00 AM EST Height 153.7 cm (5' 0.51) 02/24/2015 11:[address] Body Mass Index 24.77 02/24/2015 11:00 AM EST documented in this encounter Progress Notes * HillMelony limon, HELPER SHEAR OPERATOR - 02/24/2015 12:09 PM EST Subjective: Patient ID: Katlyn Shirley is a 74 y.o. female. HPI Comments: Katlyn is here for follow-up. She is now 5+ years out from her Stage 0 breast cancer. She is feeling well and looking forward to being with her daughter and grandchildren over the holidays. Patient Active Problem List Diagnosis ??? Hypertension ??? Osteoporosis ??? Breast cancer, right breast Right breast cancer upper inner quadrant: pTisNoMo-- DCIS, intermediate grade, + necrosis, 2.1 cm, ER+/ID+ 05/30/2009 biopsy Reexcision on May 30, 2009. hematoma surgical site Radiation therapy: 6100 cGy in 33 FRACTIONS completed 09/05/2009 BP 133/54 mmHg Pulse 73 Temp(Src) 36.4 ??C (97.5 ??F) (Oral) Resp 18 Ht 153.7 cm (5' 0.51) Wt 58.514 kg (129 lb) BMI 24.77 kg/m2 SpO2 100% Wt Readings from Last 3 Encounters: 02/24/15 58.514 kg (129 lb) 08/05/14 56.019 kg (123 lb 8 oz) 08/03/13 56.246 kg (124 lb) Review of Systems Constitutional: Negative. Negative for appetite change (although she notes that she doesn't get enough fluids). HENT: Negative. Eyes: Negative. Respiratory: Negative. Cardiovascular: Negative. Gastrointestinal: Negative. Genitourinary: Negative. Musculoskeletal: Negative. Skin: Negative. Neurological: Negative. Psychiatric/Behavioral: Negative. Objective: [...] exhibits no mass. There is no guarding. Musculoskeletal: Normal range of motion. She exhibits no edema. Lymphadenopathy: She has no cervical adenopathy. She has no axillary adenopathy. Neurological: She is alert and oriented to person, place, and time. She has normal reflexes. Skin: Skin is warm. Psychiatric: She has a normal mood and affect. Her behavior is normal. Labs: 02/22/15 CBC: WBC 5.32 hemoglobin 12.4 platelets 226 CMP: Calcium 9.6 glucose 92 BUN 28 creatinine 1.25 total protein 7.2 albumin 4.2 total bili 0.45 alkaline phosphatase 55 sodium 139 potassium 4.8 AST 25 ALT 24 Assessment and Plan: Breast cancer: No evidence of disease at this time. I have given her the choice of whether or not she wants to continue follow-up with us due to the fact that she is over 5 years out and given the low risk of her disease. She decided she would like to see us in a year, and we'll think about discontinuing visits at that time. Melony Ordonez, MSN, WEB SERVICES DEVELOPER, AOCN Hematology/Oncology Nurse Practitioner [place], [place] [phone] documented in this encounter Plan of Treatment Not on file documented as of this encounter Visit Diagnoses Diagnosis Breast cancer, right breast Malignant neoplasm of breast (female), unspecified site documented in this encounter Care Teams Tier Truck Driver Relationship Specialty Start Date End Date Nelia Bone APRN PCP - General 08/05/14 10/24/22 documented as of this encounter
--- OUTSIDE RECORDS SUMMARY | 2024-01-24 00:22 | XMS_ITS | Encounter Summary ---
Author Organization [facility] Address [facility] [place] [address] Care Team Providers Care Kitchen And Counter Worker Name Role Phone Laura Schuler MD Primary Care Provider [phone] Encounter Details Date Type Department Care Team (Latest Contact Info) Description 04/17/2010 12:39 PM EST - 04/17/2010 11:59 PM [facility] Hospital Encounter XRay at [address] [place] [phone] Laura Schuler MD [address] [place] [address] Discharge Disposition: Home Social History Tobacco Use [...] on filedocumented in this encounter Care Teams Kitchen And Counter Worker Relationship Specialty Start Date End Date Laura Schuler MD [address] [place] [address] PCP - General 02/07/10 08/04/14 documented as of this encounter
--- OUTSIDE RECORDS SUMMARY | 2024-01-24 00:22 | XMS_ITS | Encounter Summary ---
Author Organization [facility] Address [facility] [address] [place] [address] Care Team Providers Care Mold Shaker Name Role Phone Laura Schuler MD Primary Care Provider [phone] Encounter Details Date Type Department Care Team (Late st Contact Info) Description 07/10/2013 External Results XRay at [address] [place] [phone] Provider, Scanning Social History Tobacco Use Types [...] Date/Time Associated Diagnosis Comments MAMMOGRAM SCAN Routine 04/23/2013 documented in this encounter Results * Scan Doc: Mammogram (04/23/2013) Anatomical Region Laterality Modality Other Scanning Provider MEDIA MGR SCAN EXT O RDR/RSLT documented in this encounter Visit Diagnoses Not on filedocumented in this encounter Care Teams Mold Shaker Relationship Specialty Start Date End Date Laura Schuler MD [address] [place] [address] PCP - General 02/07/10 08/04/14 documented as of this encounter
--- NOTE | 2024-01-24 10:50 | DI.MAMMO_ITS ---
Exam(s) MG MAMMO SCREENING 60 MIN DUR EXAM: MG MAMMO SCREENING 60 MIN DUR CLINICAL HISTORY: breast cancer screening, hx of right breast cancer,z12.39 TECHNIQUE: Bilateral full field digital CC and MLO mammographic images were obtained with 3D tomosyn thesis and utilizing computer aided detection (CAD). COMPARISON: Available for comparison. FINDINGS: Masses/Architectural Distortion: The patient has had a prior right lumpectomy. No suspicious nodules are seen. No new areas of architectural distortion are present. Microcalcifications: No suspicious pleomorphic-type are seen. Skin Thickening/Nipple Retraction: None. IMPRESSION: 1. No significant interval change with no specific features of malignancy noted. 2. Unless there is more urgent need, screening mammography is recommended, as per [employer] guidelines. 3. Findings were discussed with the patient on the date of the examination. BI-RADS Category 2 - Benign Findings Breast Density - Category C - Heterogeneously dense Breast density category C or D implies that the patient has dense breast tissue. Dense breast tissue is very common and is not abnormal but dense breast tissue can make it harder to find cancer on a ma mmogram. Also, dense breast tissue may increase their breast cancer risk. This information about the result of the mammogram report was provided to the patient to raise their awareness. Use this report when you speak with the patient about their risks for breast cancer, which includes their family hist ory. At that time, you may recommend for more screening tests (Ultrasound or MRI) as they might be us eful based on their risk. A negative radiographic report should not delay biopsy if a dominant or clinically suspicious mass is present. Up to ten percent of cancers are not identified on mammography. A negative report may reinforce clinical impression. Adenosis and dense breasts may obscure an underlying neoplasm. False positive reports average 6 to 10%. Patient will receive a letter notifying them of these results.
== END 2024-01-24 00:35 ==
LOC: DI 00:18
PROVIDERS: PCP Nurse Practitioner Family; Visit Provider Nurse Practitioner Family
DX: Z12.31 Encounter for screening mammogram for malignant neoplasm of breast (principal); R92.333 Mammographic heterogeneous density, bilateral breasts
CPT/HCPCS: 77063; 77067

== ENCOUNTER 2024-07-31 01:35 | Outpatient (CLI) | payer MEDICARE, MEDICAID, SELFPAY ==
[2024-07-31 12:26] LABS: HCT 39.5 % (36.0-46.0); HGB 12.6 g/dL (11.2-15.7); MCH 30.2 pg (27.0-33.0); MCHC 31.9 % (32.0-36.0); MCV 95 fL (80-95); MPV 12.9 fL (8.0-11.0); Platelet Count 188 10^3/uL (130-400); RBC 4.17 10^6/uL (3.93-5.22); RDW 13.2 % (11.7-14.6); RDW-SD 46.2 fL; WBC 5.21 10^3/uL (4.4-10.8)
[2024-07-31 12:35] LABS: Hemoglobin A1C 5.9 % (<5.7)
[2024-07-31 12:38] LABS: Anion Gap 5.1 mmol/L (3-11); BUN 35 mg/dL (7-18); CO2 30.9 mmol/L (21.0-32.0); CREATININE 1.1 mg/dL (0.55-1.02); Calcium 9.7 mg/dL (8.5-10.1); Chloride 103 mmol/L (98-107); Estimated GFR 50.48 (mL/min/1.73m2); Glucose 99 mg/dL (74-106); PHOSPHORUS 4.1 mg/dL (2.6-4.7); Sodium 139 mmol/L (136-145); Uric Acid 3.5 mg/dL (2.6-6.0)
[2024-07-31 12:58] LABS: COMMENT (LAB VIEW ONLY) 76.34 mg/dL; Microalb ug/mg Crea 8.6 ug/mg Cr
[2024-07-31 18:57] LABS: Parathyroid Hormone,Intact 33 pg/mL (19-88)
== END 2024-07-31 01:36 | disposition home or self-care (01) ==
LOC: LOS 01:35
PROVIDERS: PCP Nurse Practitioner Family; Visit Provider Nurse Practitioner Family
DX: R73.03 Prediabetes (principal); I10 Essential (primary) hypertension; N18.30 Chronic kidney disease, stage 3 unspecified
CPT/HCPCS: 36415; 80048; 85027; 82043; 82570; 83036; 83970; 84100; 84550

== ENCOUNTER → 2025-03-04 00:20 | Outpatient (CLI) | payer MEDICARE, MEDICAID, SELFPAY ==
--- NOTE | 2025-03-04 08:30 | DI.MAMMO_ITS ---
Exam(s) MG MAMMO SCREENING 60 MIN DUR EXAM: MG MAMMO SCREENING 60 MIN DUR CLINICAL HISTORY: breast cancer screening,personal h/o rt breast ca,z85.3,z12.39 TECHNIQUE: Bilateral full field digital CC and MLO mammographic images were obtained with 3D tomosynthesis and utilizing computer aided detection (CAD). COMPARISON: Comparison is made with prior examinations. FINDINGS: Masses/Architectural Distortion: No suspicious masses or areas of architectural distortion are present. The patient is status post right lumpectomy. Microcalcifications: No suspicious pleomorphic-type are seen. Skin Thickening/Nipple Retraction: None. IMPRESSION: 1. No significant interval change with no specific features of malignancy noted. 2. Unless there is more urgent need, screening mammography is recommended, as per [employer] guidelines. 3. The findings were discussed with the patient on the date of the examination. BI-RADS Category 2 - Benign Findings Breast Density - Category B - There are scattered areas of fibroglandular density. Breast density Category C or D implies that the patient has dense breast tissue. Dense breast tissue can make it harder to find cancer on a mammogram. Dense breast tissue is also associated with an increased risk of breast cancer. This information about the result of the mammogram report was provided to the patient to raise their awareness. Use this report when you speak with the patient about their risks for breast cancer, which includes their family history. At that time, you may recommend additional screening tests (Ultrasound or MRI) as these tests may add significant information. A negative radiographic report should not delay biopsy if a dominant or clinically suspicious mass is present. Up to ten percent of cancers are not identified on mammography. A negative report may reinforce clinical impression. Adenosis and dense breasts may obscure an underlying neoplasm. False positive reports average 6 to 10%. Patient will receive a letter notifying them of these results.
== END ==
LOC: DI 00:20
PROVIDERS: PCP Nurse Practitioner Family; Visit Provider Nurse Practitioner Family
DX: Z12.31 Encounter for screening mammogram for malignant neoplasm of breast (principal); Z85.3 Personal history of malignant neoplasm of breast
CPT/HCPCS: 77063; 77067